=== PATIENT | female | born 1940 | race Caucasian/White ===

== ENCOUNTER → 2022-06-01 | Outpatient (CLI) | payer MEDICARE, SELFPAY ==
--- NOTE | 2022-06-01 13:31 | ECHOD_ITS ---
Reason For Study: AORTIC VALVE STENOSIS Procedure This was a 2D Doppler, Color Flow transthoracic echocardiogram. Exam performed in department. Left Ventricle Normal LV size. Left ventricular systolic function is normal. The estimated ejection fraction is 55 %. Stage 2 diastolic dysfunction. No regional wall motion abnormalities noted. Right Ventricle Normal RV size. Normal systolic function. Mitral Valve Normal mitral valve. Mild (1+) eccentric mitral valve insufficiency. Tricuspid Valve Normal tricuspid valve. Mild tricuspid valve insufficiency. Pulmonary artery systolic pressure is 32 mmHg. Aortic Valve Trisinus/trileaflet aortic valve. Moderate focal aortic valve calcification. Peak aortic valve gradient 38 mmHg. Mean aortic valve gradient 24 mmHg. Mild to moderate aortic stenosis. Calculated aortic valve area (continuity equation) is 0.9 cm2. Mild (1+) aortic valve insufficiency. Pulmonic Valve Normal pulmonic valve. Trivial pulmonic valve insufficiency. Great Vessels Normal aortic root. The pulmonary artery is normal size. Normal inferior vena cava. Pericardium/Pleural No pericardial effusion. MMode/2D Measurements & Calculations LVIDd: 4.7 cm IVSd: 0.98 cm LVOT diam: 2.0 cm LVIDs: 3.2 cm LVPWd: 0.97 cm LVOT area: 3.3 cm2 RVDd: 3.6 cm FS: 30.8 % Ao root diam: 3.1 cm LAV(MOD-bp): 66.1 ml LVAd ap4: 27.9 cm2 LAV(MOD-bp) Indexed: 39.0 ml/m2 LVLd ap4: 7.0 cm LAV(MOD-sp2): 65.8 ml EDV(MOD-sp4): 88.1 ml LAV(MOD-sp4): 60.2 ml EDV(sp4-el): 93.7 ml LVAs ap4: 15.3 cm2 LVLs ap4: 5.6 cm ESV(MOD-sp4): 36.1 ml ESV(sp4-el): 35.9 ml EF(MOD-sp4): 59.0 % EF(sp4-el): 61.7 % SV(MOD-sp4): 52.0 ml SV(sp4-el): 57.8 ml LA A4 area: 20.6 cm2 LA dimension(2D): 4.3 cm RA A4 area: 13.9 cm2 Time Measurements MV dec time: 0.24 sec Doppler Measurements & Calculations MV E max ever: 95.6 cm/sec Lat Peak E' Ever: 11.3 cm/sec Med Peak E' Ever: 7.1 cm/sec MV A max ever: 66.3 cm/sec E/E' lat: 8.5 E/E' med: 13.5 MV E/A: 1.4 Ao V2 max: 307.0 cm/sec LV V1 max: 87.1 cm/sec SV(LVOT): 67.2 ml Ao max P.8 mmHg LV V1 max P.0 mmHg Ao V2 mean: 232.7 cm/sec LV V1 mean P.5 mmHg Ao mean P.0 mmHg LV V1 mean: 57.0 cm/sec Ao V2 VTI: 71.7 cm LV V1 VTI: 20.6 cm SATISH(I,D): 0.94 cm2 SATISH(V,D): 0.93 cm2 PA V2 max: 82.3 cm/sec TR max ever: 266.7 cm/sec TR max P.8 mmHg ECHO/Echo Complete Interpretation Summary Normal LV size. Left ventricular systolic function is normal. The estimated ejection fraction is 55 %. Moderate focal aortic valve calcification. Stage 2 diastolic dysfunction. Mean aortic valve gradient 24 mmHg. Mild to moderate aortic stenosis. Calculated aortic valve area (continuity equation) is 0.9 cm2. Ordering Physician: MITRA MORENO Referring Physician: MEETA CARLIN Performed By: Miranda Gillespie RDCS
== END | disposition home or self-care (01) ==
LOC: CVS 13:28
PROVIDERS: PCP Internal Medicine
DX: I35.0 Nonrheumatic aortic (valve) stenosis (principal)
CPT/HCPCS: 93306

== ENCOUNTER 2022-07-25 12:52 | Emergency (ER) | payer MEDICARE, SELFPAY ==
[2022-07-25 12:54] VITALS: BP 139/76; PULSE 78; RESP 14; TEMP 37.3; O2SAT 95; BMI 28.4
[2022-07-25 14:34] VITALS: O2SAT 96
--- NOTE | 2022-07-25 14:43 | RAD_ITS ---
STUDY: X-RAY CHEST REASON FOR EXAM: Female, 82 years old. cough TECHNIQUE: Single AP portable view of the chest. COMPARISON: None. FINDINGS: There are interstitial fibrotic changes of the lungs. No superimposed alveolar opacity within the lungs to suggest pneumonia or atelectasis per There is no demonstrated pleural abnormality. Normal size heart. Normal mediastinum and herb. Normal visualized pulmonary arteries. Normal visualized aortic arch and descending thoracic aorta. Normal visualized thoracic spine. Normal visualized ribs, clavicles, and shoulders. There is no demonstrated abnormality of the visualized soft tissue structures of the upper abdomen. RAD/Chest 1 View (Portable) IMPRESSION: Scarring but no active disease. Electronically Signed: Gold De Los Santos MD at 16:02 EST ,
--- NOTE | 2022-07-25 14:43 | EX.ED.VIS.UR ---
HPI HPI - URI History of Present Illness Chief Complaint: Cough Detail of Chief Complaint: For weeks to months Informant: patient and spouse/S.O. Onset/Context/Timing Onset: Weeks and Month(s) Context: Gradual Onset Timing: Intermittent Current Severity: Mild Maximum Severity: Mild Associated Symptoms Associated Symptoms: Positive for Productive Cough and - (Yellowish and green sputum. No hemoptysis.); Negative for Shortness of Breath Narrative Narrative: 82-year-old female past medical history of reflux. Said since March she has had intermittent episodes of cough with yellowish to greenish sputum. Intermittent fevers which have resolved. We will do an urgent care 2 weeks ago. Was placed on expectorant. Not treated with any antibiotics. They did not do an x-ray. She is also been complaining chronic diarrhea. Denies any melena. Has an upcoming GI appointment. Smoked in the past but currently non-smoker. Prior similar symptoms: Yes Recent Illness/Hospitalization: No ROS ROS ED ROS Narrative Cough. Diarrhea. Review of Systems ROS Unobtainable: Denies due to encephalopathy Constitutional Constitutional ED: Reports fever(s); Denies chills Eyes Eyes: Denies blurry vision ENT ENT ED: Denies ear pain Cardiovascular Cardiovascular: Denies chest pain or palpitations Respiratory/Chest Respiratory/Chest: Reports cough; Denies dyspnea Gastrointestinal Gastrointestinal: Reports diarrhea; Denies abdominal pain, constipation, melena, nausea or vomiting Genitourinary Genitourinary ED: Denies dysuria or hematuria Musculoskeletal Musculoskeletal: Denies arthralgias Integumentary Denies abscess Neurologic Neurologic: Denies headache(s) Psychiatric Psychiatric: Denies anxiety Endocrine Endocrinology: Denies cold intolerance Hematologic/Lymphatic Hematologic/Lymphatic: Denies easy bleeding Allergic/Immunologic Allergic/Immunologic ED: Denies mouth swelling or tongue swelling [facility] Medical History Bronchitis FHx: cholecystectomy Home Medications levofloxacin 500 mg tablet 500 mg PO DAILY #7 tabs 07/25/22 [Rx Last Taken Unknown] prednisone 20 mg tablet 40 mg PO DAILY 5 days #10 tabs 07/25/22 [Rx Last Taken Unknown] Allergy/AdvReac Type Severity Reaction Status Date / Time azithromycin Allergy Hives Verified 07/25/22 12:54 codeine AdvReac Upset Verified 07/25/22 12:54 Stomach Social History Smoking Status: Never smoker EXAM Physical Exam Narrative Exam Narrative: 82-year-old female no acute distress. Vital signs stable afebrile. Pulse ox 95% on room air no signs hypoxia. H EENT exam unremarkable. Moist Riis members. Neck nontender no JVD. No lymphadenopathy. Lungs few scant expiratory wheezes. No rales or rhonchi. Equal symmetrical. Heart regular rhythm rate about 80 no murmur. Abdomen soft nontender. Moving all 4 extremities. Calves are nontender without edema or cords. Neurologic exam awake alert no focal motor deficits. Back nontender. Const Vital Signs: 07/25/22 12:54 07/25/22 14:34 07/25/22 14:54 Temperature 99.1 F Temperature Source Temporal Pulse Rate 78 72 Respiratory Rate 14 18 Respiratory Effort Normal Blood Pressure 139/76 H Blood Pressure Mean 97 Pulse Ox 95 Oxygen Delivery Method Room Air Room Air 07/25/22 14:54 Temperature Temperature Source Pulse Rate Respiratory Rate Respiratory Effort Blood Pressure Blood Pressure Mean Pulse Ox 97 Oxygen Delivery Method Room Air Positive well nourished and well developed; Negative for obese, cachectic or contractures General Appearance ED: well developed and NAD; Negative for cachectic, contractures, cyanotic, diaphoretic or pallor Nutritional Appearance: Negative for cachectic or obese HEENT Reports moist mucous membranes; Denies dry mucous membranes normocephalic and atraumatic; Negative for scalp tenderness Face and Sinus: Negative for sinus tenderness Mouth ED: No dry mucous membranes Mouth: No dry mucous membranes Teeth and Gingiva: Negative for caries Throat: posterior oropharynx normal Eyes PERRL and EOMs intact bilaterally General Eye ED: Negative for pale conjunctiva or scleral icterus Neck no lymphadenopathy, supple, no meningeal signs and no JVD General: Negative for anterior neck swelling or lymphadenopathy Resp normal respiratory effort and No clear to auscultation bilaterally Effort and Inspection: Negative for retractions or pain with movement Auscultation: wheezes; Negative for rales, rhonchi or diminished lung sounds Cardio S1 normal heart sound, S2 normal heart sound and no murmurs Rate: regular rate; Negative for bradycardia or tachycardic Rhythm: regular rhythm GI non-tender, non-distended and no masses Inspection: Negative for abdominal distention Auscultation: normoactive bowel sounds Palpation: soft; Negative for tender or guarding Back/Spine no CVA tenderness and normal ROM General Back: Negative for CVA tenderness Cervical Spine: Negative for cervical spine tenderness Thoracic Spine / Upper Back: Negative for thoracic spinal tenderness Lumbar Spine / Lower Back: Negative for lumbar spinal tenderness Sacrum: Negative for tenderness Extremity normal to inspection and full ROM General Extremety ED: Negative for cyanosis or tenderness General Extremity: Negative for cyanosis Neuro oriented x3 and CN's II-XII intact bilaterally Sensorium / Orientation: alert, oriented to person, oriented to place and oriented to time; Negative for orientation impaired, lethargic or stuporous Motor Exam: strength 5/5 throughout; Negative for general weakness or strength abnormal Psych mental status grossly normal Appearance: Negative for other Attitude: No agitated Mood & Affect: Negative for depressed or anxious Skin General Skin Exam: Negative for jaundice or pallor Lesions: no lesions Rashes: no rashes Trauma: Negative for abrasion or laceration MDM MDM MDM Narrative Medical decision making narrative: 82-year-old female with chronic cough for the last 3 to 4 months. Chest x-ray to be obtained. She is also wheezing I will give her DuoNeb aerosols., She has had diarrhea but clinically does not look dehydrated. Has been holding down p.o. fluids. Repeat exam unchanged.Started on Levaquin for URI and Prednisone for the wheezing. Radiography Diagnostic Testing: Both legs. Chest x-ray, portable, single view interpreted by myself shows no acute abnormality. Normal cardiac silhouette. No infiltrate. Discharge Plan Triage Chief Complaint: Cough ED Provider: Marcelino Santiago Dx/Rx/DC Orders Clinical Impression: Bronchitis, Diarrhea Prescriptions: New levofloxacin 500 mg tablet 500 mg PO DAILY Qty: 7 0RF prednisone 20 mg tablet 40 mg PO DAILY 5 Days Qty: 10 0RF Primary Care Provider: Dewayne Rios Referrals: Dewayne Rios MD [Primary Care Provider] - 1 Week if not improving Activity Restrictions/Additional Instructions: Plenty of fluids and rest. Imodium as needed for your diarrhea. Levaquin, antibiotic, for the cough. Prednisone for the wheezing. Follow up if not improving. Disposition Disposition: Home, Self Care
[2022-07-25] MEDS: Ipratropium/Albuterol Sulfate 3 ML AMPUL.NEB INHALATION (14:50)
[2022-07-25 14:54] VITALS: PULSE 72; RESP 18; O2SAT 97
== END 2022-07-25 15:50 | disposition home or self-care (01) ==
PROVIDERS: Emergency Provider Emergency Medicine; PCP Internal Medicine; Visit Provider Emergency Medicine
DX: K52.9 Noninfective gastroenteritis and colitis, unspecified (principal); J40 Bronchitis, not specified as acute or chronic; Z87.891 Personal history of nicotine dependence; R09.3 Abnormal sputum
CPT/HCPCS: 99281; 71045; 94640; 99282

== ENCOUNTER 2022-07-28 14:32 | Emergency (ER) | payer MEDICARE, SELFPAY ==
[2022-07-28 14:33] VITALS: BP 124/93; PULSE 65; RESP 17; TEMP 36.2; O2SAT 94; BMI 26.4
--- NOTE | 2022-07-28 15:04 | EKG12_ITS ---
Test Reason : n/v 2 days, weak Blood Pressure : / mmHG Vent. Rate : 062 BPM Atrial Rate : 062 BPM P-R Int : 156 ms QRS Dur : 076 ms QT Int : 482 ms P-R-T Axes : 104 003 -06 degrees QTc Int : 489 ms Normal sinus rhythm Nonspecific ST abnormality Abnormal ECG Confirmed by LOBITO AUGUSTE, ELKE ([id number]), assignment editor DEMETRIA GONZALEZ ([id number]) on 08/02/2022 12:34:50 PM Referred By: Rosaline Confirmed By:ELKE ROBIN MD
--- NOTE | 2022-07-28 15:16 | NURSING ---
NO OLD EKGS
[2022-07-28] MEDS: 0.9% Normal Saline 1,000 ML 500 ML IV (15:18)
[2022-07-28] MEDS: Ondansetron 4 MG/2 ML Vial IV (15:19)
[2022-07-28 15:35] LABS: Absolute Lymphocyte Count 1.79 X10^3/uL (0.83-4.51); Absolute Neutrophil Count 8.1 X10^3/uL (2.0-7.7); Basophil# 0.06 X10^3/uL; Basophil% 0.5 % (0-1); Eosinophil# 0.03 X10^3/uL; Eosinophils% 0.3 % (0-5); Hematocrit 29.4 % (37-47); Lymphocyte # 1.79 X10^3/ul (0.83-4.51); Lymphocyte % 16.3 % (19-41); Mean Corp Hgb Conc 30.6 g/dL (32-36); Mean Corpuscular Hgb 25.6 pg (27.0-32.0); Mean Corpuscular Volume 83.8 fL (81-99); Monocyte# 0.93 X10^3/uL; Monocyte% 8.5 % (0-10); NRBC Flagged by Analyzer 0 % (0-5); Neutrophil % 73.9 % (47-70); Platelet Count 586 K/mm3 (150-450); RBC Distribution Width CV 15.6 % (11.6-14.6); RBC Distribution Width SD 47.1 fl (35.1-43.9); Red Blood Count 3.51 M/mm3 (4.2-5.4)
[2022-07-28 15:50] LABS: ALB/GLOB Ratio 0.7 RATIO (0.9-2.4); AST(SGOT) 16 U/L (15-37); Alanine Aminotransfer ALT/SGPT 21 U/L (13-56); Alkaline Phosphatase 65 U/L (45-117); Anion Gap 5 (5-15); BUN 15 mg/dL (7-18); BUN/Creat Ratio 19.8 RATIO (10-20); Calcium,Total 9.2 mg/dL (8.5-10.1); Chloride 110 mmol/L (98-107); Creatinine, Serum 0.76 mg/dL (0.55-1.02); EST Glomerular Filtration Rate 78 mL/min (>60); Est Glom Filt Rate - Afr Amer 94 mL/min (>60); Estimated Creatinine Clearance 33.29 ml/min; Globulin 4.5 g/dL (2.2-4.2); Glucose 102 mg/dL (74-106); Lipase 59 U/L (73-393); Potassium 3.4 mmol/L (3.5-5.1); Protein, Total 7.5 g/dL (6.4-8.2); Sodium Level 144 mmol/L (136-145)
[2022-07-28 16:41] LABS: Red Blood Cells-Urine 0 SEEN /hpf (0-5)
--- NOTE | 2022-07-28 16:43 | EX.ED.DYSGE1 ---
HPI History of Present Illness Chief Complaint: Nausea/Vomiting Informant: patient Narrative Narrative: Patient is an 82 year old female with history of chronic diarrhea presenting with nausea and vomiting. Patient has had an ongoing cough and was prescribed Levaquin 3 days ago. Since starting this, she has had nausea and vomiting. She has now also had worsening of her chronic diarrhea. She denies any significant abdominal pain but notes her abdomen feels sore from the vomiting. She denies any black or blood in her stool. denies any fevers. No change in her cough. No other complaints at this time. [facility] Medical History Bronchitis FHx: cholecystectomy Home Medications levofloxacin 500 mg tablet 500 mg PO DAILY #7 tabs 07/25/22 [Rx Last Taken Unknown] levofloxacin 500 mg tablet 500 mg PO DAILY #7 tabs 07/25/22 [Rx Last Taken Unknown] prednisone 20 mg tablet 40 mg PO DAILY 5 days #10 tabs 07/25/22 [Rx Last Taken Unknown] prednisone 20 mg tablet 40 mg PO DAILY 5 days #10 tabs 07/25/22 [Rx Last Taken Unknown] cefdinir 300 mg capsule 300 mg PO BID #10 caps 07/28/22 [Rx Last Taken Unknown] ferrous gluconate 324 mg (38 mg iron) tablet 324 mg PO BID #60 tabs 07/28/22 [Rx Last Taken Unknown] ondansetron 4 mg disintegrating tablet 4 mg PO Q6H PRN nausea and vomiting #20 tabs 07/28/22 [Rx Last Taken Unknown] prednisone 20 mg tablet 40 mg PO DAILY #4 tabs 07/28/22 [Rx Last Taken Unknown] Allergy/AdvReac Type Severity Reaction Status Date / Time azithromycin Allergy Hives Verified 07/28/22 14:32 codeine AdvReac Upset Verified 07/28/22 14:32 Stomach Social History Smoking Status: Never smoker ROS ROS ED Constitutional Constitutional ED: Denies chills or fever(s) Eyes Eyes: Denies change in vision ENT ENT ED: Denies rhinorrhea or sore throat Cardiovascular Cardiovascular: Denies chest pain or racing heartbeat Respiratory/Chest Respiratory/Chest: Reports cough; Denies dyspnea Gastrointestinal Gastrointestinal: Reports abdominal pain, diarrhea, nausea and vomiting; Denies constipation or melena Genitourinary Genitourinary ED: Denies dysuria or hematuria Musculoskeletal Musculoskeletal: Denies arthralgias or myalgias Integumentary Denies rash Neurologic Neurologic: Denies headache(s) Psychiatric Psychiatric: Denies anxiety EXAM Physical Exam Const Vital Signs: 07/28/22 14:33 Temperature 97.1 F L Temperature Source Temporal Pulse Rate 65 Respiratory Rate 17 Blood Pressure 124/93 H Blood Pressure Mean 103 Pulse Ox 94 Oxygen Delivery Method Room Air Positive well nourished and well developed General Appearance ED: well developed and NAD HEENT Reports moist mucous membranes Negative for trauma Eyes PERRL and EOMs intact bilaterally Neck supple Chest Wall inspection of chest normal and palpation of chest normal Resp normal respiratory effort Auscultation: wheezes scattered wheezes Cardio regular rate, regular rhythm and no murmurs GI normal to inspection, nondistended, normoactive bowel sounds and non-tender Back/Spine no CVA tenderness Neuro oriented x3 Sensorium / Orientation: alert Psych mental status grossly normal Skin no rashes or lesions noted and no wounds MDM MDM MDM Narrative Medical decision making narrative: Evaluate for worsening nausea and vomiting after being started on Levaquin for bronchitis. Patient appears nontoxic and in no acute distress. Her vital signs are normal. I did check basic labs to rule out any significant dehydration, electrolyte derangement or leukocytosis/other signs of infection. Patient is found to be anemic with a hemoglobin of 9.0. This appears to be microcytic. Patient states she has a longstanding history of anemia and she was eating high iron foods which had seemed to help it. She does not know what her baseline is. She does not seem to be symptomatic from the anemia and patient be referred to hematology as she does not have an appointment to see her primary care doctor for another 2 months. Patient's CMP is largely unremarkable. Her potassium is mildly low at 3.4. Her urinalysis is consistent with UTI as she has 10-25 white blood cells and 1+ bacteria with 500 leukocyte esterase. Patient notes the last time she had a kidney infection her only symptom was nausea and vomiting. I will switch the patient from Levaquin to cefdinir as this should cover for bronchitis as well as UTI. Urine culture is sent. Patient is agreeable this plan of care. Patient also be discharged home with 2 more days of prednisone as well as Zofran. She will be given a prescription of iron but counseled the hold off starting that until her nausea and vomiting has resolved. In addition she is encouraged to use her inhaler she does have scattered wheeze on exam and I think she probably does have a component of chronic bronchitis/reactive airway. Patient is tolerating oral fluids in the ER. Counseled on return precautions. She continues to have a benign abdominal exam and I do not think imaging is indicated at this time. Discharged home in improved and stable condition. Lab Data Attestation: I reviewed the patient's lab results. Labs: Laboratory Results - last 24 hr 07/28/22 07/28/22 07/28/22 15:20 15:20 16:32 WBC 11.0 RBC 3.51 L Hgb 9.0 L Hct 29.4 L MCV 83.8 MCH 25.6 L MCHC 30.6 L RDW Std Deviation 47.1 H RDW Coeff of Juanito 15.6 H Plt Count 586 H MPV 10.0 Immature Gran % (Auto) 0.500 Neut % (Auto) 73.9 H Lymph % (Auto) 16.3 L Cotton % (Auto) 8.5 Eos % (Auto) 0.3 Baso % (Auto) 0.5 Absolute Neuts (auto) 8.1 H Absolute Lymphs (auto) 1.79 Nucleated RBC % 0 Sodium 144 Potassium 3.4 L Chloride 110 H Carbon Dioxide 29.0 Anion Gap 5 BUN 15 Creatinine 0.76 Estim Creat Clear Calc 33.29 Est GFR (MDRD) Af Amer 94 Est GFR (MDRD) Non-Af 78 BUN/Creatinine Ratio 19.8 Glucose 102 Calcium 9.2 Total Bilirubin 0.30 AST 16 ALT 21 Alkaline Phosphatase 65 Total Protein 7.5 Albumin 3.0 L Globulin 4.5 H Albumin/Globulin Ratio 0.7 L Lipase 59 L Urine Color Yellow Urine Clarity Sl. Cloudy Urine pH 6.0 Ur Specific [place] 1.020 Urine Protein 30 H Urine Glucose (UA) Normal Urine Ketones 5 H Urine Occult Blood Negative Urine Nitrite Negative Urine Bilirubin Negative Urine Urobilinogen Normal Ur Leukocyte Esterase 500 H Urine RBC 0 SEEN Urine WBC 10-25 SEEN Ur Squamous Epith Cells 0-5 SEEN Urine Bacteria 1+ Hyaline Casts 0-5 SEEN Urine Mucus 4+ Rhythm Strip Rhythm Strip: Sinus Rhythm Rate: 62 Ectopy: None EKG Initial EKG: Attestation: I personally reviewed and interpreted this EKG as follows: Interpretation: Sinus Rhythm Comments: Normal sinus rhythm and rate of 62 bpm Normal axis Normal intervals Normal ST segments No prior EKG available for comparison Discharge Plan Triage Chief Complaint: Nausea/Vomiting ED Provider: Kaur Waggoner Dx/Rx/DC Orders Clinical Impression: Nausea & vomiting, Antibiotic drug intolerance, Acute UTI, Anemia Instructions: ED Anemia, Type Not Specified (Adult), ED Cystitis Female Adult, ED Vomiting (Adult) Prescriptions: New cefdinir 300 mg capsule 300 mg PO BID Qty: 10 0RF ondansetron 4 mg tablet,disintegrating 4 mg PO Q6H PRN (Reason: nausea and vomiting) Qty: 20 0RF ferrous gluconate 324 mg (38 mg iron) tablet 324 mg PO BID Qty: 60 0RF prednisone 20 mg tablet 40 mg PO DAILY Qty: 4 0RF No Action levofloxacin 500 mg tablet 500 mg PO DAILY Qty: 7 0RF prednisone 20 mg tablet 40 mg PO DAILY 5 Days Qty: 10 0RF levofloxacin 500 mg tablet 500 mg PO DAILY Qty: 7 0RF prednisone 20 mg tablet 40 mg PO DAILY 5 Days Qty: 10 0RF Primary Care Provider: Dewayne Rios Referrals: Ricki Schmitt MD [Med Staff - Active Staff] - As Needed Dewayne Rios MD [Primary Care Provider] - Activity Restrictions/Additional Instructions: Stop taking the levofloxacin. Continue taking the prednisone as well as your albuterol inhaler. You been given a new antibiotic to take. In addition you have been prescribed nausea medicine and an iron supplement. 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 Counseled on a liquid diet and then advancing her diet as tolerated. Given return precautions. Disposition Disposition: Home, Self Care
[2022-07-28 16:47] LABS: Color, Urine Yellow (Yellow); Glucose, Dipstick Normal (Normal); Ketone-Dipstick 5 mg/dl (Negative); Leukocyte Esterase-Dipstick 500 /ul (Negative); Nitrite-Dipstick Negative (Negative); Occult Blood-Urine Negative /ul (Negative); Protein-Dipstick 30 mg/dl (Negative); Urine Bilirubin Dipstick Negative (Negative); Urine Clarity Sl. Cloudy (Clear); Urine Urobilinogen Normal (Normal)
[2022-07-28 16:55] LABS: Mucous, Urine 4+ /hpf (<or=2+)
[2022-07-28 16:56] LABS: Hyaline Cast 0-5 SEEN /lpf (0-5); White Blood Cells 10-25 SEEN /hpf (0-5)
[2022-07-28 16:57] LABS: Bacteria 1+ /hpf (None Seen); Squamous Epithelial Cells - UA 0-5 SEEN /hpf (5-10)
[2022-07-28 17:08] VITALS: PULSE 84; RESP 15; O2SAT 97
== END 2022-07-28 17:28 | disposition home or self-care (01) ==
PROVIDERS: Emergency Provider Emergency Medicine; PCP Internal Medicine; Visit Provider Emergency Medicine
DX: N39.0 Urinary tract infection, site not specified (principal); K52.9 Noninfective gastroenteritis and colitis, unspecified; J40 Bronchitis, not specified as acute or chronic; D64.9 Anemia, unspecified; R11.2 Nausea with vomiting, unspecified
CPT/HCPCS: 80053; 81001; 83690; 85025; 87086; 87088; 93005; 96361; 96374; 99283; J7030; A4216; J2405

== ENCOUNTER 2022-08-25 10:43 | Emergency (ER) | payer MEDICARE, SELFPAY ==
[2022-08-25 10:43] VITALS: BP 132/76; PULSE 77; RESP 16; TEMP 36.4; O2SAT 95; BMI 27.3
--- NOTE | 2022-08-25 11:39 | EDS_ITS ---
HPI HPI - Fall History of Present Illness Chief Complaint: Fall Detail of Chief Complaint: Right sided rib pain status post fall Informant: patient Occured/Mechanism Occurred: Days (Fall occurred 5 days ago) Mechanism/Context: Yes same level fall Narrative: Patient tripped and fell onto the edge of a coffee table. She states she did not break her fall because she was holding an at the time Fall from Height (ft): Same level Usually ambulates: Without assistance Pain/Injury Location: Right ribs Pain Location: chest Quality of Pain: Dull and Aching Current Severity: Mild Maximum Severity: Moderate Worsened by: Movement of right upper extremity and breathing Relieved by: Nothing Associated Symptoms Associated Symptoms: Negative for Parasthesias, Weakness, Loss of function, Inability to ambulate, Loss of consciousness or Amnesia Narrative Narrative: Patient is an 82-year-old woman with history of iron deficiency anemia who presents after mechanical fall. She was carrying her when she fell. She did not break her fall. She hit the edge of the coffee table. She complains of pain under her left breast. She states it is too painful to put her bra on. Movement of her right upper extremity causes her pain. Breathing causes her pain. She denies pain referred to her shoulder. She is not on an anticoagulant. She lists allergy to codeine, upset stomach. This is not an allergy. She denies blood in her urine. She denies bruising easily. She denies bleeding of her gums when she brushes her teeth. She denies shortness of breath. Tetanus Immunization: Unknown Prior similar symptoms: No Recent Illness/Hospitalization: No [facility] Medical History (Updated 08/25/22 @ 12:[address] Abel Antunez MD) Bronchitis FHx: cholecystectomy Right rib fracture Home Medications levofloxacin 500 mg tablet 500 mg PO DAILY #7 tabs 07/25/22 [Rx Last Taken Unknown] levofloxacin 500 mg tablet 500 mg PO DAILY #7 tabs 07/25/22 [Rx Last Taken Unknown] cefdinir 300 mg capsule 300 mg PO BID #10 caps 07/28/22 [Rx Last Taken Unknown] ferrous gluconate 324 mg (38 mg iron) tablet 324 mg PO BID #60 tabs 07/28/22 [Rx Last Taken Unknown] hydrocodone-acetaminophen 5-325mg 5mg-325mg 1 tab PO Q6H PRN PRN Pain 4 days #16 TABLETS 08/25/22 [Rx Last Taken Unknown] Allergy/AdvReac Type Severity Reaction Status Date / Time azithromycin Allergy Hives Verified 07/28/22 14:32 erythromycin base Allergy Hives Verified 08/25/22 10:47 codeine AdvReac Upset Verified 07/28/22 14:32 Stomach Social History (Updated 08/25/22 @ 11:[address] Abel Antunez MD) household members: spouse Smoking Status: Never smoker substance use type: does not use ROS ROS ED Constitutional Constitutional ED: Denies chills, fever(s), subjective, sweats or weight loss Eyes Eyes: Denies blurry vision, change in vision or diplopia ENT ENT ED: Reports other Details: She denies epistaxis. And further detail HPI narrative ; Denies ear pain, rhinorrhea or sore throat Cardiovascular Cardiovascular: Reports chest pain; Denies palpitations or racing heartbeat Respiratory/Chest Respiratory/Chest: Denies cough, dyspnea or dyspnea on exertion Gastrointestinal Gastrointestinal: Denies abdominal pain, nausea or vomiting Genitourinary Genitourinary ED: Denies dysuria, hematuria or urinary frequency Musculoskeletal Musculoskeletal: Denies arthralgias, back pain, myalgias or neck pain Integumentary Denies rash Neurologic Neurologic: Denies paresthesias or weakness Hematologic/Lymphatic Hematologic/Lymphatic: Denies easy bleeding or easy bruising EXAM Physical Exam Const Vital Signs: 08/25/22 10:43 08/25/22 11:46 Temperature 97.6 F L Temperature Source Temporal Pulse Rate 77 Respiratory Rate 16 Respiratory Effort Normal Non-Labored Respiratory Depth Normal Respiratory Pattern Normal Blood Pressure 132/76 H Blood Pressure Mean 94 Pulse Ox 95 97 Oxygen Delivery Method Room Air Room Air Positive well nourished and well developed Constitutional Narrative: Patient appears uncomfortable when she moves on the examination cot. General Appearance ED: well developed HEENT Reports normocephalic and TM's clear HEENT Narrative: Head is atraumatic. Ears normal. There is no septal deviation hematoma. There is no clinical finding of basilar skull fracture. Tympanic Membrane ED: Yes TM's clear Eyes PERRL and EOMs intact bilaterally Eyes Narrative: There is no subconjunctival hemorrhage noted General Eye ED: Negative for pale conjunctiva or scleral icterus Neck full ROM, no lymphadenopathy and supple Neck Narrative: There is no pain posteriorly midline. Chest Wall inspection of chest normal; Negative for palpation of chest normal Chest Narrative: There is a clicking sensation with pressure to the sternum. Patient splints when she is asked to take a deep breath. There is no bruising noted. Resp normal respiratory effort, no retractions and clear to auscultation bilaterally Resp Narrative: Clicking sensation heard over right eighth or ninth rib with auscultation. There is no crepitus or subcutaneous air appreciated. Cardio regular rate, regular rhythm, S1 normal heart sound, S2 normal heart sound and no murmurs GI non-tender, non-distended and no masses GI Narrative: Specifically there is no tenderness right upper quadrant or right costal margin. Negative clinical Ascencio sign. No enlargement of the liver to percussion. Palpation: soft; Negative for guarding or rebound tenderness present Back/Spine no CVA tenderness General Back: Negative for CVA tenderness Thoracic Spine / Upper Back: Negative for thoracic spinal tenderness Neuro oriented x3, CN's II-XII intact bilaterally and moves all extremities Psych mental status grossly normal and thought process normal Skin Skin Narrative: No lesions or bruising noted area MDM MDM MDM Narrative Medical decision making narrative: Patient was medicated with oral opiate analgesia. X-ray was obtained to evaluate for pneumothorax and hemothorax. Clinically she has a right rib fracture. Even if there is no evidence of fracture on x-ray will treat as fracture since sensitivity is only 40 to 60%. Since there is no pain in the right upper quadrant no referred pain to the right trapezius or shoulder area CT of the abdomen was not obtained. If there is a lower rib fracture i.e. 05/10/[address] because of 10 to 15% incidence of hepatic injury. Patient was informed of results. She was discharged with pain medicine and incentive spirometer. She was reassessed at 1220 Radiography Diagnostic Testing: Three-view chest x-ray was independently reviewed interpreted by me at 08/01/2004. There is no evidence of pneumothorax or hemothorax. The film is underpenetrated. There is no obvious rib fractures noted. Cardiac silhouette and size unremarkable. Perihilar region looks normal. There is no widening the mediastinum. Since there is no evidence of pneumothorax or hemothorax will treat for rib fracture. Discharge Plan Triage Chief Complaint: Fall ED Provider: Antunez,Abel Dx/Rx/DC Orders Clinical Impression: Right rib fracture, Injury due to fall Instructions: ED Rib Fracture Prescriptions: New hydrocodone-acetaminophen [hydrocodone-acetaminophen] 5-325 mg tablet 1 tab PO Q6H PRN PRN (Reason: Pain) 4 Days Qty: 16 0RF No Action levofloxacin 500 mg tablet 500 mg PO DAILY Qty: 7 0RF levofloxacin 500 mg tablet 500 mg PO DAILY Qty: 7 0RF cefdinir 300 mg capsule 300 mg PO BID Qty: 10 0RF ferrous gluconate 324 mg (38 mg iron) tablet 324 mg PO BID Qty: 60 0RF Primary Care Provider: Dewayne Rios Referrals: Dewayne Rios MD [Primary Care Provider] - 1 Week if not improving Activity Restrictions/Additional Instructions: Use incentive spirometer every hour while awake for the next 5 to 7 days. Disposition Disposition: Home, Self Care
[2022-08-25] MEDS: HYDROcodone Bitartrate/Apap 5/325 Tablet PO (11:43)
[2022-08-25 11:46] VITALS: O2SAT 97
--- NOTE | 2022-08-25 11:50 | RAD_ITS ---
STUDY: X-RAY - UNILATERAL RIBS ( RIGHT ) WITH CHEST REASON FOR EXAM: Female, 82 years old. Blunt trauma, clinically patient has 8th rib fx TECHNIQUE - RIBS: 2 view(s) of the ribs. TECHNIQUE - CHEST: Single PA view of the chest. COMPARISON: Comparison is made with prior chest radiograph dated 07/25/2022. FINDINGS - RIBS: Nondisplaced fracture of the anterior lateral aspect of the right sixth rib. FINDINGS - CHEST: Elevation of the right hemidiaphragm. Scattered bilateral calcified granulomas. Stable scarring in the lung apices. There is no demonstrated pleural abnormality. Normal size heart. Normal mediastinum and herb. Normal visualized pulmonary arteries. There is atherosclerotic calcification of the aortic arch with tortuosity. There are diffuse degenerative changes of the visualized thoracic spine. Normal visualized ribs, clavicles, and shoulders. There is no demonstrated abnormality of the visualized soft tissue structures of the upper abdomen. RAD/Ribs Uni Min 3V w/PA Chest IMPRESSION: RIBS: Nondisplaced fracture along the anterior lateral aspect of the right sixth rib. CHEST: Elevation of the right hemidiaphragm. The lungs are unchanged. Electronically Signed: Rocky Greer MD at 12:40 EST ,
[2022-08-25 12:32] VITALS: BP 139/75; PULSE 68; RESP 15; O2SAT 98
== END 2022-08-25 12:36 | disposition home or self-care (01) ==
PROVIDERS: Emergency Provider Emergency Medicine; PCP Internal Medicine; Visit Provider Emergency Medicine
DX: S22.31XA Fracture of one rib, right side, initial encounter for closed fracture (principal); W01.190A Fall on same level from slipping, tripping and stumbling with subsequent striking against furniture, initial encounter
CPT/HCPCS: 71101; 99283

== ENCOUNTER 2023-04-24 16:09 | Emergency (ER) | payer MEDICARE, SELFPAY ==
[2023-04-24 16:10] VITALS: BP 130/73; PULSE 50; RESP 16; TEMP 36.9; O2SAT 98; BMI 25.4
--- NOTE | 2023-04-24 17:47 | CT_ITS ---
STUDY: CT BRAIN WITHOUT CONTRAST REASON FOR EXAM: Female, 83 years old. fall, head injury RADIATION DOSAGE (If Supplied By Facility): CTDIvol = ( 47.06 ) mGy, DLP = ( 890.33 ) mGycm TECHNIQUE: Transaxial CT imaging of the brain was performed without administration of intravenous contrast material. Individualized dose optimization techniques were used for this CT. COMPARISON: No relevant priors. FINDINGS: Normal soft tissue structures. Normal calvarium. Normal size ventricles and extra-axial spaces for the patient''s age. Normal white matter tracts of the cerebral hemispheres. Normal basal ganglia and thalami. Normal brainstem. Normal cerebellum. There is no intracranial hemorrhage. There are no findings of an acute ischemic infarction. Normal visualized paranasal sinuses. CT/Brain/Head without Contrast IMPRESSION: Normal unenhanced CT scan of the brain. Electronically Signed: Nicola Becerra DO at 18:45 EDT ,
--- NOTE | 2023-04-24 17:47 | RAD_ITS ---
INDICATION: injury EXAMINATION/TECHNIQUE: X-RAY - LEFT XR Wrist 2 Views COMPARISON: FINDINGS: SOFT TISSUES: No soft tissue swelling or gas. No radiopaque foreign body. BONES/JOINTS: No acute fracture or subluxation.. Normal alignment. Preservation of the joint space.. No sclerotic or destructive changes observed. RAD/Wrist 2 Views IMPRESSION: Negative. Electronically Signed: Nicola Becerra DO at 18:55 EDT ,
--- NOTE | 2023-04-24 17:47 | CT_ITS ---
STUDY: CT CERVICAL SPINE WITHOUT CONTRAST REASON FOR EXAM: Female, 83 years old. neck pain, fall RADIATION DOSAGE (If Supplied By Facility): CTDIvol = ( 47.06 ) mGy, DLP = ( 890.33 ) mGycm TECHNIQUE: High resolution transaxial imaging was performed without contrast material. Sagittal and coronal images were reconstructed. Individualized dose optimization techniques were used for this CT. COMPARISON: None FINDINGS: Normal craniovertebral junction. Normal anterior atlantoaxial articulation. Normal odontoid process. Normal cervical lordosis. Normal vertebral bodies and posterior osseous elements. C2-3: Normal endplates. Normal disc height and morphology. Normal central canal and intervertebral neuroforamina. C3-4: Normal endplates. Normal disc height and morphology. Normal central canal. Uncovertebral spurring narrowing the right intervertebral neural foramen. C4-5: Normal endplates. Normal disc height and morphology. Normal central canal. Uncovertebral spurring slightly narrowing the intervertebral neuroforamina. C5-6: Normal endplates. Normal disc height and morphology. Normal central canal. Uncovertebral spurring slightly narrowing the intervertebral neuroforamina, right more than left. C6-7: Normal endplates. Normal disc height and morphology. Normal central canal and intervertebral neuroforamina. C7-T1: Normal endplates. Normal disc height and morphology. Normal central canal and intervertebral neuroforamina. Normal visualized soft tissue structures. Bilateral apical scarring. CT/Spine Cervical without Contras IMPRESSION: Mild degenerative changes of the cervical spine. Electronically Signed: Nicola Becerra DO at 18:54 EDT Reading Location ID and State: [facility] / [place] Tel [phone], Service support ,
--- NOTE | 2023-04-24 17:49 | EX.ED.DYSGE1 ---
HPI <BRETT Huynh - Last Filed: 04/24/23 20:11> History of Present Illness Chief Complaint: Fall Narrative Narrative: Patient presenting today for evaluation after mechanical fall that occurred this afternoon. She reports that she tripped over the dog steps that are next to her bed and landed on her left side hitting her head on the ground. She did not lose consciousness. She reports pain to her head, neck, left side of her face, left shoulder, and left wrist. She denies any other injury. She is able to ambulate. PFSH <BRETT Huynh - Last Filed: 04/24/23 20:11> PFSH Medical History Bronchitis FHx: cholecystectomy Right rib fracture Home Medications levofloxacin 500 mg tablet 500 mg PO DAILY #7 tabs 07/25/22 [Rx Last Taken Unknown] levofloxacin 500 mg tablet 500 mg PO DAILY #7 tabs 07/25/22 [Rx Last Taken Unknown] cefdinir 300 mg capsule 300 mg PO BID #10 caps 07/28/22 [Rx Last Taken Unknown] ferrous gluconate 324 mg (38 mg iron) tablet 324 mg PO BID #60 tabs 07/28/22 [Rx Last Taken Unknown] hydrocodone-acetaminophen 5-325mg 5mg-325mg 1 tab PO Q6H PRN PRN Pain 4 days #16 TABLETS 08/25/22 [Rx Last Taken Unknown] Allergy/AdvReac Type Severity Reaction Status Date / Time azithromycin Allergy Hives Verified 04/24/23 16:10 erythromycin base Allergy Hives Verified 04/24/23 16:10 codeine AdvReac Upset Verified 04/24/23 16:10 Stomach Social History household members: spouse Smoking Status: Never smoker substance use type: does not use ROS <BRETT Huynh - Last Filed: 04/24/23 20:11> ROS ED Constitutional Constitutional ED: Denies chills or fever(s) Eyes Eyes: Denies change in vision Cardiovascular Cardiovascular: Denies chest pain Respiratory/Chest Respiratory/Chest: Denies cough or dyspnea Gastrointestinal Gastrointestinal: Denies abdominal pain, nausea or vomiting Musculoskeletal Musculoskeletal: Reports arthralgias and neck pain; Denies back pain or myalgias Integumentary Denies Abrasions Neurologic Neurologic: Reports headache(s); Denies confusion, dizziness or weakness EXAM <BRETT Huynh - Last Filed: 04/24/23 20:11> Physical Exam Const Vital Signs: 04/24/23 16:10 04/24/23 17:34 Temperature 98.5 F Temperature Source Temporal Pulse Rate 50 L Respiratory Rate 16 Respiratory Effort Normal Blood Pressure 130/73 H Blood Pressure Mean 92 Pulse Ox 98 Oxygen Delivery Method Room Air Positive well nourished, well developed and no apparent distress General Appearance ED: well developed HEENT Reports normocephalic and head/scalp atraumatic Mouth ED: Yes moist mucous membranes normal Eyes PERRL and EOMs intact bilaterally Neck full ROM and supple Neck Narrative: No midline cervical tenderness Chest Wall inspection of chest normal Resp normal respiratory effort and clear to auscultation bilaterally Cardio regular rate and regular rhythm GI soft to palpation, non-tender, non-distended and no masses Back/Spine normal ROM and normal to inspection Extremity normal to inspection and full ROM Extremity Narrative: Patient palpation to the left wrist and left shoulder, full range of motion of left wrist and left shoulder. Radial pulse 2+ and equal bilaterally, good capillary refill, sensation intact. Neuro oriented x3, CN's II-XII intact bilaterally, moves all extremities, no focal motor deficits and no sensory deficits noted Sensorium / Orientation: awake and alert Psych mental status grossly normal and thought process normal Skin no rashes or lesions noted and no wounds <Dr. Ariel Melendez DO - Last Filed: 04/25/23 00:13> Physical Exam Const Vital Signs: 04/24/23 16:10 04/24/23 17:34 Temperature 98.5 F Temperature Source Temporal Pulse Rate 50 L Respiratory Rate 16 Respiratory Effort Normal Blood Pressure 130/73 H Blood Pressure Mean 92 Pulse Ox 98 Oxygen Delivery Method Room Air MDM <BRETT Huynh - Last Filed: 04/24/23 20:11> MDM MDM Narrative Medical decision making narrative: Patient presenting due to a mechanical fall that occurred this afternoon. She is well-appearing and in no acute distress, vitals unremarkable. She did hit her head and is reporting pain to her head and neck. She also reports pain to her left wrist and shoulder. Head and cervical spine CTs will be obtained to rule out intracranial bleed and cervical fracture. X-rays of the left wrist and shoulder will be obtained to rule out fracture/dislocation. X-rays are negative, CTs are negative for any acute findings. I will give her a wrist splint for comfort and she has been given RICE instructions. She is to follow-up with her PCP and will be discharged home in stable condition. She is comfortable with plan. She has been given head injury precautions. Radiography Diagnostic Testing: Clinical Impression(s) from Imaging Studies Brain CT 04/24/23 17:47 IMPRESSION: Normal unenhanced CT scan of the brain. Electronically Signed: Nicola Becerra DO at 18:45 EDT , Cervical Spine CT 04/24/23 17:47 IMPRESSION: Mild degenerative changes of the cervical spine. Electronically Signed: Nicola Becerra DO at 18:54 EDT , Wrist X-Ray 04/24/23 17:47 IMPRESSION: Negative. Electronically Signed: Nicola Becerra DO at 18:55 EDT , Shoulder X-Ray 04/24/23 18:11 IMPRESSION: No acute bony injury. Electronically Signed: Nicola Becerra DO at 19:07 EDT , <Dr. Ariel Melendez, DO - Last Filed: 04/25/23 00:13> MDM Radiography Diagnostic Testing: Clinical Impression(s) from Imaging Studies Brain CT 04/24/23 17:47 IMPRESSION: Normal unenhanced CT scan of the brain. Electronically Signed: Nicola Becerra DO at 18:45 EDT , Cervical Spine CT 04/24/23 17:47 IMPRESSION: Mild degenerative changes of the cervical spine. Electronically Signed: Nicola Becerra DO at 18:54 EDT , Wrist X-Ray 04/24/23 17:47 IMPRESSION: Negative. Electronically Signed: Nicola Becerra DO at 18:55 EDT , Shoulder X-Ray 04/24/23 18:11 IMPRESSION: No acute bony injury. Electronically Signed: Nicola Becerra DO at 19:07 EDT , Treatment and Re-Evaluation :: ED attending note: I evaluated the patient in conjunction with the [facility]. I agree with his/her statements and above findings. I have personally performed a face to face assessment of the patient and have reviewed the [facility] Note. I performed a substantive portion of the visit including all aspects of the following. I personally saw the patient performed chart review, physical exam, reviewed labs, imaging (if obtained), and formulated a treatment and management plan. Brief history: 83-year-old female here for mechanical fall. Notes head trauma is not on blood thinners. Notes left wrist pain Exam: Nursing triage notes reviewed, Vital signs reviewed Primary Survey Airway: Intact Breathing: Bilateral breath sounds Circulation: Palpable bilateral femorals, Palpable bilateral radial, Palpable bilateral DP and Palpable bilateral PT Disability / Spine precautions GCS Score: Eye Openin Verbal Response: 5 Motor Response: 6 Secondary Survey Constitutional: Please see MDM Head: bruising noted to left orbit Midface stable, NO jaw malocclusion, No Cephalohematoma, and No Lacerations noted Eye: no ocular involvement. Pupils equal round and reactive to light, Extraocular muscles intact and No periorbital ecchymosis or stepoff, no evidence of entrapment ENT: Oropharynx clear, no lacerations, no hemotympanum, no raccoon eyes or wood sign Cervical spine / Neck: No cervical spine bony tenderness, crepitance, or stepoff deformity Trachea midline Lungs: Clear to auscultation, No asymmetric rise and No crepitus, no flail chest Cardiac: Regular rate and rhythm and No murmurs Abdomen: Soft, Nontender and No rebound Pelvis: Pelvis stable to compression : No evidence of genital injury Back: No midline bony tenderness to thoracic/lumbar/sacral spines Neuro: At baseline, intact strength and sensation in bilateral upper and lower extremities. 2+ patellar reflexes bilaterally. Extremities: NO gross Deformities Psych: Normal affect Nursing triage notes reviewed, Vital signs reviewed MDM/plan: Chief Complaint: Fall, head trauma, left wrist pain External records reviewed: Imaging reviewed: Rib x-ray from July 2022 shows nondisplaced right sixth rib fracture Factors affecting care: Hypothyroidism Social determinants of health: Elderly History obtained from others: The patient's MDM narrative: Patient was hemodynamically stable, afebrile, nontoxic-appearing. Primary secondary trauma surveys concerning for intracranial, cervical spine, left shoulder left wrist traumatic injuries. I considered the following differential diagnosis: ICH, cervical spine fracture dislocation, wrist fracture dislocation, shoulder fracture dislocation We will obtain a broad imaging work-up to further elucidate the etiology of his complaints. We will dispo based on results of imaging studies, tertiary exam, shared decision-making and repeat vital sign assessment. Consults: None at this time potentially orthopedic surgery or trauma surgery if the patient has signs of severe life-threatening traumatic injury Shared decision making: I will have a discussion with the patient and or visitors regarding risk/benefits of further testing or admission. They will be made aware of of the risk/benefits inherent in this decision they will be given the opportunity to voice understanding. Discharge Plan Triage Chief Complaint: Fall ED Midlevel Provider: Valentine Blake ED Provider: Ariel Melendez Dx/Rx/DC Orders Clinical Impression: Facial contusion, Head injury, Fall, Contusion of left shoulder, Left wrist sprain Instructions: ED Facial Contusion, ED Head Injury (Adult), ED Wrist Sprain Prescriptions: No Action levofloxacin 500 mg tablet 500 mg PO DAILY Qty: 7 0RF levofloxacin 500 mg tablet 500 mg PO DAILY Qty: 7 0RF cefdinir 300 mg capsule 300 mg PO BID Qty: 10 0RF ferrous gluconate 324 mg (38 mg iron) tablet 324 mg PO BID Qty: 60 0RF hydrocodone-acetaminophen [hydrocodone-acetaminophen] 5-325 mg tablet 1 tab PO Q6H PRN PRN (Reason: Pain) 4 Days Qty: 16 0RF Primary Care Provider: Dewayne Rios Referrals: Dewayne Rios MD [Primary Care Provider] - 5-7 Days Activity Restrictions/Additional Instructions: Please follow-up with your PCP, you can wear the splint on your wrist for comfort. You may need repeat x-rays of your wrist if you continue to have pain. You can take Tylenol for your pain. Ice your wrist several times a day for the next few days. Disposition Disposition: Home, Self Care Discharge Date/Time: 04/24/23 19:32
--- NOTE | 2023-04-24 18:11 | RAD_ITS ---
INDICATION: pain EXAMINATION/TECHNIQUE: X-RAY - LEFT XR Shoulder 4 VIEWS COMPARISON: FINDINGS: SOFT TISSUES: No soft tissue swelling or gas. No radiopaque foreign body. BONES/JOINTS: No acute fracture or subluxation.. Degenerative hypertrophy at the acromioclavicular articulation. Preservation of the joint space.. No sclerotic or destructive changes observed. RAD/Shoulder min 2 Views IMPRESSION: No acute bony injury. Electronically Signed: Nicola Becerra DO at 19:07 EDT ,
== END 2023-04-24 19:32 | disposition home or self-care (01) ==
PROVIDERS: Emergency Provider Emergency Medicine; PCP Internal Medicine; Visit Provider Emergency Medicine
DX: S00.83XA Contusion of other part of head, initial encounter (principal); S40.012A Contusion of left shoulder, initial encounter; E03.9 Hypothyroidism, unspecified; S63.502A Unspecified sprain of left wrist, initial encounter; W01.0XXA Fall on same level from slipping, tripping and stumbling without subsequent striking against object, initial encounter
CPT/HCPCS: 29125; 70450; 72125; 73030; 73100; 99285

== ENCOUNTER 2023-06-20 17:45 | Inpatient (IN) | payer MEDICARE, SELFPAY ==
[2023-06-20] VITALS (10 sets, daily range): BP systolic 146–168; BP diastolic 58–139; PULSE 47–58; RESP 16–19; TEMP 36.6–36.8; O2SAT 90–97; BMI 27.1; BMI 26.4
[2023-06-20] MEDS: Aspirin 81 MG TAB.CHEW 324 MG PO (18:49)
--- NOTE | 2023-06-20 18:50 | RAD_ITS ---
INDICATION: chest pain EXAMINATION/TECHNIQUE: X-RAY - XR Chest 1 View COMPARISON: FINDINGS: LINES/DEVICES: None. LUNGS: Possible mild right upper lobe infiltrate/scarring. Slightly elevated right hemidiaphragm. No pneumothorax. MEDIASTINUM AND CARDIOVASCULAR STRUCTURES: Cardiac silhouette not enlarged. Central airways and mediastinal contour are unremarkable. BONES AND SOFT TISSUES: Degenerative vertebral changes. RAD/Chest 1 View (Portable) IMPRESSION: Possible mild right upper lobe infiltrate/scarring Electronically Signed: Nicola Becerra DO at 19:13 EST ,
[2023-06-20 19:03] LABS: Absolute Lymphocyte Count 3.88 X10^3/uL (0.83-4.51); Absolute Neutrophil Count 4.7 X10^3/uL (2.0-7.7); Basophil# 0.09 X10^3/uL; Basophil% 0.9 % (0-1); Eosinophil# 0.19 X10^3/uL; Eosinophils% 1.9 % (0-5); Hematocrit 39.1 % (37-47); Hemoglobin 12.4 g/dL (12.0-15.0); Lymphocyte # 3.88 X10^3/ul (0.83-4.51); Lymphocyte % 38.7 % (19-41); Mean Corp Hgb Conc 31.7 g/dL (32-36); Mean Corpuscular Hgb 30.2 pg (27.0-32.0); Mean Corpuscular Volume 95.1 fL (81-99); Mean Platelet Vol. 11.1 fl (6.2-12.0); NRBC Flagged by Analyzer 0 % (0-5); Neutrophil # 4.74 X10^3/uL (2.7-7.7); Neutrophil % 47.2 % (47-70); Platelet Count 394 K/mm3 (150-450); RBC Distribution Width CV 13.2 % (11.6-14.6); RBC Distribution Width SD 45.8 fl (35.1-43.9); Red Blood Count 4.11 M/mm3 (4.2-5.4)
[2023-06-20 19:13] LABS: Partial Thromboplast Time 23.7 Seconds (24.1-36.2)
[2023-06-20 19:20] LABS: Anion Gap 3 (5-15); BUN 10 mg/dL (7-18); Calcium,Total 9.5 mg/dL (8.5-10.1); Chloride 104 mmol/L (98-107); Creatinine, Serum 0.91 mg/dL (0.55-1.02); EST Glomerular Filtration Rate 63 mL/min (>60); Est Glom Filt Rate - Afr Amer 77 mL/min (>60); Estimated Creatinine Clearance 35.97 ml/min; Glucose 94 mg/dL (74-106); Potassium 3.7 mmol/L (3.5-5.1); Sodium Level 139 mmol/L (136-145); Troponin-I HS 106 pg/mL (3.0-54.0)
--- NOTE | 2023-06-20 19:26 | ED.VIS.CHEST ---
HPI History of Present Illness Chief Complaint: Chest Pain Onset/Context/Timing Onset: Days (6) Activity at onset: sudden Timing: Waxes and wanes Quality: Positive for Sharp Location: Left Chest and - (Left arm) Worsened By: Movement of Arm Relieved By: Antacids and - (Tylenol) Associated Symptoms: Positive for Cough; Negative for Nausea, Vomiting, Diaphoresis, Dyspnea, Fever, Lightheadedness, Acid Reflux or Palpitations Narrative Narrative: Patient presents with chest pain that began 6 days ago. Patient states it has been waxing and waning. Patient describes her pain as sharp. Patient states it is over the left chest and radiates into her left shoulder and left arm. Patient states it is worse with movement of her left arm. Patient states that it gets better with Tums and Tylenol. Patient admits to a cough. Patient states she is coughing up some yellow sputum. Patient denies any fevers or chills. Patient denies any shortness of breath. Patient denies any lightheadedness or dizziness. Patient denies any nausea or vomiting. CVD Risk Factors: Negative for Hypertension, Diabetes, Hypercholesterolemia, Family History 1' </=55 or Smoking PE Risk Factors: Negative for Recent Travel/Surgery, Recent Immobilization, Prior DVT or PE, Cancer or OCP + Smoking + >/=35 PFSH PFSH Medical History Bronchitis FHx: cholecystectomy Right rib fracture Home Medications levofloxacin 500 mg tablet 500 mg PO DAILY #7 tabs 07/25/22 [Rx Last Taken Unknown] levofloxacin 500 mg tablet 500 mg PO DAILY #7 tabs 07/25/22 [Rx Last Taken Unknown] cefdinir 300 mg capsule 300 mg PO BID #10 caps 07/28/22 [Rx Last Taken Unknown] ferrous gluconate 324 mg (38 mg iron) tablet 324 mg PO BID #60 tabs 07/28/22 [Rx Last Taken Unknown] hydrocodone-acetaminophen 5-325mg 5mg-325mg 1 tab PO Q6H PRN PRN Pain 4 days #16 TABLETS 08/25/22 [Rx Last Taken Unknown] Allergy/AdvReac Type Severity Reaction Status Date / Time azithromycin Allergy Hives Verified 06/20/23 17:46 erythromycin base Allergy Hives Verified 06/20/23 17:46 codeine AdvReac Upset Verified 06/20/23 17:46 Stomach Surgical History no surgical history no surgical history Social History household members: spouse Smoking Status: Never smoker substance use type: does not use ROS ROS ED Constitutional Constitutional ED: Denies chills or fever(s) Eyes Eyes: Denies blurry vision or change in vision ENT ENT ED: Reports sore throat; Denies rhinorrhea Cardiovascular Cardiovascular: Reports chest pain; Denies palpitations Respiratory/Chest Respiratory/Chest: Reports cough; Denies dyspnea Gastrointestinal Gastrointestinal: Denies nausea or vomiting Genitourinary Genitourinary ED: Denies dysuria or hematuria Musculoskeletal Musculoskeletal: Reports neck pain; Denies back pain Integumentary Denies abscess or rash Neurologic Neurologic: Denies headache(s) or weakness Allergic/Immunologic Allergic/Immunologic ED: Denies mouth swelling or urticaria EXAM Physical Exam Const Vital Signs: 06/20/23 17:46 06/20/23 17:56 06/20/23 17:59 Temperature 98 F Temperature Source Temporal Pulse Rate 47 L 52 L Respiratory Rate 18 16 Respiratory Effort Normal Blood Pressure 157/78 H Blood Pressure Mean 104 Pulse Ox 96 94 Oxygen Delivery Method Room Air Room Air 06/20/23 18:45 06/20/23 18:45 06/20/23 19:36 Temperature Temperature Source Pulse Rate 52 L 51 L Respiratory Rate 16 18 Respiratory Effort Blood Pressure 146/79 H 159/81 H Blood Pressure Mean 101 107 Pulse Ox 90 90 94 Oxygen Delivery Method Room Air Room Air Room Air Positive well nourished and well developed General Appearance ED: well developed and NAD HEENT Reports moist mucous membranes Neck supple and no JVD Resp normal respiratory effort and clear to auscultation bilaterally Cardio regular rhythm Rate: bradycardia GI soft to palpation, non-tender and non-distended Neuro oriented x3, CN's II-XII intact bilaterally and no sensory deficits noted Sensorium / Orientation: awake and alert Motor Exam: strength 5/5 throughout Psych mental status grossly normal Heart Score History: Slightly/Non-Suspicious ECG: Nonspecific Repolarization Age: >/= 65 years Risk Factors: No Risk Factors Troponin: >1 - <3 Normal Limit Score: 4 MDM MDM Lab Data Attestation: I reviewed the patient's lab results. Lab results narrative: CBC was reviewed and was within normal limits. PT with INR and PTT were reviewed and were within normal limits. Basic metabolic profile was reviewed and was within normal limits. High-sensitivity troponin was reviewed and was slightly elevated at 106. Labs: Laboratory Results - last 24 hr 06/20/23 17:59 WBC 10.0 RBC 4.11 L Hgb 12.4 Hct 39.1 MCV 95.1 MCH 30.2 MCHC 31.7 L RDW Std Deviation 45.8 H RDW Coeff of Juanito 13.2 Plt Count 394 MPV 11.1 Immature Gran % (Auto) 0.300 Neut % (Auto) 47.2 Lymph % (Auto) 38.7 [place] % (Auto) 11.0 H Eos % (Auto) 1.9 Baso % (Auto) 0.9 Absolute Neuts (auto) 4.7 Absolute Lymphs (auto) 3.88 Nucleated RBC % 0 PT 13.0 INR 1.0 APTT 23.7 L Sodium 139 Potassium 3.7 Chloride 104 Carbon Dioxide 32.0 Anion Gap 3 L BUN 10 Creatinine 0.91 Estim Creat Clear Calc 35.97 Est GFR (MDRD) Af Amer 77 Est GFR (MDRD) Non-Af 63 BUN/Creatinine Ratio 11.0 Glucose 94 Calcium 9.5 Troponin I High Sens 106 H Radiography Diagnostic Testing: Clinical Impression(s) from Imaging Studies Chest X-Ray 06/20/23 18:50 IMPRESSION: Possible mild right upper lobe infiltrate/scarring Electronically Signed: Nicola Becerra DO at 19:13 EST Reading Location ID and State: [address] [place] [address] Tel [phone], Service support , Portable chest x-ray was obtained. There is 1 view. On my independent interpretation, there is a questionable right upper lobe infiltrate or scarring. There is no acute process noted. The bony thorax is normal. There is no cardiomegaly noted. EKG Initial EKG: Attestation: I personally reviewed and interpreted this EKG as follows: Interpretation: Sinus Bradycardia (51) and Non-Specific ST Changes Comments: EKG was obtained. On my independent interpretation, it showed a sinus bradycardia with a rate of 51. MT interval, QRS interval, and QTc intervals were all normal. [place] was normal. There are no acute ST or T wave changes. Prior EKG tracings: available for review Prior: Unchanged (07/28/2022) Treatment and Re-Evaluation :: Patient was given aspirin here. Patient was advised of her findings. Patient has a HEART score of 4. Because of this and the elevated troponin, I recommended admission to the hospital. 2-hour repeat high-sensitivity troponin will be obtained. Case will be discussed with the hospitalist. Patient and spouse understand and are agreeable with the plan. All questions were answered. Discharge Plan Triage Chief Complaint: Chest Pain ED Provider: Milan Ortiz Dx/Rx/DC Orders Clinical Impression: Elevated troponin, Chest pain Prescriptions: No Action levofloxacin 500 mg tablet 500 mg PO DAILY Qty: 7 0RF levofloxacin 500 mg tablet 500 mg PO DAILY Qty: 7 0RF cefdinir 300 mg capsule 300 mg PO BID Qty: 10 0RF ferrous gluconate 324 mg (38 mg iron) tablet 324 mg PO BID Qty: 60 0RF hydrocodone-acetaminophen [hydrocodone-acetaminophen] 5-325 mg tablet 1 tab PO Q6H PRN PRN (Reason: Pain) 4 Days Qty: 16 0RF Primary Care Provider: Dewayne Rios Referrals: Dewayne Rios MD [Primary Care Provider] - Disposition Disposition: Acute Care Hospital [facility]
--- NOTE | 2023-06-20 20:25 | HP.PCM.HOS_ITS ---
HPI - General General Date of Admission: 06/20/23 Date of Service: 06/20/23 Chief Complaint: Chest Pain HPI Narrative JAIMIE TORRES, is a 83 F with a past medical history of bronchitis, history of polymyositis, cholecystectomy and remote history of Right rib fracture who presents to [facility] ER complaining of chest pain. Ms. Torres reports her symptoms began approximately six days prior to admission with chest pain that was intermittent, [id number], sharp, radiating over her Left chest up into her Left jaw and then down into her Left shoulder and arm with movement of her Left arm making the pain worse and she states the pain was slightly improved after Tums and Tylenol. She does admit to a cough productive of yellow sputum but she denies associated fever, chills, SOB, nausea, vomiting, dizziness, lightheadedness, recent travel, recent immobilization or history of VTE. She also denies cardiac risk factors with no personal of known family history of CAD. In the ER she was noted to have an elevated troponin of 106 ng/mL present on admission with a nonspecific EKG consistent with a suspected NSTEMI and she was then admitted to the PCU for ongoing care for a stay that is expected to be greater than 48 hours. [facility] Medical History Bronchitis FHx: cholecystectomy Right rib fracture Home Medications cefdinir 300 mg capsule 300 mg PO BID #10 caps 07/28/22 [Rx Last Taken Unknown] benzonatate 100 mg capsule 100 mg PO TID PRN cough 06/20/23 [History Last Taken Unknown] escitalopram oxalate 20 mg tablet 20 mg PO DAILY 06/20/23 [History Last Taken Unknown] omeprazole 40 mg capsule,delayed release 40 mg PO DAILY 06/20/23 [History Last Taken Unknown] prednisone 10 mg tablet 10 mg PO DAILY 06/20/23 [History Last Taken Unknown] Allergy/AdvReac Type Severity Reaction Status Date / Time azithromycin Allergy Hives Verified 06/20/23 17:46 erythromycin base Allergy Hives Verified 06/20/23 17:46 codeine AdvReac Upset Verified 06/20/23 17:46 Stomach Surgical History no surgical history Social History household members: spouse Smoking Status: Former smoker substance use type: does not use Vital Signs Vital Signs Vital Signs: 06/20/23 17:46 06/20/23 17:56 06/20/23 17:59 Temperature 98 F Temperature Source Temporal Pulse Rate 47 L 52 L Respiratory Rate 18 16 Respiratory Effort Normal Blood Pressure 157/78 H Blood Pressure Mean 104 Pulse Ox 96 94 Oxygen Delivery Method Room Air Room Air 06/20/23 18:45 06/20/23 18:45 06/20/23 19:36 Temperature Temperature Source Pulse Rate 52 L 51 L Respiratory Rate 16 18 Respiratory Effort Blood Pressure 146/79 H 159/81 H Blood Pressure Mean 101 107 Pulse Ox 90 90 94 Oxygen Delivery Method Room Air Room Air Room Air 06/20/23 20:00 Temperature Temperature Source Pulse Rate 55 L Respiratory Rate 16 Respiratory Effort Blood Pressure 163/139 H Blood Pressure Mean 147 Pulse Ox 97 Oxygen Delivery Method Room Air Weight Weight: 143 lb 6.4 oz Body Mass Index (BMI) 27.1 Physical Exam Const alert, oriented x3, no apparent distress, average body habitus, healthy appearing and well nourished General Appearance: cooperative HEENT normocephalic, head/scalp atraumatic, hearing grossly normal bilaterally, moist oral mucous membranes and oropharynx normal Eyes PERRL, EOMs intact bilaterally and conjunctivae normal Neck no lymphadenopathy, supple, no JVD and no carotid bruits Resp normal respiratory effort, no retractions, no use of accessory muscles and clear to auscultation bilaterally Cardio regular rate and regular rhythm GI normal to inspection, nondistended, normoactive bowel sounds, soft to palpation, non-tender and non-distended Extremity normal to inspection, full ROM and no clubbing, cyanosis or edema Skin Skin Narrative: Patient has no evidence of rash at this time. Neuro oriented x3, CN's II-XII intact bilaterally, moves all extremities and no focal motor deficits Sensorium / Orientation: awake, alert, oriented to person, oriented to place and oriented to time Speech: speech normal Motor Exam: strength 5/5 throughout Psych affect normal Results Medical Records Data Attestation: I reviewed the patient's medical records Lab / Micro Data Attestation: I reviewed the patient's lab results. 06/21/23 05:50 06/20/23 17:59 Labs: Laboratory Results - last 24 hr 06/20/23 17:59: WBC 10.0, RBC 4.11 L, Hgb 12.4, Hct 39.1, MCV 95.1, MCH 30.2, MCHC 31.7 L, RDW Std Deviation 45.8 H, RDW Coeff of Juanito 13.2, Plt Count 394, MPV 11.1, Immature Gran % (Auto) 0.300, Neut % (Auto) 47.2, Lymph % (Auto) 38.7, [place] % (Auto) 11.0 H, Eos % (Auto) 1.9, Baso % (Auto) 0.9, Absolute Neuts (auto) 4.7, Absolute Lymphs (auto) 3.88, Nucleated RBC % 0, PT 13.0, INR 1.0, APTT 23.7 L, Sodium 139, Potassium 3.7, Chloride 104, Carbon Dioxide 32.0, Anion Gap 3 L, BUN 10, Creatinine 0.91, Estim Creat Clear Calc 35.97, Est GFR (MDRD) Af Amer 77, Est GFR (MDRD) Non-Af 63, BUN/Creatinine Ratio 11.0, Glucose 94, Calcium 9.5, Troponin I High Sens 106 H [facility] Radiology Impression Chest X-Ray 06/20/23 18:50 IMPRESSION: Possible mild right upper lobe infiltrate/scarring Electronically Signed: Nicola Becerra DO at 19:13 EST Reading Location ID and State: [address] [place] [address] Tel [phone], Service support , Assessment & Plan Assessment/Plan (1) Elevated troponin: (2) Chest pain: QUALIFIERS: Chest pain type: chest pain due to myocardial ischemia Ischemic chest pain type: unstable angina pectoris Qualified Code(s): I20.0 - Unstable angina PLAN: Plan 1. Elevated troponin of 106 ng/mL present on admission suspicious for NSTEMI - Admit to PCU. Continue ECASA and start Plavix, statin, Lopressor and full-dose Lovenox. Serialize troponin. Check echocardiogram to evaluate LVEF. Finally, we will consult cardiology to see this patient on-rounds in the AM for further recommendations regarding LHC with help appreciated in advance. 2. Recently diagnosed Acute Bronchitis with cough productive of yellow sputum complicating #1 - Continue Cefdinir as previous plus prn Mucinex. 3. Polymyositis - Stable at this time. 4. DVT prophylaxis - Patient on full-dose Lovenox for #1. Total time: Approximately 40 minutes. Charges/Coding Visit Charges Inpatient E&M: 75471 Init Hosp L1
[2023-06-20 20:28] LABS: Troponin-I HS 94 pg/mL (3.0-54.0)
--- NOTE | 2023-06-20 22:13 | ECHOD_ITS ---
Reason For Study: NSTEMI Procedure This was a 2D Doppler, Color Flow transthoracic echocardiogram. Exam performed portable in patient room. Left Ventricle Normal LV size. Left ventricular systolic function is normal. The estimated ejection fraction is 60 %. Diastolic function is indeterminate. No regional wall motion abnormalities noted. Right Ventricle Normal RV size. Normal systolic function. Atria The left atrium is mildly enlarged. Normal right atrium. Mitral Valve The mitral valve is structurally normal. No prolapse or stenosis seen. Mild-Moderate (1-2+) mitral valve insufficiency. Tricuspid Valve Normal tricuspid valve. Mild (1+) tricuspid valve insufficiency. Right ventricular systolic pressure estimated to be 55 mmHg. Aortic Valve Trisinus/trileaflet aortic valve. Moderate focal aortic valve calcification. Mild to moderate aortic stenosis. Peak aortic valve gradient 42 mmHg. Mean aortic valve gradient 25 mmHg. Trivial aortic valve insufficiency. Pulmonic Valve Normal pulmonic valve. Trivial pulmonic valve insufficiency. Great Vessels Normal aortic root. Pericardium/Pleural No pericardial effusion. MMode/2D Measurements & Calculations LVIDd: 4.3 cm IVSd: 1.0 cm LVOT diam: 2.0 cm LVIDs: 3.3 cm LVPWd: 0.97 cm LVOT area: 3.2 cm2 RVDd: 3.5 cm FS: 23.1 % Ao root diam: 3.5 cm LAV(MOD-bp): 70.0 ml LVAd ap4: 21.1 cm2 LAV(MOD-bp) Indexed: 43.1 ml/m2 LVLd ap4: 7.1 cm LAV(MOD-sp2): 72.1 ml EDV(MOD-sp4): 51.2 ml LAV(MOD-sp4): 65.7 ml EDV(sp4-el): 53.4 ml LVAs ap4: 10.7 cm2 LVLs ap4: 6.0 cm ESV(MOD-sp4): 15.8 ml ESV(sp4-el): 16.3 ml EF(MOD-sp4): 69.1 % EF(sp4-el): 69.4 % LVAd ap2: 24.6 cm2 SV(MOD-sp4): 35.4 ml SV(MOD-sp2): 40.0 ml LVLd ap2: 7.4 cm EDV(MOD-sp2): 68.2 ml EDV(sp2-el): 69.5 ml LVAs ap2: 14.6 cm2 LVLs ap2: 6.5 cm ESV(MOD-sp2): 28.2 ml ESV(sp2-el): 27.6 ml EF(MOD-sp2): 58.6 % SV(sp4-el): 37.1 ml LA dimension(2D): 4.7 cm LA A4 area: 21.5 cm2 RA A4 area: 13.6 cm2 TAPSE: 1.9 cm Time Measurements MV dec time: 0.15 sec Doppler Measurements & Calculations MV E max ever: 99.3 cm/sec Lat Peak E' Ever: 10.0 cm/sec Med Peak E' Ever: 3.9 cm/sec MV A max ever: 81.8 cm/sec E/E' lat: 9.9 E/E' med: 25.8 MV E/A: 1.2 Ao V2 max: 322.1 cm/sec LV V1 max: 99.1 cm/sec MV dec slope: 662.4 cm/sec2 Ao max P.6 mmHg LV V1 max P.9 mmHg Ao V2 mean: 239.1 cm/sec LV V1 mean P.4 mmHg Ao mean P.2 mmHg LV V1 mean: 75.5 cm/sec Ao V2 VTI: 72.8 cm LV V1 VTI: 23.6 cm AV (velocity ratio): 0.32 SATISH(I,D): 1.0 cm2 SATISH(V,D): 0.99 cm2 SV(LVOT): 76.0 ml PA V2 max: 87.3 cm/sec TR max ever: 343.2 cm/sec PA max PG (full): 1.2 mmHg TR max P.1 mmHg ECHO/Echo Complete Interpretation Summary Diastolic function is indeterminate. The estimated ejection fraction is 60 %. The left atrium is mildly enlarged. Mild-Moderate (1-2+) mitral valve insufficiency. Right ventricular systolic pressure estimated to be 55 mmHg. Mild to moderate aortic stenosis. Mean aortic valve gradient 25 mmHg. Ordering Physician: Luis Velez Referring Physician: Dewayne Rios M.D. Performed By: Leonora Bowie RDCS
[2023-06-20] MEDS: Cefdinir 300 MG Capsule PO (22:46)
[2023-06-20] MEDS: Enoxaparin 100 MG/ML Syringe 70 MG SC (22:46)
[2023-06-20] MEDS: Metoprolol Tartrate 50 MG Tablet PO (22:46)
[2023-06-20] MEDS: Clopidogrel Bisulfate 75 MG Tablet PO (22:53)
[2023-06-20] MEDS: Nitroglycerin Oint 1 INCH PACKET TD (23:56)
[2023-06-21] VITALS (19 sets, daily range): BP systolic 79–156; BP diastolic 51–103; PULSE 43–72; RESP 14–19; TEMP 36.1–36.7; O2SAT 85–98
[2023-06-21 00:37] LABS: Troponin-I HS 102 pg/mL (3.0-54.0)
--- NOTE | 2023-06-21 05:01 | EKG12_ITS ---
Test Reason : Blood Pressure : / mmHG Vent. Rate : 050 BPM Atrial Rate : 050 BPM P-R Int : 174 ms QRS Dur : 070 ms QT Int : 536 ms P-R-T Axes : 036 008 -14 degrees QTc Int : [address] & T wave abnormality, consider inferior ischemia Prolonged QT Abnormal ECG When compared with ECG of 21-JUN-2023 04:37, MANUAL COMPARISON REQUIRED, DATA IS UNCONFIRMED Confirmed by LIVAN AUGUSTE, HATTIE ([id number]), fashion editor DEMETRIA GONZALEZ ([id number]) on 06/26/2023 12:20:02 PM Referred By: BARTLETT Confirmed By:HATTIE LICONA MD
[2023-06-21] MEDS: Morphine 2 MG/ML Syringe IV (05:25)
[2023-06-21] MEDS: 0.9% Saline Lock 10 ML Syringe IV ×2 (05:26→20:49)
--- NOTE | 2023-06-21 06:18 | NURSING ---
rapid response called room 127
[2023-06-21] MEDS: Ondansetron 4 MG/2 ML Vial IV (06:27)
[2023-06-21 06:29] LABS: Hematocrit 37.3 % (37-47); Hemoglobin 11.8 g/dL (12.0-15.0); Mean Corp Hgb Conc 31.6 g/dL (32-36); Mean Corpuscular Hgb 30.4 pg (27.0-32.0); Mean Corpuscular Volume 96.1 fL (81-99); Mean Platelet Vol. 10.9 fl (6.2-12.0); Platelet Count 354 K/mm3 (150-450); RBC Distribution Width CV 13.1 % (11.6-14.6); RBC Distribution Width SD 45.7 fl (35.1-43.9); Red Blood Count 3.88 M/mm3 (4.2-5.4); White Blood Count 10.6 K/mm3 (4.4-11.0)
[2023-06-21] MEDS: 0.9% Normal Saline (1000mL) 1,000 ML 999 ML IV (06:30)
--- NOTE | 2023-06-21 06:46 | NURSING ---
HISTORY TUTOR called for room 127, pt was given 2mg morphine 1 hour ago. Pt was resting in bed asleep when pt jolted up c/o of mid posterior back pain. diaphoretic, vomiting and pale. BP 79/51 and pt flaco 39-40. This RN made the decision to call a rapid response. ICU staff and physician in room. Zofran given, ekg obtained that showed inferior wall changes that was sent to cardiology. 1 liter saline bolus was given to pt. PT improved, less pain in back and color was back for pt. Rapid response completed. Will continue to monitor.
[2023-06-21 06:54] LABS: Bedside Glucose 106 mg/dL (74-106)
[2023-06-21] MEDS: Aspirin E.C. 81 MG Tablet PO (07:13)
[2023-06-21] MEDS: Clopidogrel Bisulfate 75 MG Tablet PO (07:13)
[2023-06-21 07:26] LABS: ALB/GLOB Ratio 0.9 RATIO (0.9-2.4); AST(SGOT) 328 U/L (15-37); Alanine Aminotransfer ALT/SGPT 175 U/L (13-56); Albumin, Serum 3.3 g/dL (3.2-5.0); Alkaline Phosphatase 90 U/L (45-117); Anion Gap 3 (5-15); BUN 11 mg/dL (7-18); BUN/Creat Ratio 13.3 RATIO (10-20); Calcium,Total 8.9 mg/dL (8.5-10.1); Chloride 106 mmol/L (98-107); Cholesterol 165 mg/dL (200); Creatinine, Serum 0.83 mg/dL (0.55-1.02); EST Glomerular Filtration Rate 70 mL/min (>60); Est Glom Filt Rate - Afr Amer 85 mL/min (>60); Estimated Creatinine Clearance 39.43 ml/min; Globulin 3.5 g/dL (2.2-4.2); Glucose 100 mg/dL (74-106); High Density Lipoprotein 91 mg/dL; Potassium 3.9 mmol/L (3.5-5.1); Protein, Total 6.8 g/dL (6.4-8.2); Sodium Level 139 mmol/L (136-145); Thyroid Stim Hormone (TSH) 3.48 uIU/mL (0.358-3.74); Triglycerides 96 mg/dL; Very Low Density Lipoprotein 19 mg/dL (5-40)
--- NOTE | 2023-06-21 08:44 | PCM.PN.HOSP ---
Reason for Visit Reason for Visit: Diagnoses Unstable angina (06/20/23) Chest pain, unspecified (06/20/23) Other specified abnormal findings of blood chemistry (06/20/23) Objective Data Objective Data Vital Signs: Vital Signs Temp Pulse Resp BP Pulse Ox O2 Del Method O2 Flow Rate 97.6 F L 72 16 117/97 H 97 Room Air 2 06/21/23 06:30 06/21/23 08:02 06/21/23 08:02 06/21/23 08:02 06/21/23 08:02 06/21/23 08:17 06/21/23 06:30 Oxygen Flow Rate (L/min) 2 Oxygen Delivery Method Room Air Weight: 140 lb 3.424 oz Body Mass Index (BMI) 26.4 Lab / Micro Data 06/21/23 05:50 06/21/23 05:50 Labs: Laboratory Results - last 24 hr 06/20/23 17:59: WBC 10.0, RBC 4.11 L, Hgb 12.4, Hct 39.1, MCV 95.1, MCH 30.2, MCHC 31.7 L, RDW Std Deviation 45.8 H, RDW Coeff of Juanito 13.2, Plt Count 394, MPV 11.1, Immature Gran % (Auto) 0.300, Neut % (Auto) 47.2, Lymph % (Auto) 38.7, Dundy % (Auto) 11.0 H, Eos % (Auto) 1.9, Baso % (Auto) 0.9, Absolute Neuts (auto) 4.7, Absolute Lymphs (auto) 3.88, Nucleated RBC % 0, PT 13.0, INR 1.0, APTT 23.7 L, Sodium 139, Potassium 3.7, Chloride 104, Carbon Dioxide 32.0, Anion Gap 3 L, BUN 10, Creatinine 0.91, Estim Creat Clear Calc 35.97, Est GFR (MDRD) Af Amer 77, Est GFR (MDRD) Non-Af 63, BUN/Creatinine Ratio 11.0, Glucose 94, Calcium 9.5, Troponin I High Sens 106 H 06/20/23 20:05: Troponin I High Sens 94 H 06/20/23 23:56: Troponin I High Sens 102 H 06/21/23 05:50: WBC 10.6, RBC 3.88 L, Hgb 11.8 L, Hct 37.3, MCV 96.1, MCH 30.4, MCHC 31.6 L, RDW Std Deviation 45.7 H, RDW Coeff of Juanito 13.1, Plt Count 354, MPV 10.9, Sodium 139, Potassium 3.9, Chloride 106, Carbon Dioxide 30.0, Anion Gap 3 L, BUN 11, Creatinine 0.83, Estim Creat Clear Calc 39.43, Est GFR (MDRD) Af Amer 85, Est GFR (MDRD) Non-Af 70, BUN/Creatinine Ratio 13.3, Glucose 100, Calcium 8.9, Total Bilirubin 0.70, AST 328 H, ALT 175 H, Alkaline Phosphatase 90, Total Protein 6.8, Albumin 3.3, Globulin 3.5, Albumin/Globulin Ratio 0.9, Triglycerides 96, Cholesterol 165, LDL Cholesterol 55, VLDL Cholesterol 19, HDL Cholesterol 91, TSH 3.48 06/21/23 06:21: POC Glucose 106 Radiography Diagnostic Testing: Radiology Impression Chest X-Ray 06/20/23 18:50 IMPRESSION: Possible mild right upper lobe infiltrate/scarring Electronically Signed: Nicola Becerra DO at 19:13 EST Reading Location ID and State: [facility] / [place] Tel [phone], Service support , Physical Exam Narrative Seen and examined. No chest pain or pressure now. Patient had rapid response in the morning due to nausea and vomiting and then hypotension bradycardia most likely vasovagal effect. Patient recovered well. Physical exam: General: Alert, Oriented x3, Cooperative HEENT: Atraumatic, PERRLA, EOMI, Normocephalic Oral: Oral mucosa moist. No Gingival or Mucosal Lesions/ Ulcerations Neck: Supple, No JVD, Negative Carotid Bruits Lungs: Air entry diminished in bilateral lung bases. No crepitation/rhonchi Cardiovascular: Regular rate, Regular Rhythm, Normal S1, Normal S2,Systolic murmur over right second ICS, LLSB, cardiac apex with radiation to left axilla, plus MR. Abdomen: Bowel Sounds Present, Soft, Non Tender, Non-Distended : Chronic urinary incontinence. No renal angle tenderness. No suprapubic tenderness. Extremities: No edema, Capillary Refill hypotension and bradycardia 3 Seconds Skin: No rashes, No breakdown Musculoskeletal: No Tenderness to Palpation of Joints or Extremities Neurological: Cranial nerves II-XII grossly intact, DTR 2+/4. No acute focal neurological deficit. Psych/Mental Status: Normal Affect, Appropriate. Assessment & Plan Assessment/Plan (1) Elevated troponin: (2) Chest pain: QUALIFIERS: Chest pain type: chest pain due to myocardial ischemia Ischemic chest pain type: unstable angina pectoris Qualified Code(s): I20.0 - Unstable angina PLAN: Plan 83-year-old female is being admitted for chest pain that is started 6 days ago, waxing and waning, sharp in quality over left chest with radiation to left arm and jaw with worsening from movement of left arm but improvement with Tylenol and Tums. Patient also has cough with yellow sputum. No fever or chills. No acute shortness of breath lightheadedness or dizziness. No nausea or vomiting.She states her primary pain 1 on the left upper extremity and then it moved to the chest. She, Usually also walks 5 miles without any chest discomfort or shortness of breath. 1. Elevated troponin of 106 ng/mL present on admission suspicious for NSTEMI -the patient was admitted to PCU on monitored bed and then start on baby aspirin, Plavix, statin, Lopressor and full-dose Lovenox. Glue Machine Operator was consulted. Her serial troponins 106, 94 and 102, plateau without significant delta change. Twelve-lead EKG individually reviewed and shows sinus bradycardia 50/min, QTc 488 ms, mildly prolonged. LVH. Old inferior infarct. No significant ST-T changes. Patient was evaluated by agricultural sciences professor initially thought to do stress test but stress test not possible due to long weekend therefore decided for cardiac cath. The patient had cardiac cath which showed calcified 20% proximal LAD, RCA proximal 40%, mid 50% otherwise normal left main and circumflex artery. Medical therapy recommended. 2D echo EF 60%, LA mildly enlarged mild to moderate MR, RVSP 55 mmHg, mild to moderate aortic stenosis with mean AV gradient 25 mmHg. 2. 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 Blood pressure dropped down to 79/51 but now recovered 170/97.She also has bradycardia heart rate in 50s and once dropped to 43. Patient is back to baseline. She has history of hiatus hernia and GERD and follows consumer relations specialist in [place]. She wants to change it to consumer relations specialist in [place], talked about Dr. Tubbs. 2. Recently diagnosed Acute Bronchitis with cough productive of yellow sputum complicating #1 - Continue Cefdinir as previous plus prn Mucinex. 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 Stone. 3. Polymyositis - Stable at this time. Elevated transaminases: AST 328, ALT 175. Alkaline phosphatase, total bilirubin and albumin in normal range. Patient's previous liver chemistry in June 2022 was in normal range except low albumin 3.0. 4. DVT prophylaxis - Patient on full-dose Lovenox for #1. Laboratory Results 06/20/23 17:59: WBC 10.0, RBC 4.11 L, Hgb 12.4, Hct 39.1, MCV 95.1, MCH 30.2, MCHC 31.7 L, RDW Std Deviation 45.8 H, RDW Coeff of Juanito 13.2, Plt Count 394, MPV 11.1, Immature Gran % (Auto) 0.300, Neut % (Auto) 47.2, Lymph % (Auto) 38.7, Dundy % (Auto) 11.0 H, Eos % (Auto) 1.9, Baso % (Auto) 0.9, Absolute Neuts (auto) 4.7, Absolute Lymphs (auto) 3.88, Nucleated RBC % 0, PT 13.0, INR 1.0, APTT 23.7 L, Sodium 139, Potassium 3.7, Chloride 104, Carbon Dioxide 32.0, Anion Gap 3 L, BUN 10, Creatinine 0.91, Estim Creat Clear Calc 35.97, Est GFR (MDRD) Af Amer 77, Est GFR (MDRD) Non-Af 63, BUN/Creatinine Ratio 11.0, Glucose 94, Calcium 9.5, Troponin I High Sens 106 H 06/20/23 20:05: Troponin I High Sens 94 H 06/20/23 23:56: Troponin I High Sens 102 H 06/21/23 05:50: WBC 10.6, RBC 3.88 L, Hgb 11.8 L, Hct 37.3, MCV 96.1, MCH 30.4, MCHC 31.6 L, RDW Std Deviation 45.7 H, RDW Coeff of Juanito 13.1, Plt Count 354, MPV 10.9, Sodium 139, Potassium 3.9, Chloride 106, Carbon Dioxide 30.0, Anion Gap 3 L, BUN 11, Creatinine 0.83, Estim Creat Clear Calc 39.43, Est GFR (MDRD) Af Amer 85, Est GFR (MDRD) Non-Af 70, BUN/Creatinine Ratio 13.3, Glucose 100, Calcium 8.9, Total Bilirubin 0.70, AST 328 H, ALT 175 H, Alkaline Phosphatase 90, Total Protein 6.8, Albumin 3.3, Globulin 3.5, Albumin/Globulin Ratio 0.9, Triglycerides 96, Cholesterol 165, LDL Cholesterol 55, VLDL Cholesterol 19, HDL Cholesterol 91, TSH 3.48 06/21/23 06:21: POC Glucose 106 Charges/Coding Visit Charges Inpatient E&M: 68206 Subs Hosp L2
[2023-06-21 09:33] LABS: CPK Total, Creatine Kinase 49 U/L (26-192)
--- NOTE | 2023-06-21 11:15 | CASEMGMT ---
RN CM Face to Face with patient for initial transition planning/care coordination assessment. RN CM introduced self and role at [facility]. Patient lying in bed, alert and oriented, at bedside. Patient willing to participate in assessment and is able to answer all questions appropriately. Care providers, pharmacy, and demographics verified. Patient wishes to discharge home, denies need for home health at this time. Patient states she has no further needs or concerns at this time. CM to follow for discharge planning needs that may arise. PCP: Gabriel Specialists: Efrain turf grower; TEX Brown Preferred Pharmacy: [facility] Insurance: [employer] [facility] Prescription Benefit: yes Living Will/HPOA: yes, Mode Britt LNOK: , granddaughter Living Arrangements: Patient lives with and granddaughter in a [place], 3 steps and railing to enter the home. Transportation: , granddaughter DME/HHC: Patient has cane, walker, and grab bars at home. No previous HHC or SNF. Disposition Plan: Jessie FLORES, RN, CM
--- NOTE | 2023-06-21 13:16 | US_ITS ---
STUDY: ABDOMINAL ULTRASOUND - RIGHT UPPER QUADRANT REASON FOR VISIT: Female, 83 years old elevated LFT TECHNIQUE: Ultrasound evaluation of the right upper quadrant was performed with real-time and static grubbs-scale imaging. TECHNICAL QUALITY: Adequate. COMPARISON: None. FINDINGS: Liver: The liver measures 16 cm. There is increased echogenicity of the liver. The bile ducts are within normal limits. There is hepatic color flow. The direction of portal flow is hepatopetal. There is no demonstrated mass lesion. Gallbladder: The patient is status post cholecystectomy. Common Bile Duct (C.B.D.): The common bile duct measures 9.5 mm. Pancreas: There is increased echogenicity of the pancreas. There is no demonstrated pancreatic mass or cyst. Right Kidney: Normal size of the right kidney. There is no demonstrated renal mass or cyst. There is no right hydronephrosis. US/Abdomen Limited IMPRESSION: 1. No intrahepatic bile duct dilation. 2. Dilated common duct likely related to prior cholecystectomy. Electronically Signed: Nolan Sarmiento MD (Brooks) at 18:04 EST Reading Location ID and State: [facility] / [place] , Service support ,
--- NOTE | 2023-06-21 13:21 | CON.PCM.CA_ITS ---
Assessment & Plan Assessment/Plan (1) Unstable angina: PLAN: Patient has been having intermittent chest discomfort radiating to the left arm and jaw. She also has nonspecific ST changes. Suspect unstable angina pectoris. Recommend cardiac catheterization with coronary angiography and possible revascularization. Risks benefits and alternatives explained. She understand these and wishes to proceed. Further recommendations to follow results of coronary angiography. (2) Elevated troponin: PLAN: No significant upward or downward trend. Likely unrelated to her angina pectoris. (3) Polymyositis: PLAN: As per internal medicine/rheumatology. (4) Elevated liver enzymes: PLAN: Follow as per internal medicine. HPI Consult Data Date of Consult: 06/21/23 HPI Narrative Reason for Consultation: Unstable angina HPI Narrative: This patient has past medical history significant for polymyositis. She presented to the hospital with complaints of intermittent left-sided chest discomfort. According to her, this radiates into the left shoulder and arm and to the left side of her jaw. Per her, the discomfort lasts anywhere from 20 to 40 minutes. Relieved on its own. She is not aware of any precipitating or relieving factors. Exertion does not exacerbate the discomfort. Per her, she feels slightly short of breath with it. No past medical history for coronary artery disease. Denies orthopnea or PND. [facility] Medical History Bronchitis FHx: cholecystectomy Right rib fracture Home Medications cefdinir 300 mg capsule 300 mg PO BID #10 caps 07/28/22 [Rx Last Taken Unknown] benzonatate 100 mg capsule 100 mg PO TID PRN cough 06/20/23 [History Last Taken Unknown] escitalopram oxalate 20 mg tablet 20 mg PO DAILY 06/20/23 [History Last Taken Unknown] omeprazole 40 mg capsule,delayed release 40 mg PO DAILY 06/20/23 [History Last Taken Unknown] prednisone 10 mg tablet 10 mg PO DAILY 06/20/23 [History Last Taken Unknown] Allergy/AdvReac Type Severity Reaction Status Date / Time azithromycin Allergy Hives Verified 06/20/23 17:46 erythromycin base Allergy Hives Verified 06/20/23 17:46 codeine AdvReac Upset Verified 06/20/23 17:46 Stomach Surgical History no surgical history Social History household members: spouse Smoking Status: Former smoker substance use type: does not use Physical Exam Narrative Comfortable. No apparent distress. Heart sounds 1 and 2 are noted. 3/6 systolic murmur at apex and base. Chest examination shows decreased breath sounds on the right side. No crepitations or rhonchi. Alert oriented x 3. Moving all 4 extremities. No ankle edema noted. Risk Stratification Risk Stratification Applicable: No Objective Data Vital Signs: Vital Signs Temp Pulse Resp BP Pulse Ox O2 Del Method O2 Flow Rate 97 F L 58 L 16 142/77 H 94 Room Air 2 06/21/23 10:30 06/21/23 10:30 06/21/23 10:30 06/21/23 10:30 06/21/23 10:30 06/21/23 10:30 06/21/23 07:34 Oxygen Flow Rate (L/min) 2 Oxygen Delivery Method Room Air Weight: 140 lb 3.424 oz Body Mass Index (BMI) 26.4 Intake & Output: Intake and Output for Last 24 Hours 06/19/23 06/20/23 06/21/23 23:59 23:59 23:59 Intake Total 1000 / 1000 Balance 1000 / 1000 Lab / Micro Data Attestation: I reviewed the patient's lab results. 06/21/23 05:50 06/21/23 05:50 Labs: Laboratory Results - last 24 hr 06/20/23 17:59: WBC 10.0, RBC 4.11 L, Hgb 12.4, Hct 39.1, MCV 95.1, MCH 30.2, MCHC 31.7 L, RDW Std Deviation 45.8 H, RDW Coeff of Juanito 13.2, Plt Count 394, MPV 11.1, Immature Gran % (Auto) 0.300, Neut % (Auto) 47.2, Lymph % (Auto) 38.7, Dougherty % (Auto) 11.0 H, Eos % (Auto) 1.9, Baso % (Auto) 0.9, Absolute Neuts (auto) 4.7, Absolute Lymphs (auto) 3.88, Nucleated RBC % 0, PT 13.0, INR 1.0, APTT 23.7 L, Sodium 139, Potassium 3.7, Chloride 104, Carbon Dioxide 32.0, Anion Gap 3 L, BUN 10, Creatinine 0.91, Estim Creat Clear Calc 35.97, Est GFR (MDRD) Af Amer 77, Est GFR (MDRD) Non-Af 63, BUN/Creatinine Ratio 11.0, Glucose 94, Calcium 9.5, Troponin I High Sens 106 H 06/20/23 20:05: Troponin I High Sens 94 H 06/20/23 23:56: Troponin I High Sens 102 H 06/21/23 05:50: WBC 10.6, RBC 3.88 L, Hgb 11.8 L, Hct 37.3, MCV 96.1, MCH 30.4, MCHC 31.6 L, RDW Std Deviation 45.7 H, RDW Coeff of Juanito 13.1, Plt Count 354, MPV 10.9, Sodium 139, Potassium 3.9, Chloride 106, Carbon Dioxide 30.0, Anion Gap 3 L, BUN 11, Creatinine 0.83, Estim Creat Clear Calc 39.43, Est GFR (MDRD) Af Amer 85, Est GFR (MDRD) Non-Af 70, BUN/Creatinine Ratio 13.3, Glucose 100, Calcium 8.9, Total Bilirubin 0.70, AST 328 H, ALT 175 H, Alkaline Phosphatase 90, Total Creatine Kinase 49, Total Protein 6.8, Albumin 3.3, Globulin 3.5, Albumin/Globulin Ratio 0.9, Triglycerides 96, Cholesterol 165, LDL Cholesterol 55, VLDL Cholesterol 19, HDL Cholesterol 91, TSH 3.48 06/21/23 06:21: POC Glucose 106 Rhythm Strip Rhythm Strip: Sinus Rhythm Cardiology Labs/Tests 06/20/23 17:59: WBC 10.0, RBC 4.11 L, Hgb 12.4, Hct 39.1, MCV 95.1, MCH 30.2, MCHC 31.7 L, Plt Count 394, MPV 11.1, Immature Gran % (Auto) 0.300, Neut % (Auto) 47.2, Lymph % (Auto) 38.7, Dougherty % (Auto) 11.0 H, Eos % (Auto) 1.9, Baso % (Auto) 0.9, Absolute Neuts (auto) 4.7, Nucleated RBC % 0, PT 13.0, INR 1.0, APTT 23.7 L, Sodium 139, Potassium 3.7, Chloride 104, Carbon Dioxide 32.0, Anion Gap 3 L, BUN 10, Creatinine 0.91, Est GFR (MDRD) Af Amer 77, Est GFR (MDRD) Non-Af 63, BUN/Creatinine Ratio 11.0, Glucose 94, Calcium 9.5 06/21/23 05:50: WBC 10.6, RBC 3.88 L, Hgb 11.8 L, Hct 37.3, MCV 96.1, MCH 30.4, MCHC 31.6 L, Plt Count 354, MPV 10.9, Sodium 139, Potassium 3.9, Chloride 106, Carbon Dioxide 30.0, Anion Gap 3 L, BUN 11, Creatinine 0.83, Est GFR (MDRD) Af Amer 85, Est GFR (MDRD) Non-Af 70, BUN/Creatinine Ratio 13.3, Glucose 100, Calcium 8.9, Total Bilirubin 0.70, Triglycerides 96, Cholesterol 165, LDL Cholesterol 55, VLDL Cholesterol 19, HDL Cholesterol 91 Rhythm: EKG: ECG shows sinus rhythm with nonspecific ST changes. ECHO: Stress Test: Cardiac Cath: PCI: CT Surgery: Holter monitor: EPS: PPM: CXR: Chest CT Scan: Radiography Diagnostic Testing: Radiology Impression Chest X-Ray 06/20/23 18:50 IMPRESSION: Possible mild right upper lobe infiltrate/scarring Electronically Signed: Nicola Becerra DO at 19:13 EST Reading Location ID and State: [facility] / [place] Tel [phone], Service support ,
--- NOTE | 2023-06-21 13:55 | NURSING ---
1009-Report called to Rodney in [employer]. Pt needs to speak with robotics testing technician, consent not signed.
--- NOTE | 2023-06-21 14:55 | CL.D_ITS ---
Patient Name: JAIMIE TORRES Study Date: 06/21/2023 Performing: Marce Mitchell MD Ht: 61 inches 154.94 cm : 1940 Wt: 140.21 lbs 63.6 kg Age: 83 Gender: female BSA: 1.62 PROCEDURE(S) PERFORMED DC02-(31421)LHC/COR IC10-(93032)FFR, CORONARY OR GRAFT, INITIAL VESSEL CLINICAL PROFILE AND INDICATIONS Indications: Suspected CAD Heart Failure: None Angina Classification Anginal Classification w/in 2 Weeks: CCS IV CAD Presentations: Unstable angina. CONCLUSIONS 40% prox, 50-60% Mid RCA (iFR 0.94, FFR 0.87) 20% calcified Prox LAD RECOMMENDATIONS Medical therapy DESCRIPTION OF PROCEDURE The patient arrived to the procedure lab. The risks and benefits of the procedure as well as a full description of our services here and current unavailability of surgical backup were fully explained to the patient and/or their significant other prior to the catheterization. The Timeout was completed, verifying the correct patient and procedure. The patient's procedural site was prepped and draped in the usual fashion. Local anesthetic was given subcutaneously to right radial region with Lidocaine 2%. Using a modified Seldinger technique, arterial access was obtained via the right radial artery, a 6Fr sheath was inserted. Left Coronary Artery selective angiography was performed in multiple views using a 5 Fr. 4.0 [place] catheter. Right Coronary Artery selective angiography was then performed in multiple views using a 5 Fr. 4.0 [place] catheter.The arterial sheath was pulled and a TR Band was applied for hemostasis. 10cc of air CORONARY ANGIOGRAPHY DOMINANCE: Right Dominant LEFT MAIN: Angiographically normal LEFT ANTERIOR DESCENDING ARTERY: LAD: Calcified 20% Proximal lesion in LAD CIRCUMFLEX ARTERY: Angiographically normal RIGHT CORONARY ARTERY: RCA: Tubular 40% Proximal lesion in RCA Tubular 50% Mid lesion in RCA COMPLICATIONS No Complications PROCEDURE MEDICATIONS Fentanyl 25 mcg IV Versed 1 mg IV Oxygen: 4 L/min via nasal cannula Adenosine drip for FFR 22.9 ml IV @ 06/21/2023 14:41:41 Heparin given IA 06/21/2023 14:02:49 Heparin 4000 unit(s) IV 06/21/2023 14:15:40 Verapamil 2.5mg, Ntg 200mcgs, 2000 units of Heparin given IA 06/21/2023 14:02:49 SUMMARY OF HEMODYNAMIC DATA Time AIR REST ECG 13:45:47 AO 146/80 (105) SA 14:06:45 AO 168/91 (121) 14:43:38 Signed By Marce Mitchell MD On 06/21/2023 14:55:25 Marce Mitchell MD
--- NOTE | 2023-06-21 15:07 | CHAPLAIN ---
Type of Pastoral Visit ___ Initial Visit ___ Follow-up Visit ___ On-call Visit ___ General Patient Visit ___ Spiritual Assessment ___ Family Conference ___ Bereavement ___ Rapid Response ___ Code Blue ___ Other (describe below) Pastoral Care Referral From ___ Patient ___ Family ___ Nurse ___ Physician ___ Brief Writer ___ Shoe Planner ___ Other (describe below) Sacrament/Intervention ___ Active listening ___ Anointing ___ Pentecostalism ___ Bereavement ___ Communion ___ Isamar exploration ___ ___ Life review ___ Prayer ___ Reconciliation ___ Sacrament of Sick ___ Supportive presence ___ Wedding ___ Other (describe below) Pastoral Comments patient and bed are out of the room; a calling card is left with message of support
[2023-06-21] MEDS: 0.9% Normal Saline (1000mL) 1,000 ML 150 ML IV (16:17)
--- NOTE | 2023-06-21 16:28 | PN.HOSP_ITS ---
Reason for Visit Reason for Visit: Diagnoses Unstable angina (06/20/23) Polymyositis, organ involvement unspecified (06/20/23) Chest pain, unspecified (06/20/23) Abnormal levels of other serum enzymes (06/20/23) Other specified abnormal findings of blood chemistry (06/20/23) Objective Data Objective Data Vital Signs: Vital Signs Temp Pulse Resp BP Pulse Ox O2 Del Method O2 Flow Rate 97.2 F L 61 16 144/76 H 95 Nasal Cannula 2 06/21/23 15:00 06/21/23 16:00 06/21/23 16:00 06/21/23 16:00 06/21/23 16:00 06/21/23 16:00 06/21/23 16:00 Oxygen Flow Rate (L/min) 2 Oxygen Delivery Method Nasal Cannula Weight: 140 lb 3.424 oz Body Mass Index (BMI) 26.4 Intake & Output: Intake and Output for Last 24 Hours 06/19/23 06/20/23 06/21/23 23:59 23:59 23:59 Intake Total 1000 / 1000 Balance 1000 / 1000 Lab / Micro Data 06/21/23 05:50 06/21/23 05:50 Labs: Laboratory Results - last 24 hr 06/20/23 17:59: WBC 10.0, RBC 4.11 L, Hgb 12.4, Hct 39.1, MCV 95.1, MCH 30.2, MCHC 31.7 L, RDW Std Deviation 45.8 H, RDW Coeff of Juanito 13.2, Plt Count 394, MPV 11.1, Immature Gran % (Auto) 0.300, Neut % (Auto) 47.2, Lymph % (Auto) 38.7, Pecos % (Auto) 11.0 H, Eos % (Auto) 1.9, Baso % (Auto) 0.9, Absolute Neuts (auto) 4.7, Absolute Lymphs (auto) 3.88, Nucleated RBC % 0, PT 13.0, INR 1.0, APTT 23.7 L, Sodium 139, Potassium 3.7, Chloride 104, Carbon Dioxide 32.0, Anion Gap 3 L, BUN 10, Creatinine 0.91, Estim Creat Clear Calc 35.97, Est GFR (MDRD) Af Amer 77, Est GFR (MDRD) Non-Af 63, BUN/Creatinine Ratio 11.0, Glucose 94, Calcium 9.5, Troponin I High Sens 106 H 06/20/23 20:05: Troponin I High Sens 94 H 06/20/23 23:56: Troponin I High Sens 102 H 06/21/23 05:50: WBC 10.6, RBC 3.88 L, Hgb 11.8 L, Hct 37.3, MCV 96.1, MCH 30.4, MCHC 31.6 L, RDW Std Deviation 45.7 H, RDW Coeff of Juanito 13.1, Plt Count 354, MPV 10.9, Sodium 139, Potassium 3.9, Chloride 106, Carbon Dioxide 30.0, Anion Gap 3 L, BUN 11, Creatinine 0.83, Estim Creat Clear Calc 39.43, Est GFR (MDRD) Af Amer 85, Est GFR (MDRD) Non-Af 70, BUN/Creatinine Ratio 13.3, Glucose 100, Calcium 8. 9, Total Bilirubin 0.70, AST 328 H, ALT 175 H, Alkaline Phosphatase 90, Total Creatine Kinase 49, Total Protein 6.8, Albumin 3.3, Globulin 3.5, Albumin/Gl obulin Ratio 0.9, Triglycerides 96, Cholesterol 165, LDL Cholesterol 55, VLDL Cholesterol 19, HDL Cholesterol 91, TSH 3.48 06/21/23 06:21: POC Glucose 106 Radiography Diagnostic Testing: Radiology Impression Chest X-Ray 06/20/23 18:50 IMPRESSION: Possible mild right upper lobe infiltrate/scarring Electronically Signed: Nicola Becerra DO at 19:13 EST Reading Location ID and State: [address] [place] [address] Tel [phone], Service support , Echocardiogram 06/20/23 22:13 Interpretation Summary Diastolic function is indeterminate. The estimated ejection fraction is 60 %. The left atrium is mildly enlarged. Mild-Moderate (1-2+) mitral valve insufficiency. Right ventricular systolic pressure estimated to be 55 mmHg. Mild to moderate aortic stenosis. Mean aortic valve gradient 25 mmHg. Ordering Physician: Luis Velez Referring Physician: Dewayne Rios M.D. Performed By: Leonora Bowie RDCS Rhythm Strip Rhythm Strip: Sinus Rhythm Physical Exam Narrative Seen and examined. No chest pain or pressure now. General: Alert, Oriented x3, Cooperative HEENT: Atraumatic, PERRLA, EOMI, Normocephalic Oral: Oral mucosa moist. No Gingival or Mucosal Lesions/ Ulcerations Neck: Supple, No JVD, Negative Carotid Bruits Lungs: Air entry diminished in bilateral lung bases. No crepitation/rhonchi Cardiovascular: Regular rate, Regular Rhythm, Normal S1, Normal S2,Systolic murmur over LLSB, cardiac apex with radiation to left axilla, MR. Abdomen: Bowel Sounds Present, Soft, Non Tender, Non-Distended : Chronic urinary incontinence. No renal angle tenderness. No suprapubic tenderness. Extremities: No edema, Capillary Refill Less than 3 Seconds Skin: No rashes, No breakdown Musculoskeletal: No Tenderness to Palpation of Joints or Extremities Neurological: Cranial nerves II-XII grossly intact, DTR 2+/4. No acute focal neurological deficit. Psych/Mental Status: Normal Affect, Appropriate. Assessment & Plan Assessment/Plan (1) Elevated troponin: (2) Chest pain: QUALIFIERS: Chest pain type: chest pain due to myocardial ischemia Ischemic chest pain type: unstable angina pectoris Qualified Code(s): I20.0 - Unstable angina PLAN: Plan 83-year-old female is being admitted for chest pain that is started 6 days ago, waxing and waning, sharp in quality over left chest with radiation to left arm and jaw with worsening from movement of left arm but improvement with Tylenol and Tums. Patient also has cough with yellow sputum. No fever or chills. No acute shortness of breath lightheadedness or dizziness. No nausea or vomiting.She states her primary pain 1 on the left upper extremity and then it moved to the chest. She, Usually also walks 5 miles without any chest discomfort or shortness of breath. 1. Elevated troponin of 106 ng/mL present on admission suspicious for NSTEMI - Admit to PCU. Continue ECASA and start Plavix, statin, Lopressor and full-dose Lovenox. Serialize troponin. Check echocardiogram to evaluate LVEF. Finally, we will consult cardiology to see this patient on-rounds in the AM for further recommendations regarding LHC with help appreciated in advance. Her serial troponins 106, 94 and 102, plateau without significant delta change. In boarder steam today patient had rapid response with dizziness, nausea and vomiting with low blood pressure. Blood pressure dropped down to 79/51 but now recovered 170/97.She also has bradycardia heart rate in 50s and once dropped to 43. Patient is back to baseline. Sheet Metal Worker Maintenance is consulted and plan for cardiac cath. She has history of hiatus hernia and GERD and follows playground official in [place]. She wants to change it to playground official in [place], talked about Dr. Tubbs. 2. Recently diagnosed Acute Bronchitis with cough productive of yellow sputum complicating #1 - Continue Cefdinir as previous plus prn Mucinex. She follows [facility] administrative assistant coordinator Dr. Stone. 3. Polymyositis - Stable at this time. Elevated transaminases: AST 328, ALT 175. Alkaline phosphatase, total bilirubin and albumin in normal range. Patient's previous liver chemistry in June 2022 was in normal range except low albumin 3.0. 4. DVT prophylaxis - Patient on full-dose Lovenox for #1. Laboratory Results 06/20/23 17:59: WBC 10.0, RBC 4.11 L, Hgb 12.4, Hct 39.1, MCV 95.1, MCH 30.2, MCHC 31.7 L, RDW Std Deviation 45.8 H, RDW Coeff of Juanito 13.2, Plt Count 394, MPV 11.1, Immature Gran % (Auto) 0.300, Neut % (Auto) 47.2, Lymph % (Auto) 38.7, Pecos % (Auto) 11.0 H, Eos % (Auto) 1.9, Baso % (Auto) 0.9, Absolute Neuts (auto) 4.7, Absolute Lymphs (auto) 3.88, Nucleated RBC % 0, PT 13.0, INR 1.0, APTT 23.7 L, Sodium 139, Potassium 3.7, Chloride 104, Carbon Dioxide 32.0, Anion Gap 3 L, BUN 10, Creatinine 0.91, Estim Creat Clear Calc 35.97, Est GFR (MDRD) Af Amer 77, Est GFR (MDRD) Non-Af 63, BUN/Creatinine Ratio 11.0, Glucose 94, Calcium 9.5, Troponin I High Sens 106 H 06/20/23 20:05: Troponin I High Sens 94 H 06/20/23 23:56: Troponin I High Sens 102 H 06/21/23 05:50: WBC 10.6, RBC 3.88 L, Hgb 11.8 L, Hct 37.3, MCV 96.1, MCH 30.4, MCHC 31.6 L, RDW Std Deviation 45.7 H, RDW Coeff of Juanito 13.1, Plt Count 354, MPV 10.9, Sodium 139, Potassium 3.9, Chloride 106, Carbon Dioxide 30.0, Anion Gap 3 L, BUN 11, Creatinine 0.83, Estim Creat Clear Calc 39.43, Est GFR (MDRD) Af Amer 85, Est GFR (MDRD) Non-Af 70, BUN/Creatinine Ratio 13.3, Glucose 100, Calcium 8.9, Total Bilirubin 0.70, AST 328 H, ALT 175 H, Alkaline Phosphatase 90, Total Protein 6.8, Albumin 3.3, Globulin 3.5, Albumin/Globulin Ratio 0.9, Triglycerides 96, Cholesterol 165, LDL Cholesterol 55, VLDL Cholesterol 19, HDL Cholesterol 91, TSH 3.48 06/21/23 06:21: POC Glucose 106
[2023-06-21] MEDS: amLODIPine 5 MG Tablet PO (17:39)
[2023-06-21] MEDS: Cefdinir 300 MG Capsule PO (20:48)
[2023-06-21] MEDS: Ferrous Gluconate 324 MG Tablet PO (20:49)
[2023-06-21] MEDS: Atorvastatin Calcium 40 MG Tablet PO (20:49)
[2023-06-22 02:11] VITALS: PULSE 73; O2SAT 92
[2023-06-22 02:50] VITALS: BP 101/67; PULSE 59; RESP 16; TEMP 36.6; O2SAT 95
[2023-06-22 07:36] VITALS: O2SAT 97
[2023-06-22 08:20] LABS: ALB/GLOB Ratio 0.9 RATIO (0.9-2.4); AST(SGOT) 357 U/L (15-37); Alanine Aminotransfer ALT/SGPT 468 U/L (13-56); Albumin, Serum 2.9 g/dL (3.2-5.0); Alkaline Phosphatase 111 U/L (45-117); Anion Gap 1 (5-15); BUN 9 mg/dL (7-18); BUN/Creat Ratio 13.4 RATIO (10-20); Bilirubin, Direct 0.15 mg/dL (0.00-0.30); Calcium,Total 8.4 mg/dL (8.5-10.1); Chloride 110 mmol/L (98-107); Creatinine, Serum 0.67 mg/dL (0.55-1.02); EST Glomerular Filtration Rate 89 mL/min (>60); Est Glom Filt Rate - Afr Amer 108 mL/min (>60); Estimated Creatinine Clearance 32.73 ml/min; Globulin 3.1 g/dL (2.2-4.2); Glucose 102 mg/dL (74-106); Potassium 4.1 mmol/L (3.5-5.1); Sodium Level 141 mmol/L (136-145); Troponin-I HS 488 pg/mL (3.0-54.0)
[2023-06-22 08:22] VITALS: BP 139/69; PULSE 58; RESP 14; TEMP 36.7; O2SAT 93
[2023-06-22] MEDS: Aspirin E.C. 81 MG Tablet PO (08:24)
[2023-06-22] MEDS: Cefdinir 300 MG Capsule PO ×2 (08:25→20:39)
[2023-06-22] MEDS: amLODIPine 5 MG Tablet PO (08:25)
[2023-06-22] MEDS: Ferrous Gluconate 324 MG Tablet PO ×2 (08:25→20:39)
--- NOTE | 2023-06-22 10:15 | PCM.PN.HOSP ---
Reason for Visit Reason for Visit: Diagnoses Unstable angina (06/20/23) Polymyositis, organ involvement unspecified (06/20/23) Chest pain, unspecified (06/20/23) Abnormal levels of other serum enzymes (06/20/23) Other specified abnormal findings of blood chemistry (06/20/23) Objective Data Objective Data Vital Signs: Vital Signs Temp Pulse Resp BP Pulse Ox O2 Del Method O2 Flow Rate 98.0 F 58 L 14 139/69 H 93 Room Air 2 06/22/23 08:22 06/22/23 08:22 06/22/23 08:22 06/22/23 08:22 06/22/23 08:22 06/22/23 08:22 06/22/23 07:36 Oxygen Flow Rate (L/min) 2 Oxygen Delivery Method Room Air Weight: 140 lb 3.424 oz Body Mass Index (BMI) 26.4 Intake & Output: Intake and Output for Last 24 Hours 06/20/23 06/21/23 06/22/23 23:59 23:59 23:59 Intake Total 2360 / 2360 Balance 2360 / 2360 Lab / Micro Data 06/21/23 05:50 06/22/23 06:45 Labs: Laboratory Results - last 24 hr 06/22/23 06:45: Sodium 141, Potassium 4.1, Chloride 110 H, Carbon Dioxide 30.0, Anion Gap 1 L, BUN 9, Creatinine 0.67, Estim Creat Clear Calc 32.73, Est GFR (MDRD) Af Amer 108, Est GFR (MDRD) Non-Af 89, BUN/Creatinine Ratio 13.4, Glucose 102, Calcium 8.4 L, Total Bilirubin 0.40, Direct Bilirubin 0.15, AST 357 H, ALT 468 H, Alkaline Phosphatase 111, Troponin I High Sens 488 H*, Total Protein 6.0 L, Albumin 2.9 L, Globulin 3.1, Albumin/Globulin Ratio 0.9 Radiography Diagnostic Testing: Radiology Impression Echocardiogram 06/20/23 22:13 Interpretation Summary Diastolic function is indeterminate. The estimated ejection fraction is 60 %. The left atrium is mildly enlarged. Mild-Moderate (1-2+) mitral valve insufficiency. Right ventricular systolic pressure estimated to be 55 mmHg. Mild to moderate aortic stenosis. Mean aortic valve gradient 25 mmHg. Ordering Physician: Luis Velez Referring Physician: Dewayne Rios M.D. Performed By: Leonora Bowie RDCS Abdomen Ultrasound 06/21/23 13:16 IMPRESSION: 1. No intrahepatic bile duct dilation. 2. Dilated common duct likely related to prior cholecystectomy. Electronically Signed: Nolan Sarmiento MD ([place]) at 18:04 EST , Rhythm Strip Rhythm Strip: Sinus Rhythm Physical Exam Narrative The patient has a history of polymyositis. She she had left upper extremity pain including the scapular region and shoulder region. Her pain is much better. Denies any chest pain or tightness. Seen and examined. Physical exam: General: Alert, Oriented x3, Cooperative HEENT: Atraumatic, PERRLA, EOMI, Normocephalic Oral: Oral mucosa moist. No Gingival or Mucosal Lesions/ Ulcerations Neck: Supple, No JVD, Negative Carotid Bruits Lungs: Air entry diminished in bilateral lung bases. No crepitation/rhonchi Cardiovascular: Regular rate, Regular Rhythm, Normal S1, Normal S2,Systolic murmur over right second ICS, LLSB, cardiac apex with radiation to left axilla, plus MR. Abdomen: Bowel Sounds Present, Soft, Non Tender, Non-Distended : Chronic urinary incontinence. No renal angle tenderness. No suprapubic tenderness. Extremities: No edema, Capillary Refill hypotension and bradycardia 3 Seconds Skin: No rashes, No breakdown Musculoskeletal: No Tenderness to Palpation of Joints or Extremities Neurological: Cranial nerves II-XII grossly intact, DTR 2+/4. No acute focal neurological deficit. Psych/Mental Status: Normal Affect, Appropriate Assessment & Plan Assessment/Plan (1) Elevated troponin: (2) Chest pain: QUALIFIERS: Chest pain type: chest pain due to myocardial ischemia Ischemic chest pain type: unstable angina pectoris Qualified Code(s): I20.0 - Unstable angina PLAN: Plan 83-year-old female is being admitted for chest pain that is started 6 days ago, waxing and waning, sharp in quality over left chest with radiation to left arm and jaw with worsening from movement of left arm but improvement with Tylenol and Tums. Patient also has cough with yellow sputum. No fever or chills. No acute shortness of breath lightheadedness or dizziness. No nausea or vomiting.She states her primary pain 1 on the left upper extremity and then it moved to the chest. She, Usually also walks 5 miles without any chest discomfort or shortness of breath. 1. Elevated troponin of 106 ng/mL present on admission suspicious for NSTEMI -the patient was admitted to PCU on monitored bed and then start on baby aspirin, Plavix, statin, Lopressor and full-dose Lovenox. Inventory Control Associate was consulted. Her serial troponins 106, 94 and 102, plateau without significant delta change. Twelve-lead EKG individually reviewed and shows sinus bradycardia 50/min, QTc 488 ms, mildly prolonged. LVH. Old inferior infarct. No significant ST-T changes. Patient was evaluated by adviser sales initially thought to do stress test but stress test not possible due to long weekend therefore decided for cardiac cath. The patient had cardiac cath which showed calcified 20% proximal LAD, RCA proximal 40%, mid 50% otherwise normal left main and circumflex artery. Medical therapy recommended. 2D echo EF 60%, LA mildly enlarged mild to moderate MR, RVSP 55 mmHg, mild to moderate aortic stenosis with mean AV gradient 25 mmHg. 06/22: Non-STEMI/Unstable angina: It seems patient has elevated troponin from polymyositis. Patient is not candidate for statin due to history of Polymycin elevated transaminases. 2. In chemical laboratory assistant today patient had rapid response with dizziness, nausea and vomiting with low blood pressure. Blood pressure dropped down to 79/51 but now recovered 170/97.She also has bradycardia heart rate in 50s and once dropped to 43. Patient is back to baseline. She has history of hiatus hernia and GERD and follows certified professional ergonomist in [place]. She wants to change it to certified professional ergonomist in [place], talked about Dr. Tubbs. 2. Recently diagnosed Acute Bronchitis with cough productive of yellow sputum complicating #1 - Continue Cefdinir as previous plus prn Mucinex. She follows [facility] archaeology professor Dr. Stone. 3. Polymyositis patient had left upper extremity shoulder and scapular region pain as mentioned above Elevated transaminases: AST 328, ALT 175. Alkaline phosphatase, total bilirubin and albumin in normal range. Patient's previous liver chemistry in June 2022 was in normal range except low albumin 3.0. 06/22: Troponin slightly went up 488. ALT and AST went up. Patient had 1 dose of atorvastatin probably due to that. Atorvastatin discontinued. Repeat CK normal. Monitor liver chemistry and troponin tomorrow AM. Follow-up with general practitioner in outpatient. 4. DVT prophylaxis - Patient on full-dose Lovenox for #1. Laboratory Results 06/22/23 06:45: Sodium 141, Potassium 4.1, Chloride 110 H, Carbon Dioxide 30.0, Anion Gap 1 L, BUN 9, Creatinine 0.67, Estim Creat Clear Calc 32.73, Est GFR (MDRD) Af Amer 108, Est GFR (MDRD) Non-Af 89, BUN/Creatinine Ratio 13.4, Glucose 102, Calcium 8.4 L, Total Bilirubin 0.40, Direct Bilirubin 0.15, AST 357 H, ALT 468 H, Alkaline Phosphatase 111, Total Creatine Kinase 56, Troponin I High Sens 488 H*, Total Protein 6.0 L, Albumin 2.9 L, Globulin 3.1, Albumin/Globulin Ratio 0.9 Charges/Coding Visit Charges Inpatient E&M: 35701 Subs Hosp L2
[2023-06-22 10:53] LABS: CPK Total, Creatine Kinase 56 U/L (26-192)
[2023-06-22 14:20] VITALS: BP 101/54; PULSE 75; RESP 16; TEMP 36.4; O2SAT 97
[2023-06-22 20:37] VITALS: BP 130/69; PULSE 73; RESP 20; TEMP 36.4; O2SAT 93
[2023-06-22] MEDS: Calcium Carbonate 500 MG Tablet PO (23:07)
[2023-06-23 02:55] VITALS: BP 150/71; PULSE 62; RESP 18; TEMP 36; O2SAT 93
[2023-06-23 05:01] LABS: Absolute Lymphocyte Count 2.22 X10^3/uL (0.83-4.51); Absolute Neutrophil Count 5.3 X10^3/uL (2.0-7.7); Basophil# 0.06 X10^3/uL; Basophil% 0.7 % (0-1); Eosinophil# 0.41 X10^3/uL; Eosinophils% 4.5 % (0-5); Hematocrit 35.1 % (37-47); Lymphocyte # 2.22 X10^3/ul (0.83-4.51); Lymphocyte % 24.6 % (19-41); Mean Corp Hgb Conc 31.3 g/dL (32-36); Mean Corpuscular Hgb 30.6 pg (27.0-32.0); Mean Corpuscular Volume 97.8 fL (81-99); Mean Platelet Vol. 10.8 fl (6.2-12.0); Monocyte# 1.02 X10^3/uL; Monocyte% 11.3 % (0-10); NRBC Flagged by Analyzer 0 % (0-5); Neutrophil # 5.26 X10^3/uL (2.7-7.7); Neutrophil % 58.3 % (47-70); Platelet Count 295 K/mm3 (150-450); RBC Distribution Width CV 13.2 % (11.6-14.6); RBC Distribution Width SD 47.1 fl (35.1-43.9); Red Blood Count 3.59 M/mm3 (4.2-5.4)
[2023-06-23 05:31] LABS: AST(SGOT) 108 U/L (15-37); Alanine Aminotransfer ALT/SGPT 280 U/L (13-56); Albumin, Serum 2.9 g/dL (3.2-5.0); Alkaline Phosphatase 99 U/L (45-117); Anion Gap 5 (5-15); BUN 13 mg/dL (7-18); BUN/Creat Ratio 19.5 RATIO (10-20); Bilirubin, Direct 0.09 mg/dL (0.00-0.30); Calcium,Total 8.7 mg/dL (8.5-10.1); Chloride 108 mmol/L (98-107); Creatinine, Serum 0.66 mg/dL (0.55-1.02); EST Glomerular Filtration Rate 90 mL/min (>60); Est Glom Filt Rate - Afr Amer 109 mL/min (>60); Estimated Creatinine Clearance 32.73 ml/min; Globulin 3.3 g/dL (2.2-4.2); Glucose 141 mg/dL (74-106); Protein, Total 6.2 g/dL (6.4-8.2); Sodium Level 142 mmol/L (136-145)
--- NOTE | 2023-06-23 07:06 | PCM.DC ---
Discharge Instructions Diet Discharge Diet: No restrictions Activity Discharge Activity: Return to Normal Activity Weight Bearing Status: Weight bearing as tolerated Additional Activity Instructions:: No heavy lifting pushing pulling or high exertional because she has history of polymyositisincreased CPK Dressing / Incision Call your doctor if you observe: Fever of 101 or Higher, Coldness, Increased Pain, Numbness or Tingling, Change in Color, Inability to urinate, Inability to have a bowel movement, Using more than 1 pad per hour, Shortness of breath, Dizziness, Fainting spells, Swelling in the ankles, Chest pain, Prolonged hiccupping, Increased palpitations (irregular heartbeat) and Calf discomfort Follow Up Care When: IN 2 WEEKS Test Results: Test results from this visit will be discussed in further detail at your follow-up appointment, if applicable. Discharge Plan Admission Admit Date/Time: 06/20/23 20:37 Primary Reason for Your Visit: Near syncope Attending Provider: Mitch Jameson Primary Care Provider: Dewayne Rios Consulting Providers: Marce Mitchell; Luis Velez Instructions Additional Instructions / Restrictions: Advised follow-up with the setter molding and coremaking machines Dr. Miller in about 1 month. Patient like to follow-up with her own whittling room operator in [place] where her also follows If her blood pressure still remains high, systolic more than 150 mmHg, consider starting low-dose HCTZ by PCP. Patient follows Dr. Mckenna Stone [facility] wellness specialist. Recently was put on cefdinir 300 mg twice daily for bronchitis and she will complete it. Discharge Orders/Prescriptions Prescriptions: New aspirin 81 mg Tablet,Delayed Release (Dr/Ec) 81 mg PO BREAKFAST 30 Days Qty: 30 2RF ferrous gluconate 324 mg (37.5 mg iron) Tablet 324 mg PO QODAY 30 Days Qty: 30 0RF amlodipine 10 mg tablet 10 mg PO DAILY Qty: 30 2RF Rx Instructions: Hold for SBP less than 120 mmHg Continued escitalopram oxalate 20 mg tablet 20 mg PO DAILY omeprazole 40 mg capsule,delayed release(DR/EC) 40 mg PO DAILY prednisone 10 mg tablet 10 mg PO DAILY benzonatate 100 mg capsule 100 mg PO TID PRN (Reason: cough) cefdinir 300 mg capsule 300 mg PO BID Qty: 10 0RF Rx Instructions: advised to complete it Referrals / Follow Up: Friend,Maico, DO [Med Staff - Active Staff] - Within 1 Month (History of hiatus hernia and GERD.) Dewayne Rios MD [Primary Care Provider] - Disposition Disposition (needs filled in before D/C Order can be placed): Home, Self Care
[2023-06-23] MEDS: Aspirin E.C. 81 MG Tablet PO (08:15)
[2023-06-23] MEDS: amLODIPine 5 MG Tablet PO (08:15)
[2023-06-23] MEDS: Ferrous Gluconate 324 MG Tablet PO (08:15)
[2023-06-23] MEDS: Cefdinir 300 MG Capsule PO (08:15)
[2023-06-23 08:16] VITALS: BP 146/109; PULSE 57; RESP 14; TEMP 36.6; O2SAT 93
--- NOTE | 2023-06-23 09:34 | CASEMGMT ---
Social Work Pt had stated to admitting RN that she does have POA, it is her , unable to bring in the documents. STACIE Maravilla
[2023-06-23 09:55] VITALS: O2SAT 93
--- NOTE | 2023-06-23 10:58 | DS.PCM_ITS ---
Providers Date of Admission: 06/20/23 Date of Discharge: 06/23/23 Primary Care Physician: Dr. Dewayne Rios MD Consultations 06/20/23 22:13 Consult: Cardiology Routine Consulting Provider: Marce Mitchell Reason for Consult: Chest Pain EMERGENT Consult: No MD Notified: Yes Date Notified: 06/21/23 Time Notified: 06:40 Method of Notification: Text Method of Consult:: In-Person Comments:: NSTEMI. Reason For Visit: NSTEMI Diagnosis Discharge Diagnosis (1) Elevated troponin: Status: Acute Code(s): R79.89 - Other specified abnormal findings of blood chemistry (2) Chest pain: Status: Acute Code(s): R07.9 - Chest pain, unspecified Qualifiers: Chest pain type: chest pain due to myocardial ischemia Ischemic chest pain type: unstable angina pectoris Qualified Code(s): I20.0 - Unstable angina Plan 83-year-old female is being admitted for chest pain that is started 6 days ago, waxing and waning, sharp in quality over left chest with radiation to left arm and jaw with worsening from movement of left arm but improvement with Tylenol and Tums. Patient also has cough with yellow sputum. No fever or chills. No acute shortness of breath lightheadedness or dizziness. No nausea or vomiting.She states her primary pain 1 on the left upper extremity and then it moved to the chest. She, Usually also walks 5 miles without any chest discomfort or shortness of breath. 1. Elevated troponin of 106 ng/mL present on admission suspicious for NSTEMI - the patient was admitted to PCU on monitored bed and then start on baby aspirin, Plavix, statin, Lopressor and full-dose Lovenox. Concrete Conveyor Operator was consulted. Her serial troponins 106, 94 and 102, plateau without significant delta change. Twelve-lead EKG individually reviewed and shows sinus bradycardia 50/min, QTc 488 ms, mildly prolonged. LVH. Old inferior infarct. No significant ST-T changes. Patient was evaluated by user support analyst supervisor initially thought to do stress test but stress test not possible due to long weekend therefore decided for cardiac cath. The patient had cardiac cath which showed calcified 20% proximal LAD, RCA proximal 40%, mid 50% otherwise normal left main and circumflex artery. Medical therapy recommended. 2D echo EF 60%, LA mildly enlarged mild to moderate MR, RVSP 55 mmHg, mild to moderate aortic stenosis with mean AV gradient 25 mmHg. 06/22: Non-STEMI/Unstable angina: It seems patient has elevated troponin from polymyositis. Patient is not candidate for statin due to history of Polymycin elevated transaminases. 06/22: Patient given prescription for baby aspirin. Rest as mentioned above. Patient blood pressure when she came was low, dropped in low 80s but now recovered. Currently her blood pressure ranges from 101/54-1 46/109. Amlodipine dose increased to 10 mg daily. As an outpatient if her blood pressure remains elevated more than 150, consider low-dose HCTZ but patient is at risk for dehydration, hypotension and fall. 2. Vasovagal attack with bradycardia, hypotension, rapid response with dizziness, nausea and vomiting with low blood pressure on 06/21/2023. Blood pressure dropped down to 79/51 but now recovered 170/97.She also has bradycardia heart rate in 50s and once dropped to 43. Patient is back to baseline. 06/22: Slow titration of antihypertensive medications. Resolved now. She has history of hiatus hernia and GERD and follows manager staffing in [place]. She wants to change it to manager staffing in [place], talked about Dr. Tubbs. Follow-up with Dr. Tubsb in 1 month in GI clinic. 2. Recently diagnosed Acute Bronchitis with cough productive of yellow sputum complicating #1 - Continue Cefdinir as previous plus prn Mucinex. She follows [facility] research lab assistant Dr. Mckenna stone. 3. Polymyositis patient had left upper extremity shoulder and scapular region pain as mentioned above Elevated transaminases: AST 328, ALT 175. Alkaline phosphatase, total bilirubin and albumin in normal range. Patient's previous liver chemistry in June 2022 was in normal range except low albumin 3.0. 06/22: Troponin slightly went up 488. ALT and AST went up. Patient had 1 dose of atorvastatin probably due to that. Atorvastatin discontinued. Repeat CK normal. Monitor liver chemistry and troponin tomorrow AM. Follow-up with j2ee application developer in outpatient. 06/23: ALT and AST as much improved. CPK normal. Patient had j2ee application developer,Dr. Gibbons in [facility] who retired want to follow rheumatology therefore advised to follow with Dr. Miller within 1 month. 4. DVT prophylaxis - Patient on full-dose Lovenox for #1. Discharge medication reconciliation done. Discharge follow-up instructions completed. Discharge process discussed with the patient and all questions were answered to patient's satisfaction. Follow with PCP in 1 to 2 weeks Total time spent, exact 35 minutes on discharge meds reconciliation, examination, coordination of care with nurses and ancillary staff, review of imaging and blood test and discussion with the patient on follow-up in structions. Medications at Discharge Home Medications benzonatate 100 mg capsule 100 mg PO TID PRN cough 06/20/23 escitalopram oxalate 20 mg tablet 20 mg PO DAILY 06/20/23 omeprazole 40 mg capsule,delayed release 40 mg PO DAILY 06/20/23 prednisone 10 mg tablet 10 mg PO DAILY 06/20/23 amlodipine 10 mg tablet 10 mg PO DAILY #30 tabs 06/23/23 aspirin 81 mg tablet,delayed release 81 mg PO BREAKFAST 30 days #30 tabs 06/23/23 cefdinir 300 mg capsule 300 mg PO BID #10 caps 06/23/23 ferrous gluconate 324 mg (37.5 mg iron) tablet 324 mg PO QODAY 30 days #30 tabs 06/23/23 Physical Exam Narrative The patient has a history of polymyositis. She she had left upper extremity pain including the scapular region and shoulder region which is much improved. Her pain is much better. Denies any chest pain or tightness.. Advised against lifting heavy object, exertional activity, pushing pulling sudden change in posture. Seen and examined. Physical exam: General: Alert, Oriented x3, Cooperative HEENT: Atraumatic, PERRLA, EOMI, Normocephalic Oral: Oral mucosa moist. No Gingival or Mucosal Lesions/ Ulcerations Neck: Supple, No JVD, Negative Carotid Bruits Lungs: Air entry diminished in bilateral lung bases. No crepitation/rhonchi Cardiovascular: Regular rate, Regular Rhythm, Normal S1, Normal S2,Systolic murmur over right second ICS, LLSB, cardiac apex with radiation to left axilla, plus MR. Abdomen: Bowel Sounds Present, Soft, Non Tender, Non-Distended : Chronic urinary incontinence. No renal angle tenderness. No suprapubic tenderness. Extremities: No edema, Capillary Refill hypotension and bradycardia 3 Seconds Skin: No rashes, No breakdown Musculoskeletal: No Tenderness to Palpation of Joints or Extremities. Mild tenderness of muscles of shoulder joint. Neurological: Cranial nerves II-XII grossly intact, DTR 2+/4. No acute focal neurological deficit. Psych/Mental Status: Normal Affect, Appropriate Weight / BMI Weight Weight: 140 lb 3.424 oz Body Mass Index (BMI) 26.4 ABG / Lab / Microbiology Data 06/23/23 04:30 06/23/23 04:30 Laboratory: Laboratory Results - last 24 hr 06/23/23 04:30: WBC 9.0, RBC 3.59 L, Hgb 11.0 L, Hct 35.1 L, MCV 97.8, MCH 30.6, MCHC 31.3 L, RDW Std Deviation 47.1 H, RDW Coeff of Juanito 13.2, Plt Count 295, MPV 10.8, Immature Gran % (Auto) 0.600, Neut % (Auto) 58.3, Lymph % (Auto) 24.6, [place] % (Auto) 11.3 H, Eos % (Auto) 4.5, Baso % (Auto) 0.7, Absolute Neuts (auto) 5.3, Absolute Lymphs (auto) 2.22, Nucleated RBC % 0, Sodium 142, Potassium 4.0, Chloride 108 H, Carbon Dioxide 29.0, Anion Gap 5, BUN 13, Creatinine 0.66, Estim Creat Clear Calc 32.73, Est GFR (MDRD) Af Amer 109, Est GFR (MDRD) Non-Af 90, BUN/Creatinine Ratio 19.5, Glucose 141 H, Calcium 8.7, Total Bilirubin 0.20, Direct Bilirubin 0.09, AST 108 H, ALT 280 H, Alkaline Phosphatase 99, Total Protein 6.2 L, Albumin 2.9 L, Globulin 3.3 D/C Instructions Discharge Diet: No restrictions Weight Bearing Status: Weight bearing as tolerated Additional Activity Instructions: No heavy lifting pushing pulling or high exertional because she has history of polymyositisincreased CPK Call your doctor if you observe: Fever of 101 or Higher, Coldness, Increased Pain, Numbness or Tingling, Change in Color, Inability to urinate, Inability to have a bowel movement, Using more than 1 pad per hour, Shortness of breath, Dizziness, Fainting spells, Swelling in the ankles, Chest pain, Prolonged hiccupping, Increased palpitations (irregular heartbeat) and Calf discomfort When: IN 2 WEEKS Meaningful Use Info Meaningful Use Diagnoses (Choose all that apply): None applicable Discharge Plan Admission Admit Date/Time: 06/20/23 20:37 Primary Reason for Your Visit: Near syncope Attending Provider: Mitch Jameson Primary Care Provider: Dewayne Rios Consulting Providers: Marce Mitchell; Luis Velez Instructions Additional Instructions / Restrictions: Advised follow-up with the j2ee application developer Dr. Miller in about 1 month. Patient like to follow-up with her own user support analyst supervisor in [place] where her also follows If her blood pressure still remains high, systolic more than 150 mmHg, consider starting low-dose HCTZ by PCP. Patient follows Dr. Mckenna Stone [facility] research lab assistant. Recently was put on cefdinir 300 mg twice daily for bronchitis and she will complete it. Discharge Orders/Prescriptions Prescriptions: New aspirin 81 mg Tablet,Delayed Release (Dr/Ec) 81 mg PO BREAKFAST 30 Days Qty: 30 2RF ferrous gluconate 324 mg (37.5 mg iron) Tablet 324 mg PO QODAY 30 Days Qty: 30 0RF amlodipine 10 mg tablet 10 mg PO DAILY Qty: 30 2RF Rx Instructions: Hold for SBP less than 120 mmHg Continued escitalopram oxalate 20 mg tablet 20 mg PO DAILY omeprazole 40 mg capsule,delayed release(DR/EC) 40 mg PO DAILY prednisone 10 mg tablet 10 mg PO DAILY benzonatate 100 mg capsule 100 mg PO TID PRN (Reason: cough) cefdinir 300 mg capsule 300 mg PO BID Qty: 10 0RF Rx Instructions: advised to complete it Referrals / Follow Up: Maico Tubbs DO [Med Staff - Active Staff] - Within 1 Month (History of hiatus hernia and GERD.) Dewayne Rios MD [Primary Care Provider] - Disposition Disposition (needs filled in before D/C Order can be placed): Home, Self Care Charges/Coding Visit Charges Inpatient E&M: 96247 Disch Hosp >30min
--- NOTE | 2023-06-23 11:19 | CASEMGMT ---
RN CN NOTE: Pt being discharged. RN CM to room. Pt resting in bed. @ bedside. Pt and deny having any discharge planning needs or concerns. BSN REA CM
[2023-06-23 11:25] VITALS: BP 129/68; PULSE 64; RESP 16; TEMP 36.4; O2SAT 95
--- NOTE | 2023-06-26 12:39 | CASEMGMT ---
REA JETT: Call received from pt stating she contacted Dr. Miller's office and they are requesting a referral and a copy of her insurance cards prior to scheduling an appointment. This REA JETT contacted Dr. Miller's office and confirmed this with Ruthie. A copy of pt's DC summary and pt's insurance card was faxed per their request. Tera Pulido RN CM
== END 2023-06-23 12:03 | disposition home or self-care (01) | DRG 546 ==
LOC: ED 20:24 → PCU 21:37
PROVIDERS: Admitting Provider Internal Medicine; Emergency Provider Emergency Medicine; PCP Internal Medicine; Visit Provider Internal Medicine
DX: M33.20 Polymyositis, organ involvement unspecified (principal); I5A Non-ischemic myocardial injury (non-traumatic); I35.0 Nonrheumatic aortic (valve) stenosis; I25.10 Atherosclerotic heart disease of native coronary artery without angina pectoris; I25.2 Old myocardial infarction; J20.9 Acute bronchitis, unspecified; K21.9 Gastro-esophageal reflux disease without esophagitis; R11.2 Nausea with vomiting, unspecified; R55 Syncope and collapse; Z87.891 Personal history of nicotine dependence
CPT/HCPCS: 36415; 71045; 76705; 80048; 80053; 80061; 80076; 82550; 82962; 84443; 84484; 85025; 85027; 85610; 85730; 93005; 93306; 93454; 93571; 99152; 99153; 99285; J0153; J7030; Q9967; A4216; C1769; C1887; C1894; J2405

== ENCOUNTER → 2023-08-16 | Outpatient (CLI) | payer MEDICARE, SELFPAY ==
--- NOTE | 2023-08-16 14:38 | RAD_ITS ---
EXAM: XR PELVIS, 1 OR 2 VIEWS CLINICAL INDICATION: Other psoriatic arthropathy -- ATTN HIPS TECHNIQUE: Frontal view of the pelvis. COMPARISON: No relevant prior studies available. FINDINGS: BONES/JOINTS: There are degenerative changes with narrowing of the joint spaces. No displaced fracture. No destructive or sclerotic lesions. Note that overlapping bowel shadows may however obscure fine detail. Sacroiliac joints are unremarkable. No widening of the pubic symphysis. SOFT TISSUES: Unremarkable. No soft tissue swelling or gas. RAD/Pelvis 1 or 2 Views IMPRESSION: Mild degenerative changes with narrowing of the hip joints. There are no acute osseous abnormalities. Electronically Signed: Aleksander Bowden MD at 0:00 EST ,
[2023-08-16 17:39] LABS: Absolute Lymphocyte Count 2.81 X10^3/uL (0.83-4.51); Absolute Neutrophil Count 4.9 X10^3/uL (2.0-7.7); Basophil# 0.07 X10^3/uL; Basophil% 0.8 % (0-1); Eosinophil# 0.23 X10^3/uL; Eosinophils% 2.6 % (0-5); Hematocrit 37.4 % (37-47); Hemoglobin 11.5 g/dL (12.0-15.0); Lymphocyte # 2.81 X10^3/ul (0.83-4.51); Lymphocyte % 31.5 % (19-41); Mean Corp Hgb Conc 30.7 g/dL (32-36); Mean Corpuscular Hgb 29.7 pg (27.0-32.0); Mean Corpuscular Volume 96.6 fL (81-99); Mean Platelet Vol. 11.3 fl (6.2-12.0); Monocyte# 0.88 X10^3/uL; Monocyte% 9.9 % (0-10); NRBC Flagged by Analyzer 0 % (0-5); Neutrophil % 54.9 % (47-70); Platelet Count 396 K/mm3 (150-450); Red Blood Count 3.87 M/mm3 (4.2-5.4); White Blood Count 8.9 K/mm3 (4.4-11.0)
[2023-08-16 18:04] LABS: Erythrocyte Sedimentation Rate 17 mm/hr (0-30)
[2023-08-16 18:15] LABS: ALB/GLOB Ratio 0.9 RATIO (0.9-2.4); AST(SGOT) 22 U/L (15-37); Alanine Aminotransfer ALT/SGPT 19 U/L (13-56); Albumin, Serum 3.6 g/dL (3.2-5.0); Alkaline Phosphatase 74 U/L (45-117); Anion Gap 4 (5-15); BUN 9 mg/dL (7-18); BUN/Creat Ratio 12.2 RATIO (10-20); CPK Total, Creatine Kinase 75 U/L (26-192); Calcium,Total 9.7 mg/dL (8.5-10.1); Chloride 107 mmol/L (98-107); Creatinine, Serum 0.74 mg/dL (0.55-1.02); EST Glomerular Filtration Rate 80 mL/min (>60); Est Glom Filt Rate - Afr Amer 97 mL/min (>60); Globulin 4.2 g/dL (2.2-4.2); Glucose 93 mg/dL (74-106); Potassium 4.1 mmol/L (3.5-5.1); Protein, Total 7.8 g/dL (6.4-8.2); Rheumatoid Factor < 10.0 IU/mL (<15); Sodium Level 139 mmol/L (136-145)
[2023-08-16 18:56] LABS: Hepatitis B Surface Antigen Non-Reactive (Nonreactive); Hepatitis C Antibody Non-Reactive (Nonreactive)
[2023-08-17 15:14] LABS: Hepatitis B Surface Antibody Non-Reactive
[2023-08-18 11:08] LABS: ANTINUCLEAR ANTIBODIES DIRECT Negative (Negative)
[2023-08-18 14:09] LABS: Aldolase 3.5 U/L (3.3-10.3); CCP IgG Antibodies 5 units (0-19); Hepatitis B Core Ab Total Negative (Negative)
== END | disposition home or self-care (01) ==
PROVIDERS: PCP Internal Medicine; Referring Provider Internal Medicine Rheumatology; Visit Provider Internal Medicine Rheumatology
DX: L40.59 Other psoriatic arthropathy (principal); M33.20 Polymyositis, organ involvement unspecified; L40.8 Other psoriasis; M47.897 Other spondylosis, lumbosacral region
CPT/HCPCS: 36415; 72170; 80053; 82085; 82550; 85025; 85652; 86038; 86140; 86200; 86431; 86704; 86706; 86803; 87340

== ENCOUNTER 2023-10-23 17:47 | Observation (INO) | payer MEDICARE, SELFPAY ==
[2023-10-23] VITALS (13 sets, daily range): BP systolic 91–124; BP diastolic 62–101; PULSE 70–88; RESP 15–20; TEMP 36.5–37.1; O2SAT 88–94; BMI 27.6
[2023-10-23] MEDS: Meclizine HCl 25 MG Tablet PO (18:27)
--- NOTE | 2023-10-23 18:40 | RAD_ITS ---
INDICATION: productive cough EXAMINATION/TECHNIQUE: X-RAY - XR Chest 2 Views COMPARISON: No previous relevant examinations available for comparison.. FINDINGS: LIFE-SUPPORT AND LINES: 1. None HEART AND VESSELS: The cardiac silhouette, pulmonary vasculature have normal appearance. No evidence of congestive failure. LUNGS AND PLEURAL SPACES: Elevation RIGHT hemidiaphragm RIGHT basilar atelectasis, coarse interstitial markings at both lung bases without consolidation or effusion. No pulmonary mass is noted. MEDIASTINUM AND HILAR REGIONS: No masses adenopathy noted. No areas of calcification. Visualized upper airway is normal in position. BONY ELEMENTS: No acute bony changes noted. RAD/Chest PA and Lateral IMPRESSION: 1. Chronic interstitial changes at the lung bases, elevation of the RIGHT hemidiaphragm. 2. No evidence of congestive failure, consolidation or effusion. Electronically Signed: Gold Watts MD at 19:24 EDT ,
--- NOTE | 2023-10-23 19:01 | EDS_ITS ---
HPI History of Present Illness Chief Complaint: Cough Informant: patient and family Narrative Narrative: 83-year-old who states for over 2 weeks she has had a productive cough and some congestion, may be some subjective fevers but productive cough and some congest ion, may be some subjective fevers but unsure if she actually has had 1, and she does not feel like it is getting any better. She is coughing up green sputum. No hemoptysis. No dyspnea, no chest discomfort. No earache but she has had disequilibrium throughout this illness, it is intermittent and goes away, lasting only short period of time, feeling like she is dizzy/vertiginous. She states mostly it occurs when she gets up out of bed in the mornings. It is caused her to have multiple minor falls, she states she has fallen on her stomach but denies any major injuries or pains from the falls. [facility] Medical History Atherosclerotic heart disease of [place] coronary artery without angina pectoris (06/21/23) Bronchitis Elevated liver enzymes FHx: cholecystectomy NSTEMI (non-ST elevated myocardial infarction) (06/21/23) Polymyositis Right rib fracture Home Medications benzonatate 100 mg capsule 100 mg PO TID PRN cough 06/20/23 [History Last Taken Unknown] escitalopram oxalate 20 mg tablet 20 mg PO DAILY 06/20/23 [History Last Taken Unknown] omeprazole 40 mg capsule,delayed release 40 mg PO DAILY 06/20/23 [History Last Taken Unknown] prednisone 10 mg tablet 10 mg PO DAILY 06/20/23 [History Last Taken Unknown] ferrous gluconate 324 mg (37.5 mg iron) tablet 324 mg PO QODAY 30 days #30 tabs 06/23/23 [Rx Last Taken Unknown] amlodipine 10 mg tablet 2.5 mg PO DAILY 10/23/23 [History Last Taken Unknown] methotrexate sodium 2.5 mg tablet 2.5 mg PO DAILY 10/23/23 [History Last Taken Unknown] Allergy/AdvReac Type Severity Reaction Status Date / Time azithromycin Allergy Hives Verified 10/23/23 17:48 erythromycin base Allergy Hives Verified 10/23/23 17:48 codeine AdvReac Upset Verified 10/23/23 17:48 Stomach Social History household members: spouse Smoking Status: Former smoker substance use type: does not use ROS ROS ED Constitutional Constitutional ED: Denies chills or fever(s) ENT ENT ED: Reports nasal congestion and vertigo; Denies ear pain, headache(s), hearing loss, otalgia, rhinorrhea, sore throat or tinnitus Cardiovascular Cardiovascular: Denies chest pain or palpitations Respiratory/Chest Respiratory/Chest: Reports cough and sputum; Denies dyspnea Gastrointestinal Gastrointestinal: Denies abdominal pain, diarrhea, nausea or vomiting Genitourinary Genitourinary ED: Denies dysuria or hematuria Musculoskeletal Musculoskeletal: Denies myalgias or neck pain Integumentary Denies abscess or rash Neurologic Neurologic: Reports disequilibrium; Denies headache(s), paresthesias or weakness Psychiatric Psychiatric: Denies depression or suicidal thoughts Endocrine Endocrinology: Denies polydipsia or polyuria EXAM Physical Exam Const Vital Signs: 10/23/23 17:48 10/23/23 17:49 10/23/23 18:30 Temperature 97.7 F L 97.7 F L Temperature Source Temporal Temporal Pulse Rate 88 88 Respiratory Rate 18 18 Respiratory Effort Normal Non-Labored Respiratory Depth Normal Respiratory Pattern Normal Blood Pressure 91/76 91/76 Blood Pressure Mean 81 81 Pulse Ox 93 93 Oxygen Delivery Method Room Air Room Air Room Air Oxygen Flow Rate (L/min) 10/23/23 18:49 10/23/23 19:56 10/23/23 19:58 Temperature 98.8 F 97.8 F Temperature Source Temporal Temporal Pulse Rate 70 74 Respiratory Rate 18 19 H Respiratory Effort Respiratory Depth Respiratory Pattern Blood Pressure 104/62 115/72 Blood Pressure Mean 76 86 Pulse Ox 88 94 93 Oxygen Delivery Method Room Air Nasal Cannula Nasal Cannula Oxygen Flow Rate (L/min) 2 2 10/23/23 19:58 10/23/23 20:58 10/23/23 21:00 Temperature 97.9 F 98.2 F Temperature Source Temporal Oral Pulse Rate 74 78 77 Respiratory Rate 19 H 19 H Respiratory Effort Respiratory Depth Respiratory Pattern Blood Pressure 110/101 H 103/92 H Blood Pressure Mean 104 95 Pulse Ox 94 92 Oxygen Delivery Method Nasal Cannula Nasal Cannula Oxygen Flow Rate (L/min) 2 2 10/23/23 22:12 10/23/23 22:00 10/23/23 23:00 Temperature 97.9 F 97.9 F 98.2 F Temperature Source Temporal Temporal Pulse Rate 79 76 74 Respiratory Rate 20 H 19 H 19 H Respiratory Effort Respiratory Depth Respiratory Pattern Blood Pressure 122/70 H 122/78 H 124/93 H Blood Pressure Mean 87 92 103 Pulse Ox 93 93 92 Oxygen Delivery Method Nasal Cannula Nasal Cannula Oxygen Flow Rate (L/min) 2 2 Positive well nourished and well developed General Appearance ED: well developed and NAD HEENT Reports moist mucous membranes HEENT Narrative: Left TM and EAC normal. Right TM occluded by cerumen, EAC otherwise normal. No periauricular lymphadenopathy. normocephalic and atraumatic Throat: Negative for posterior oropharynx abnormal Eyes PERRL and EOMs intact bilaterally Neck no lymphadenopathy, supple and no meningeal signs Resp normal respiratory effort and clear to auscultation bilaterally Cardio no murmurs Rate: regular rate Rhythm: regular rhythm Neuro oriented x3, CN's II-XII intact bilaterally and no sensory deficits noted Neuro Narrative: Normal [id number] and [id number]. Normal Romberg. Sensorium / Orientation: alert Motor Exam: strength 5/5 throughout Psych mental status grossly normal Skin Lesions: no lesions Rashes: no rashes MDM MDM MDM Narrative Medical decision making narrative: 2 view chest x-ray obtained, which is negative for pneumonia on my interpretation, and COVID/influenza/RSV swab was obtained which is positive for influenza A. I suspect her vertigo is peripheral, it is completely consistent with that. In this context it is likely caused by virus. While we were waiting for these test results to return, the patient became hypoxic just resting here, 87% on room air requiring 2 L of oxygen to keep her in the 90s. She was not dyspneic. We ambulated her, on room air she was still hypoxic. Given this, along with normal x-ray and clear lungs clinically, I obtained some labs, and sent her for CT angiography of the chest in order to evaluate for occult pneumonia and pulmonary embolus. I reviewed the images and the report which I agree with, basically showing patchy bilateral lower lobe infiltrates and no PE. In discussing more with the patient and the family, the family member was diagnosed with influenza 2 or 3 days ago, but this patient has been symptomatic with this illness for 2-3 weeks. I suspicion is that she just recently got influenza on top of the illness that she already had, therefore not able to rule out the possibility of this being bacterial in etiology, and I am not able to rule out the possibility that she has had influenza for only 48 hours or less. For these reasons I am giving her Levaquin and Tamiflu and admitting her to the hospital given her oxygen requirement. Lab Data Attestation: I reviewed the patient's lab results. Labs: Laboratory Results - last 24 hr 10/23/23 19:52 WBC 9.4 RBC 3.98 L Hgb 12.1 Hct 36.8 L MCV 92.5 MCH 30.4 MCHC 32.9 RDW Std Deviation 48.0 H RDW Coeff of Juanito 14.3 Plt Count 220 MPV 10.5 Immature Gran % (Auto) 0.300 Neut % (Auto) 81.0 H Lymph % (Auto) 10.1 L [place] % (Auto) 8.4 Eos % (Auto) 0.1 Baso % (Auto) 0.1 Absolute Neuts (auto) 7.6 Absolute Lymphs (auto) 0.95 Nucleated RBC % 0 Sodium 135 L Potassium 3.4 L Chloride 100 Carbon Dioxide 27.0 Anion Gap 8 BUN 12 Creatinine 0.78 Estim Creat Clear Calc 47.21 Est GFR (MDRD) Af Amer 91 Est GFR (MDRD) Non-Af 76 BUN/Creatinine Ratio 15.5 Glucose 102 Calcium 8.7 Total Creatine Kinase 365 H Radiography Diagnostic Testing: Clinical Impression(s) from Imaging Studies Chest X-Ray 10/23/23 18:40 IMPRESSION: 1. Chronic interstitial changes at the lung bases, elevation of the RIGHT hemidiaphragm. 2. No evidence of congestive failure, consolidation or effusion. Electronically Signed: Gold Watts MD at 19:24 EDT , Chest CTA 10/23/23 19:53 IMPRESSION: undefined Brain CT 10/23/23 19:55 IMPRESSION: 1. Stable exam. 2. Diffuse involutional change and chronic microvascular deep white matter disease. 3. No intracranial mass, hemorrhage or acute territorial infarct. 4. No radiographically significant sinus disease.. Electronically Signed: Gold Watts MD at 21:17 EDT , Rhythm Strip Rhythm Strip: Sinus Rhythm Rate: 76 Ectopy: None EKG Initial EKG: Attestation: I personally reviewed and interpreted this EKG as follows: Interpretation: Sinus Rhythm, No Acute Injury Pattern and Non-Specific ST Changes (Septal lateral scooping more prominent than prior 06/21/2023) Management Discussion w/another healthcare provider: Hospitalist Discharge Plan Triage Chief Complaint: Cough ED Provider: Gulshan Robertson Dx/Rx/DC Orders Clinical Impression: Influenza A, Hypoxemia, Pneumonia of both lower lobes Primary Care Provider: Dewayne Rios
--- NOTE | 2023-10-23 19:53 | EKG12_ITS ---
Test Reason : DYSRHYTHMIA Blood Pressure : / mmHG Vent. Rate : 076 BPM Atrial Rate : 076 BPM P-R Int : 178 ms QRS Dur : 082 ms QT Int : 426 ms P-R-T Axes : 090 -01 117 degrees QTc Int : 479 ms Normal sinus rhythm Septal infarct , age undetermined Nonspecific ST changes Abnormal ECG Confirmed by Van Huffman ([id number]), social media editor DEMETRIA GONZALEZ ([id number]) on 10/24/2023 1:45:15 PM Referred By: Luis Velez Confirmed By:Van Huffman
--- NOTE | 2023-10-23 19:53 | CT_ITS ---
STUDY: CTA CHEST REASON FOR EXAM: Female, 83 years old. cough, hypoxemia, nml CXR -- OK to scan before labs (recent cr good) RADIATION DOSAGE (If Supplied By Facility): CTDIvol = ( 10.22 ) mGy, DLP = ( 1067.86 ) mGycm TECHNIQUE: The examination was performed with the intravenous administration of IV 100mL Isovue-370. Post-processing of the angiographic images was performed, with multiplanar reformation and 3D reconstruction. Individualized dose optimization techniques were used for this CT. COMPARISON: None. FINDINGS: Tubes and lines: 1. No life-support noted. CTA: PULMONARY ARTERIES: There is normal configuration and contrast opacification of pulmonary outflow tract, main pulmonary arteries, segmental and intersegmental pulmonary arteries bilaterally without evidence of intraluminal filling defects. AORTIC ARCH: The aortic arch and descending aorta have normal configuration. No evidence of dissection or aneurysmal dilatation. HEART: Cardiac contour is normal, coronary vascular calcifications are present. No pericardial effusion. CT CHEST: LUNGS: [Extensive diffuse interstitial prominence at the lung bases. Patchy areas of groundglass infiltrate in the superior segment of the RIGHT lower lobe. No consolidation of. No effusion. There is an area of linear soft tissue thickening along. There is a 6 mm noncalcified pulmonary nodule in the LEFT upper lobe (series 5: Image 166. PLEURAL SPACES: Unremarkable, no effusion or pneumothorax.. MEDIASTINUM AND LYMPH NODES: Unremarkable. No significant adenopathy. BONES: Unremarkable ABDOMEN: There is a prominent hiatal hernia. Postop changes of prior cholecystectomy. Other: None IMPRESSIONS: 1. No CTA evidence of pulmonary embolism. 2. No CTA evidence of aortic aneurysm or dissection 3. Normal CT appearance of the heart and pericardium. Coronary vascular calcifications are present. 4. Patchy areas of interstitial prominence at the lung bases, and a superimposed areas of patchy infiltrates. No lobar consolidation. 5. Noncalcified pulmonary nodule in the LEFT upper lobe measuring 6 mm, follow-up recommended per the included recommendations. Reference recommendations for pulmonary nodule follow-up: Fleischner Report Guidelines 2017 MacMahon et al, Radiology 2017: https://pubs.rsna.org/doi/pdf/10.1148/radiol.5780808273 Nodule size: <6 mm SOLITARY low-risk: no follow-up needed high-risk: optional CT at 12 months MULTIPLE low-risk: no follow-up needed high-risk: optional CT at 12 months Nodule size: 6-8 mm SOLITARY low-risk: follow-up at 6-12 months, then consider further follow-up at 18-24 months high-risk: initial follow-up CT at 6-12 months and then at 18-24 months if no change MULTIPLE low-risk: follow-up CT at 3-6 months, then consider further follow-up at 18-24 months high-risk: initial follow-up CT at 3-6 months and then at 18-24 months Nodule size: >8 mm SOLITARY either low or high-risk patients consider follow-up CT at 3 months, and/or CT-PET, and/or biopsy MULTIPLE low-risk: follow-up CT at 3-6 months, then consider further follow-up at 18-24 months high-risk: initial follow-up CT at 3-6 months and then at 18-24 months Electronically Signed: Gold Watts MD at 21:44 EDT , CT/CTA Chest W/WO Contrast IMPRESSION: undefined
--- NOTE | 2023-10-23 19:55 | CT_ITS ---
INDICATION: vertigo EXAMINATION: CT BRAIN - CT Head or Brain W/O Contrast Injection TECHNIQUE: Multiple axial images were obtained of the head without intravenous contrast. A radiation dose optimization technique was used for this scan. IV Contrast dosage and agent: None. RADIATION DOSAGE (If Supplied By Facility): CTDIvol = ( 44.99 ) mGy, DLP = ( 745.49 ) mGycm COMPARISON: 04/24/2023 FINDINGS: HEMISPHERES: 1. The cerebral parenchyma, ventricular system, subarachnoid spaces have normal configuration and density. There is a normal gyral pattern. There is normal grubbs/white differentiation. No midline shift.. 2. Diffuse involutional change and chronic microvascular deep white matter disease. 3. No intraparenchymal mass, hemorrhage, or acute territorial infarct. CEREBELLUM - BRAINSTEM: The cerebellum, brainstem, basilar and suprasellar cisterns have normal appearance. No Chiari malformation. PITUITARY: Infundibulum and pituitary have normal configuration. Midline structures appear normal. CSF SPACES: Appropriate for age. No hydrocephalus. Basal cisterns are patent. VESSELS: 1. Extensive vascular calcifications in the cavernous carotid vessels. 2. No hyperdense vascular signs noted.. ORBITS AND PARANASAL SINUSES: 1. Normal appearance of the bony orbits. Normal appearance of the globes and retrobulbar soft tissues.. 2. Paranasal sinuses are clear. BONY ELEMENTS: Bony elements of the cranial vault, facial skeleton and skull base have normal appearance. SCALP AND SOFT TISSUES: Normal appearance of the soft tissues of the scalp and the visualized face OTHER: None ASPECTS Score for Acute Strokes: 10 CT/Brain/Head without Contrast IMPRESSION: 1. Stable exam. 2. Diffuse involutional change and chronic microvascular deep white matter disease. 3. No intracranial mass, hemorrhage or acute territorial infarct. 4. No radiographically significant sinus disease.. Electronically Signed: Gold Watts MD at 21:17 EDT ,
[2023-10-23 20:11] LABS: Absolute Lymphocyte Count 0.95 X10^3/uL (0.83-4.51); Absolute Neutrophil Count 7.6 X10^3/uL (2.0-7.7); Basophil# 0.01 X10^3/uL; Basophil% 0.1 % (0-1); Eosinophil# 0.01 X10^3/uL; Eosinophils% 0.1 % (0-5); Hematocrit 36.8 % (37-47); Hemoglobin 12.1 g/dL (12.0-15.0); Lymphocyte # 0.95 X10^3/ul (0.83-4.51); Lymphocyte % 10.1 % (19-41); Mean Corp Hgb Conc 32.9 g/dL (32-36); Mean Corpuscular Hgb 30.4 pg (27.0-32.0); Mean Corpuscular Volume 92.5 fL (81-99); Mean Platelet Vol. 10.5 fl (6.2-12.0); Monocyte# 0.79 X10^3/uL; Monocyte% 8.4 % (0-10); NRBC Flagged by Analyzer 0 % (0-5); Neutrophil # 7.62 X10^3/uL (2.7-7.7); Platelet Count 220 K/mm3 (150-450); RBC Distribution Width CV 14.3 % (11.6-14.6); Red Blood Count 3.98 M/mm3 (4.2-5.4); White Blood Count 9.4 K/mm3 (4.4-11.0)
[2023-10-23 20:25] LABS: Anion Gap 8 (5-15); BUN 12 mg/dL (7-18); BUN/Creat Ratio 15.5 RATIO (10-20); Calcium,Total 8.7 mg/dL (8.5-10.1); Chloride 100 mmol/L (98-107); Creatinine, Serum 0.78 mg/dL (0.55-1.02); EST Glomerular Filtration Rate 76 mL/min (>60); Est Glom Filt Rate - Afr Amer 91 mL/min (>60); Estimated Creatinine Clearance 47.21 ml/min; Glucose 102 mg/dL (74-106); Potassium 3.4 mmol/L (3.5-5.1); Sodium Level 135 mmol/L (136-145)
[2023-10-23] MEDS: Oseltamivir Phosphate 75 MG Capsule PO (22:16)
[2023-10-23] MEDS: levoFLOXacin IV 750 MG/150 ML BAG 100 MG IV (22:16)
--- NOTE | 2023-10-23 22:48 | HP.PCM.HOS_ITS ---
[facility] - General General Date of Admission: 10/23/23 Date of Service: 10/23/23 Chief Complaint: Cough with Green Sputum and Intermittent Vertigo x ~2 weeks. [facility] Narrative JAIMIE TORRES, is a 83 F with a past medical history of essential hyper tension, CAD; s/p NSTEMI (2022), history of pneumonia, history of polymyositis, KAY, depression, GERD and OA who presents to [facility] ER complaining of cough with green sputum and intermittent vertigo. Ms. Torres reports her symptoms began approximately two weeks prior to admission with the gradual onset of progressively worsening chest congestion with cough productive of green sputum. She also admits to associated vertigo that is worse in the mornings when she first wakes up and tends to improve throughout the day but her cough seems to make her disequilibrium worse and she does admit to multiple minor falls recently -but she denies significant injury associated with her falls. She states subjective fever but she denies associated dyspnea, chest pain, hemoptysis, earache, paresthesias or other focal neurologic deficits. In the ER her CTA of the chest was positive for patchy bilateral lower lobe infiltrates consistent with suspected bacterial pneumonia superinfection with viral assay positive for influenza A complicated by clinical evidence of acute hypoxic respiratory insufficiency with patient saturating 87% on room air compounded by BPPV with increasing falls due to disequilibrium and ambulatory dysfunction with Hypokalemia of 3.4 mmol/L present on admission and she was then admitted to the general medical floor under contact and droplet precautions for ongoing care for stay that is expected to be greater than 48 hours. [facility] Medical History (Updated 10/24/23 @ 02:[address] Luis Velez, ) Atherosclerotic heart disease of [place] coronary artery without angina pectoris (06/21/23) Bronchitis Elevated liver enzymes FHx: cholecystectomy Hypertension NSTEMI (non-ST elevated myocardial infarction) (06/21/23) Polymyositis Right rib fracture Home Medications benzonatate 100 mg capsule 100 mg PO TID PRN cough 06/20/23 [History Last Taken Unknown] escitalopram oxalate 20 mg tablet 20 mg PO DAILY 06/20/23 [History Last Taken Unknown] omeprazole 40 mg capsule,delayed release 40 mg PO DAILY 06/20/23 [History Last Taken Unknown] prednisone 10 mg tablet 10 mg PO DAILY 06/20/23 [History Last Taken Unknown] ferrous gluconate 324 mg (37.5 mg iron) tablet 324 mg PO QODAY 30 days #30 tabs 06/23/23 [Rx Last Taken Unknown] amlodipine 10 mg tablet 2.5 mg PO DAILY 10/23/23 [History Last Taken Unknown] methotrexate sodium 2.5 mg tablet 2.5 mg PO DAILY 10/23/23 [History Last Taken Unknown] Allergy/AdvReac Type Severity Reaction Status Date / Time azithromycin Allergy Hives Verified 10/23/23 17:48 erythromycin base Allergy Hives Verified 10/23/23 17:48 codeine AdvReac Upset Verified 10/23/23 17:48 Stomach Social History household members: spouse Smoking Status: Former smoker substance use type: does not use ROS ROS Narrative Review of systems: General: Patient denies fevers or chills. HENT: Patient reports nasal congestion and vertigo but denies headache, ear pain or tinnitus. EYES: Denies changes in vision or discharge from eyes. Resp: Patient admits to increasingly frequent cough productive of green sputum as per HPI. Cardiac: Denies chest pain or palpitations. GI: Denies abdominal pain, denies changes in bowel, denies vomiting or nausea : Denies changes in urination Extremity: Denies swelling Musculoskeletal: Feels somewhat generally weak and unwell Neuro: Denies headache, paresthesias or focal neurologic deficits but does admit to intermittent dizziness most pronounced in the morning and made worse with movement as per HPI. Heme: Denies any bleeding or bruising Skin: Denies rashes Psychiatric: No complaints voiced related to uncontrolled depression or anxiety. Endocrine: No polyuria, polydipsia or polyphagia. The rest of the 14 point ROS was negative except for positives in HPI. Vital Signs Vital Signs Vital Signs: 10/23/23 17:48 10/23/23 17:49 10/23/23 18:30 Temperature 97.7 F L 97.7 F L Temperature Source Temporal Temporal Pulse Rate 88 88 Respiratory Rate 18 18 Respiratory Effort Normal Non-Labored Respiratory Depth Normal Respiratory Pattern Normal Blood Pressure 91/76 91/76 Blood Pressure Mean 81 81 Pulse Ox 93 93 Oxygen Delivery Method Room Air Room Air Room Air Oxygen Flow Rate (L/min) 10/23/23 18:49 10/23/23 19:56 10/23/23 19:58 Temperature 98.8 F 97.8 F Temperature Source Temporal Temporal Pulse Rate 70 74 Respiratory Rate 18 19 H Respiratory Effort Respiratory Depth Respiratory Pattern Blood Pressure 104/62 115/72 Blood Pressure Mean 76 86 Pulse Ox 88 94 93 Oxygen Delivery Method Room Air Nasal Cannula Nasal Cannula Oxygen Flow Rate (L/min) 2 2 10/23/23 19:58 10/23/23 20:58 10/23/23 21:00 Temperature 97.9 F 98.2 F Temperature Source Temporal Oral Pulse Rate 74 78 77 Respiratory Rate 19 H 19 H Respiratory Effort Respiratory Depth Respiratory Pattern Blood Pressure 110/101 H 103/92 H Blood Pressure Mean 104 95 Pulse Ox 94 92 Oxygen Delivery Method Nasal Cannula Nasal Cannula Oxygen Flow Rate (L/min) 2 2 10/23/23 22:12 10/23/23 22:00 Temperature 97.9 F 97.9 F Temperature Source Temporal Pulse Rate 79 76 Respiratory Rate 20 H 19 H Respiratory Effort Respiratory Depth Respiratory Pattern Blood Pressure 122/70 H 122/78 H Blood Pressure Mean 87 92 Pulse Ox 93 93 Oxygen Delivery Method Nasal Cannula Oxygen Flow Rate (L/min) 2 Weight Weight: 145 lb 15.136 oz Body Mass Index (BMI) 27.6 Physical Exam Const alert, oriented x3, no apparent distress and average body habitus General Appearance: cooperative HEENT normocephalic, head/scalp atraumatic, hearing grossly normal bilaterally and moist oral mucous membranes Eyes PERRL and EOMs intact bilaterally Neck no lymphadenopathy and supple Resp Resp Narrative: Diminished breath sounds throughout with scattered coarse rhonchi. Cardio regular rate and regular rhythm GI normal to inspection, nondistended, normoactive bowel sounds, soft to palpation, non-tender and non-distended Extremity normal to inspection and full ROM Skin Skin Narrative: Patient has no evidence of rash or abscess. Neuro oriented x3, CN's II-XII intact bilaterally, moves all extremities and no focal motor deficits Sensorium / Orientation: awake, alert, oriented to person, oriented to place and oriented to time Speech: speech normal Psych affect normal Results Medical Records Data Attestation: I reviewed the patient's medical records Lab / Micro Data Attestation: I reviewed the patient's lab results. 10/23/23 19:52 10/23/23 19:52 Labs: Laboratory Results - last 24 hr 10/23/23 19:52: WBC 9.4, RBC 3.98 L, Hgb 12.1, Hct 36.8 L, MCV 92.5, MCH 30.4, MCHC 32.9, RDW Std Deviation 48.0 H, RDW Coeff of Juanito 14.3, Plt Count 220, MPV 10.5, Immature Gran % (Auto) 0.300, Neut % (Auto) 81.0 H, Lymph % (Auto) 10.1 L, [place] % (Auto) 8.4, Eos % (Auto) 0.1, Baso % (Auto) 0.1, Absolute Neuts (auto) 7.6, Absolute Lymphs (auto) 0.95, Nucleated RBC % 0, Sodium 135 L, Potassium 3.4 L, Chloride 100, Carbon Dioxide 27.0, Anion Gap 8, BUN 12, Creatinine 0.78, Estim Creat Clear Calc 47.21, Est GFR (MDRD) Af Amer 91, Est GFR (MDRD) Non-Af 76, BUN/Creatinine Ratio 15.5, Glucose 102, Calcium 8.7 Micro: Microbiology 10/23/23 18:30 Mucosa - Nose SARS-CoV-2, Influenza & RSV (PCR) - Final Influenzae A Rhythm Strip Rhythm Strip: Sinus Rhythm Rate: 76 Ectopy: None Imaging Radiology Impression Chest X-Ray 10/23/23 18:40 IMPRESSION: 1. Chronic interstitial changes at the lung bases, elevation of the RIGHT hemidiaphragm. 2. No evidence of congestive failure, consolidation or effusion. Electronically Signed: Gold Watts MD at 19:24 EDT , Chest CTA 10/23/23 19:53 IMPRESSION: undefined Brain CT 10/23/23 19:55 IMPRESSION: 1. Stable exam. 2. Diffuse involutional change and chronic microvascular deep white matter disease. 3. No intracranial mass, hemorrhage or acute territorial infarct. 4. No radiographically significant sinus disease.. Electronically Signed: Gold Watts MD at 21:17 EDT , Assessment & Plan Assessment/Plan (1) Influenza A: (2) Pneumonia of both lower lobes: QUALIFIERS: Pneumonia type: due to unspecified organism Qualified Code(s): J18.9 - Pneumonia, unspecified organism (3) Respiratory insufficiency: (4) Vertigo: (5) Ambulatory dysfunction: (6) Hypokalemia: PLAN: Plan 1. Acute influenza A - Admit to general medical floor under contact and droplet precautions. Continue Tamiflu 75 mg p.o. twice daily began in the ER to complete a 5-day course. Give Tylenol as needed pain or fever. 2. Bibasilar bacterial pneumonia superinfection suspected on CT with green sputum production x 2 weeks complicating #1 - Resume antibiotic treatment with IV doxycycline and IV Rocephin with allergy to Azithromycin. IV Levaquin will be stopped due to increased risk of quinolone tendinopathy with combination of steroids and Levaquin in elderly patients. 3. Acute hypoxic respiratory insufficiency arising from #1 & #2 - Wean supplemental oxygen as tolerated. 4. BPPV; with increasing falls due to disequilibrium and ambulatory dysfunction attributable to #1 - #3 - Give Antivert as needed. PT/OT and case management consult and treat for further recommendations without appreciated in advance. 5. Hypokalemia of 3.4 mmol/L present on admission - Give supplemental potassium chloride and then recheck level in the a.m. to ensure improvement. 6. Essential hypertension - Continue home medications plus give as needed IV hydralazine for systolic blood pressure greater than 160 mmHg. 7. CAD; s/p NSTEMI (2022) - Stable. 8. History of pneumonia - Noted. 9. History of polymyositis; on Prednisone and MTX - Stable. Continue home regimen to prevent flare. 10. KAY - Continue current iron supplementation regimen. 11. Depression - Resume home medications as previous. 12. GERD - Continue PPI. 13. OA - Stable. Give Tylenol as needed. 14. DVT prophylaxis - Lovenox 40 mg sq daily. Total time: Approximately 55 minutes. Charges/Coding Visit Charges Inpatient E&M: 35381 Init Hosp L2
[2023-10-23 23:29] LABS: CPK Total, Creatine Kinase 365 U/L (26-192)
[2023-10-24] VITALS (9 sets, daily range): BP systolic 93–112; BP diastolic 56–76; PULSE 65–84; RESP 15–20; TEMP 36.3–36.9; O2SAT 94–97; BMI 26.9
[2023-10-24] MEDS: Doxycycline 100 MG in Dextrose 5%-Water (250mL Bag) 250 ML 250 MG IV ×3 (00:49→22:23)
[2023-10-24 07:16] LABS: Absolute Lymphocyte Count 1.15 X10^3/uL (0.83-4.51); Absolute Neutrophil Count 6.5 X10^3/uL (2.0-7.7); Basophil# 0.02 X10^3/uL; Basophil% 0.2 % (0-1); Hematocrit 33.6 % (37-47); Hemoglobin 10.9 g/dL (12.0-15.0); Lymphocyte # 1.15 X10^3/ul (0.83-4.51); Lymphocyte % 13.5 % (19-41); Mean Corp Hgb Conc 32.4 g/dL (32-36); Mean Corpuscular Hgb 29.7 pg (27.0-32.0); Mean Corpuscular Volume 91.6 fL (81-99); Mean Platelet Vol. 10.8 fl (6.2-12.0); Monocyte# 0.79 X10^3/uL; Monocyte% 9.2 % (0-10); NRBC Flagged by Analyzer 0 % (0-5); Neutrophil # 6.52 X10^3/uL (2.7-7.7); Neutrophil % 76.3 % (47-70); Platelet Count 205 K/mm3 (150-450); RBC Distribution Width CV 14.1 % (11.6-14.6); RBC Distribution Width SD 47.2 fl (35.1-43.9); Red Blood Count 3.67 M/mm3 (4.2-5.4); White Blood Count 8.6 K/mm3 (4.4-11.0)
[2023-10-24 08:09] LABS: AST(SGOT) 34 U/L (15-37); Alanine Aminotransfer ALT/SGPT 20 U/L (13-56); Albumin, Serum 3.2 g/dL (3.2-5.0); Alkaline Phosphatase 42 U/L (45-117); Anion Gap 10 (5-15); BUN 11 mg/dL (7-18); BUN/Creat Ratio 18.6 RATIO (10-20); Calcium,Total 8.5 mg/dL (8.5-10.1); Chloride 101 mmol/L (98-107); Creatinine, Serum 0.59 mg/dL (0.55-1.02); EST Glomerular Filtration Rate 103 mL/min (>60); Est Glom Filt Rate - Afr Amer 125 mL/min (>60); Estimated Creatinine Clearance 46.73 ml/min; Globulin 3.3 g/dL (2.2-4.2); Glucose 87 mg/dL (74-106); Potassium 3.1 mmol/L (3.5-5.1); Protein, Total 6.5 g/dL (6.4-8.2); Sodium Level 135 mmol/L (136-145)
[2023-10-24] MEDS: predniSONE 10 MG Tablet PO (08:28)
--- NOTE | 2023-10-24 08:54 | RAD_ITS ---
STUDY: X-RAY CHEST REASON FOR EXAM: Female, 83 years old. Pneumonia-486 TECHNIQUE: PA and lateral views of the chest. COMPARISON: Comparison is made with prior study October 23, 2023. FINDINGS: Stable elevation of the right hemidiaphragm. Stable increased markings in the right upper lobe as well as in the left lower lobe and left upper lobe in keeping with scarring. There has been essentially no change. There is no demonstrated pleural abnormality. Normal size heart. Normal mediastinum and herb. Normal visualized pulmonary arteries. There is atherosclerotic calcification of the aortic arch with tortuosity. There are diffuse degenerative changes of the visualized thoracic spine. Increased kyphosis. Normal visualized ribs, clavicles, and shoulders. There is no demonstrated abnormality of the visualized soft tissue structures of the upper abdomen. RAD/Chest PA and Lateral IMPRESSION: Stable examination. Electronically Signed: Rocky Greer MD at 12:41 EDT ,
--- NOTE | 2023-10-24 09:18 | PCM.PN.HOSP ---
Subjective Subjective Doing well, no issues overnight. Says that she is breathing a little bit better Objective Data Objective Data Vital Signs: Vital Signs Temp Pulse Resp BP Pulse Ox O2 Del Method O2 Flow Rate 98.4 F 74 20 H 103/56 L 96 Nasal Cannula 2 10/24/23 08:25 10/24/23 08:25 10/24/23 08:25 10/24/23 08:25 10/24/23 08:25 10/24/23 08:30 10/24/23 08:30 Oxygen Flow Rate (L/min) 2 Oxygen Delivery Method Nasal Cannula Weight: 142 lb 13.753 oz Body Mass Index (BMI) 26.9 Intake & Output: Intake and Output for Last 24 Hours 10/23/23 10/24/23 10/25/23 03:59 03:59 03:59 Intake Total 150 / 150 Balance 150 / 150 Lab / Micro Data 10/24/23 06:17 10/24/23 06:17 Labs: Laboratory Results - last 24 hr 10/23/23 19:52: WBC 9.4, RBC 3.98 L, Hgb 12.1, Hct 36.8 L, MCV 92.5, MCH 30.4, MCHC 32.9, RDW Std Deviation 48.0 H, RDW Coeff of Juanito 14.3, Plt Count 220, MPV 10.5, Immature Gran % (Auto) 0.300, Neut % (Auto) 81.0 H, Lymph % (Auto) 10.1 L, [place] % (Auto) 8.4, Eos % (Auto) 0.1, Baso % (Auto) 0.1, Absolute Neuts (auto) 7.6, Absolute Lymphs (auto) 0.95, Nucleated RBC % 0, Sodium 135 L, Potassium 3.4 L, Chloride 100, Carbon Dioxide 27.0, Anion Gap 8, BUN 12, Creatinine 0.78, Estim Creat Clear Calc 47.21, Est GFR (MDRD) Af Amer 91, Est GFR (MDRD) Non-Af 76, BUN/Creatinine Ratio 15.5, Glucose 102, Calcium 8.7, Total Creatine Kinase 365 H 10/24/23 06:17: WBC 8.6, RBC 3.67 L, Hgb 10.9 L, Hct 33.6 L, MCV 91.6, MCH 29.7, MCHC 32.4, RDW Std Deviation 47.2 H, RDW Coeff of Juanito 14.1, Plt Count 205, MPV 10.8, Immature Gran % (Auto) 0.800, Neut % (Auto) 76.3 H, Lymph % (Auto) 13.5 L, [place] % (Auto) 9.2, Eos % (Auto) 0.0, Baso % (Auto) 0.2, Absolute Neuts (auto) 6.5, Absolute Lymphs (auto) 1.15, Nucleated RBC % 0, Sodium 135 L, Potassium 3.1 L, Chloride 101, Carbon Dioxide 24.0, Anion Gap 10, BUN 11, Creatinine 0.59, Estim Creat Clear Calc 46.73, Est GFR (MDRD) Af Amer 125, Est GFR (MDRD) Non-Af 103, BUN/Creatinine Ratio 18.6, Glucose 87, Calcium 8.5, Total Bilirubin 0.40, AST 34, ALT 20, Alkaline Phosphatase 42 L, Total Protein 6.5, Albumin 3.2, Globulin 3.3, Albumin/Globulin Ratio 1.0 Micro: Microbiology 10/23/23 18:30 Mucosa - Nose SARS-CoV-2, Influenza & RSV (PCR) - Final Influenzae A 10/24/23 03:25 Urine, Clean Catch Legionella Antigen - Final 10/24/23 03:25 Urine, Clean Catch Streptococcus pneumoniae Antigen (M - Final Radiography Diagnostic Testing: Radiology Impression Chest X-Ray 10/23/23 18:40 IMPRESSION: 1. Chronic interstitial changes at the lung bases, elevation of the RIGHT hemidiaphragm. 2. No evidence of congestive failure, consolidation or effusion. Electronically Signed: Gold Watts MD at 19:24 EDT , Chest CTA 10/23/23 19:53 IMPRESSION: undefined Brain CT 10/23/23 19:55 IMPRESSION: 1. Stable exam. 2. Diffuse involutional change and chronic microvascular deep white matter disease. 3. No intracranial mass, hemorrhage or acute territorial infarct. 4. No radiographically significant sinus disease.. Electronically Signed: Gold Watts MD at 21:17 EDT , Rhythm Strip Rhythm Strip: Sinus Rhythm Rate: 76 Ectopy: None Physical Exam Narrative General: Alert, Oriented x3, Cooperative, No apparent distress HEENT: Atraumatic, PERRLA, EOMI, Normocephalic Oral: Moist Mucosa Neck: Supple, No JVD Lungs: Diminished, Normal air movement, No rhonchi, No wheeze, No rales Cardiovascular: Regular rate, Regular Rhythm, Normal S1, Normal S2, No murmurs Abdomen: Soft, Non Tender, Non-Distended, No Hepato-splenomegaly Extremities: No edema, Capillary Refill Less than 3 Seconds Skin: No rashes, No breakdown Musculoskeletal: No Tenderness to Palpation of Joints or Extremities Neurological: No focal neurological deficits, Motor Exam 5/5 strength throughout, Sensory exam intact to light touch and pain Psych/Mental Status: Normal Affect, Appropriate Assessment & Plan Assessment/Plan (1) Influenza A: (2) Pneumonia of both lower lobes: QUALIFIERS: Pneumonia type: due to unspecified organism Qualified Code(s): J18.9 - Pneumonia, unspecified organism (3) Respiratory insufficiency: (4) Vertigo: (5) Ambulatory dysfunction: (6) Hypokalemia: PLAN: Plan 1. Hypoxia secondary to bacterial pneumonia after influenza A ? Symptoms started 2 weeks ago so we will discontinue Tamiflu ? Continue with antibiotics ? Sputum culture is pending 2. Essential HTN/CAD ? Blood pressure stable ? Continue with her home medications ? Monitor make adjustments as necessary 3. Polymyositis ? Continue on methotrexate and prednisone ? Will monitor ? Disease progression does appear to be stable at this time 4. Iron deficiency anemia ? Stable ? Continue with supplement 5. GERD ? Stable ? Continue with PPI 6. Anxiety/depression ? Stable ? Continue with escitalopram DVT: Lovenox Charges/Coding Visit Charges Inpatient E&M: 37421 Subs Hosp L2
[2023-10-24] MEDS: 0.9% Saline Lock 10 ML Syringe IV ×2 (10:37→13:14)
[2023-10-24] MEDS: Escitalopram Oxalate 20 MG Tablet PO (10:41)
[2023-10-24] MEDS: guaiFENesin 1,200 MG Tablet 1200 MG PO ×2 (10:41→22:20)
[2023-10-24] MEDS: Pantoprazole Sodium 40 MG Tablet PO (10:41)
[2023-10-24] MEDS: Ceftriaxone 1 GM/50 ML BAG IV (10:42)
--- NOTE | 2023-10-24 11:10 | CASEMGMT ---
REA JETT Assessment Face to Face with patient for initial transition planning/care coordination assessment. REA JETT introduced self and role at [facility], pt voices understanding. Pt is A&Ox4 and is resting comfortably in bed and is calm. Care providers, pharmacy, and demographics verified. Admitting dx: Acute Influenza A with Bacterial Pneumonia PCP: Gabriel Specialists: Talita (Cardio), Kevin (GI) Preferred Pharmacy: [facility] Insurance: [employer] [facility] Prescription Benefit: Yes LNOK: Coello Lorenza (H), Jovani Hidalgo (friend) Living Arrangements: Pt lives with her and 27 y/o GD in a ranch home with a BM with HR and 3 steps to enter with a HR ADLs/IADLs: Ind Transportation: , GD DME: Cane and walker at home but does not use. Shower GB. BP Cuff. Pt is on 2L O2 now. Pt denies home O2 use. A verbal list of local in-network DME companies provided to the pt at this time. Pt chose [employer] for potential home going oxygen needs. CM to follow. HHC/SNF: Denies history or needs. Pt?s goal: Home no needs. Plan: Pt denies the need for OP therapy or HHC. Pt states that she wants to go home at time of DC and feels safe doing so. CM to follow for potential oxygen needs. Sobia Gordillo RN, CM
[2023-10-24] MEDS: Benzonatate 100 MG Capsule PO (16:32)
[2023-10-24] MEDS: Acetaminophen 500 MG Tablet 1000 MG PO (22:21)
[2023-10-25 03:30] VITALS: BP 122/64; PULSE 55; RESP 15; TEMP 36.5; O2SAT 95
[2023-10-25 07:40] LABS: Absolute Lymphocyte Count 1.65 X10^3/uL (0.83-4.51); Basophil# 0.02 X10^3/uL; Basophil% 0.4 % (0-1); Eosinophil# 0.01 X10^3/uL; Eosinophils% 0.2 % (0-5); Hematocrit 36.5 % (37-47); Hemoglobin 11.8 g/dL (12.0-15.0); Lymphocyte # 1.65 X10^3/ul (0.83-4.51); Lymphocyte % 30.8 % (19-41); Mean Corp Hgb Conc 32.3 g/dL (32-36); Mean Corpuscular Hgb 30.1 pg (27.0-32.0); Mean Corpuscular Volume 93.1 fL (81-99); Mean Platelet Vol. 10.5 fl (6.2-12.0); Monocyte# 0.62 X10^3/uL; Monocyte% 11.6 % (0-10); NRBC Flagged by Analyzer 0 % (0-5); Neutrophil # 3.01 X10^3/uL (2.7-7.7); Neutrophil % 56.3 % (47-70); Platelet Count 194 K/mm3 (150-450); RBC Distribution Width SD 47.5 fl (35.1-43.9); Red Blood Count 3.92 M/mm3 (4.2-5.4); White Blood Count 5.4 K/mm3 (4.4-11.0)
[2023-10-25 07:56] VITALS: O2SAT 95
[2023-10-25 08:01] LABS: Anion Gap 5 (5-15); BUN 14 mg/dL (7-18); BUN/Creat Ratio 19.3 RATIO (10-20); Calcium,Total 9.1 mg/dL (8.5-10.1); Chloride 103 mmol/L (98-107); Creatinine, Serum 0.73 mg/dL (0.55-1.02); EST Glomerular Filtration Rate 81 mL/min (>60); Est Glom Filt Rate - Afr Amer 99 mL/min (>60); Estimated Creatinine Clearance 46.73 ml/min; Glucose 100 mg/dL (74-106); Sodium Level 136 mmol/L (136-145)
[2023-10-25] MEDS: Ferrous Gluconate 324 MG Tablet PO (08:04)
[2023-10-25] MEDS: predniSONE 10 MG Tablet PO (08:04)
--- NOTE | 2023-10-25 09:15 | PCM.PN.HOSP ---
Subjective Subjective Doing well, feels much better today. Objective Data Objective Data Vital Signs: Vital Signs Temp Pulse Resp BP Pulse Ox O2 Del Method O2 Flow Rate 97.7 F L 55 L 15 122/64 H 95 Nasal Cannula 1.5 10/25/23 03:30 10/25/23 03:30 10/25/23 03:30 10/25/23 03:30 10/25/23 07:56 10/25/23 08:06 10/25/23 08:06 Oxygen Flow Rate (L/min) 1.5 Oxygen Delivery Method Nasal Cannula Weight: 142 lb 13.753 oz Body Mass Index (BMI) 26.9 Intake & Output: Intake and Output for Last 24 Hours 10/24/23 10/25/23 10/26/23 03:59 03:59 03:59 Intake Total 410 / 410 1470 / 1470 Output Total 450 / 450 Balance 410 / 410 1020 / 1020 Lab / Micro Data 10/25/23 07:11 10/25/23 07:11 Labs: Laboratory Results - last 24 hr 10/25/23 07:11: WBC 5.4, RBC 3.92 L, Hgb 11.8 L, Hct 36.5 L, MCV 93.1, MCH 30.1, MCHC 32.3, RDW Std Deviation 47.5 H, RDW Coeff of Juanito 14.0, Plt Count 194, MPV 10.5, Immature Gran % (Auto) 0.700, Neut % (Auto) 56.3, Lymph % (Auto) 30.8, [place] % (Auto) 11.6 H, Eos % (Auto) 0.2, Baso % (Auto) 0.4, Absolute Neuts (auto) 3.0, Absolute Lymphs (auto) 1.65, Nucleated RBC % 0, Sodium 136, Potassium 3.0 L, Chloride 103, Carbon Dioxide 28.0, Anion Gap 5, BUN 14, Creatinine 0.73, Estim Creat Clear Calc 46.73, Est GFR (MDRD) Af Amer 99, Est GFR (MDRD) Non-Af 81, BUN/Creatinine Ratio 19.3, Glucose 100, Calcium 9.1 Micro: Microbiology 10/23/23 18:30 Mucosa - Nose SARS-CoV-2, Influenza & RSV (PCR) - Final Influenzae A 10/24/23 03:25 Urine, Clean Catch Legionella Antigen - Final 10/24/23 03:25 Urine, Clean Catch Streptococcus pneumoniae Antigen (M - Final Radiography Diagnostic Testing: Radiology Impression Chest X-Ray 10/24/23 08:54 IMPRESSION: Stable examination. Electronically Signed: Rocky Greer MD at 12:41 EDT , Rhythm Strip Rhythm Strip: Sinus Rhythm Rate: 76 Ectopy: None Physical Exam Narrative General: Alert, Oriented x3, Cooperative, No apparent distress HEENT: Atraumatic, PERRLA, EOMI, Normocephalic Oral: Moist Mucosa Neck: Supple, No JVD Lungs: Diminished, Normal air movement, No rhonchi, No wheeze, No rales Cardiovascular: Regular rate, Regular Rhythm, Normal S1, Normal S2, No murmurs Abdomen: Soft, Non Tender, Non-Distended, No Hepato-splenomegaly Extremities: No edema, Capillary Refill Less than 3 Seconds Skin: No rashes, No breakdown Musculoskeletal: No Tenderness to Palpation of Joints or Extremities Neurological: No focal neurological deficits, Motor Exam 5/5 strength throughout, Sensory exam intact to light touch and pain Psych/Mental Status: Normal Affect, Appropriate Assessment & Plan Assessment/Plan (1) Influenza A: (2) Pneumonia of both lower lobes: QUALIFIERS: Pneumonia type: due to unspecified organism Qualified Code(s): J18.9 - Pneumonia, unspecified organism (3) Respiratory insufficiency: (4) Vertigo: (5) Ambulatory dysfunction: (6) Hypokalemia: PLAN: Plan 1. Hypoxia secondary to bacterial pneumonia after influenza A ? Symptoms started 2 weeks ago so we will discontinue Tamiflu ? Continue with antibiotics ? Sputum culture is pending ? Will obtain an ambulatory pulse ox today 2. Essential HTN/CAD ? Blood pressure stable ? Continue with her home medications ? Monitor make adjustments as necessary 3. Polymyositis ? Continue on methotrexate and prednisone ? Will monitor ? Disease progression does appear to be stable at this time 4. Iron deficiency anemia ? Stable ? Continue with supplement 5. GERD ? Stable ? Continue with PPI 6. Anxiety/depression ? Stable ? Continue with escitalopram DVT: Lovenox Charges/Coding Visit Charges Inpatient E&M: 26044 Subs Hosp L2
[2023-10-25] MEDS: 0.9% Saline Lock 10 ML Syringe IV ×2 (09:34→14:18)
[2023-10-25] MEDS: amLODIPine 2.5 MG Tablet PO (09:34)
[2023-10-25] MEDS: guaiFENesin 1,200 MG Tablet 1200 MG PO (09:34)
[2023-10-25] MEDS: Escitalopram Oxalate 20 MG Tablet PO (09:34)
[2023-10-25] MEDS: Pantoprazole Sodium 40 MG Tablet PO (09:34)
[2023-10-25] MEDS: Ceftriaxone 1 GM/50 ML BAG IV (09:35)
[2023-10-25] MEDS: Doxycycline 100 MG in Dextrose 5%-Water (250mL Bag) 250 ML 250 MG IV (10:31)
[2023-10-25 10:36] VITALS: O2SAT 95
--- NOTE | 2023-10-25 11:20 | CASEMGMT ---
Pt does not qualify for home oxygen.
--- NOTE | 2023-10-25 12:10 | CASEMGMT ---
Social Work SW met with pt to discuss advance directives.? Pt confirms she has completed a living will and health care POA naming her Mode Britt.? Pt notified that documents are not on file at [facility] and SW requested they be brought in for scanning into the EMR.? CINDA Rucker
--- NOTE | 2023-10-25 12:58 | DCINST_ITS ---
Discharge Instructions Diet Discharge Diet: Low fat / Low cholesterol Activity Discharge Activity: Return to Normal Activity Dressing / Incision Call your doctor if you observe: Fever of 101 or Higher, Shortness of breath, Dizziness, Fainting spells, Swelling in the ankles, Chest pain and Increased palpitations (irregular heartbeat) Follow Up Care Test Results: Test results from this visit will be discussed in further detail at your follow- up appointment, if applicable. Discharge Plan Admission Admit Date/Time: 10/23/23 23:02 Attending Provider: Sebastien Pichardo Primary Care Provider: Dewayne Rios Consulting Providers: Luis Velez Discharge Orders/Prescriptions Prescriptions: New cefdinir 300 mg capsule 300 mg PO BID 5 Days Qty: 10 0RF doxycycline monohydrate 100 mg capsule 100 mg PO BID 5 Days Qty: 10 0RF Continued escitalopram oxalate 20 mg tablet 20 mg PO DAILY omeprazole 40 mg capsule,delayed release(DR/EC) 40 mg PO DAILY prednisone 10 mg tablet 10 mg PO DAILY benzonatate 100 mg capsule 100 mg PO TID PRN (Reason: cough) ferrous gluconate 324 mg (37.5 mg iron) Tablet 324 mg PO QODAY 30 Days Qty: 30 0RF methotrexate sodium 2.5 mg tablet 2.5 mg PO DAILY amlodipine 10 mg tablet 2.5 mg PO DAILY Rx Instructions: Hold for SBP less than 120 mmHg Referrals / Follow Up: Dewayne Rios MD [Primary Care Provider] - Within 1 Week Disposition Disposition (needs filled in before D/C Order can be placed): Home, Self Care
--- NOTE | 2023-10-25 13:55 | DS.PCM_ITS ---
Providers Date of Admission: 10/23/23 Primary Care Physician: Dr. Dewayne Rios MD Reason For Visit: ACUTE INFLUENZA A WITH BACTERIAL PNEUMONIA Diagnosis Discharge Diagnosis (1) Influenza A: Status: Acute Code(s): J10.1 - Influenza due to other identified influenza virus with other respiratory manifestations (2) Pneumonia of both lower lobes: Status: Acute Code(s): J18.9 - Pneumonia, unspecified organism Qualifiers: Pneumonia type: due to unspecified organism Qualified Code(s): J18.9 - Pneumonia, unspecified organism (3) Respiratory insufficiency: Status: Acute Code(s): R06.89 - Other abnormalities of breathing (4) Vertigo: Status: Acute Code(s): R42 - Dizziness and giddiness (5) Ambulatory dysfunction: Status: Acute Code(s): R26.2 - Difficulty in walking, not elsewhere classified (6) Hypokalemia: Status: Acute Code(s): E87.6 - Hypokalemia Medications at Discharge Home Medications benzonatate 100 mg capsule 100 mg PO TID PRN cough 06/20/23 escitalopram oxalate 20 mg tablet 20 mg PO DAILY 06/20/23 omeprazole 40 mg capsule,delayed release 40 mg PO DAILY 06/20/23 prednisone 10 mg tablet 10 mg PO DAILY 06/20/23 ferrous gluconate 324 mg (37.5 mg iron) tablet 324 mg PO QODAY 30 days #30 tabs 06/23/23 amlodipine 10 mg tablet 2.5 mg PO DAILY 10/23/23 methotrexate sodium 2.5 mg tablet 2.5 mg PO DAILY 10/23/23 cefdinir 300 mg capsule 300 mg PO BID 5 days #10 caps 10/25/23 doxycycline monohydrate 100 mg capsule 100 mg PO BID 5 days #10 caps 10/25/23 Hospital Course Operations None Procedures None Summary of Care Provided Minutes Spent on Discharge: 33 Hospital Course: Per HPI: JAIMIE BRITT, is a 83 F with a past medical history of essential hypertension, CAD; s/p NSTEMI (2022), history of pneumonia, history of polymyositis, KAY, depression, GERD and OA who presents to [facility] ER complaining of cough with green sputum and intermittent vertigo. Ms. Britt reports her symptoms began approximately two weeks prior to admission with the gradual onset of progressively worsening chest congestion with cough productive of green sputum. She also admits to associated vertigo that is worse in the mornings when she first wakes up and tends to improve throughout the day but her cough seems to make her disequilibrium worse and she does admit to multiple minor falls recently -but she denies significant injury associated with her falls. She states subjective fever but she denies associated dyspnea, chest pain, hemoptysis, earache, paresthesias or other focal neurologic deficits. In the ER her CTA of the chest was positive for patchy bilateral lower lobe infiltrates consistent with suspected bacterial pneumonia superinfection with viral assay positive for influenza A complicated by clinical evidence of acute hypoxic respiratory insufficiency with patient saturating 87% on room air compounded by BPPV with increasing falls due to disequilibrium and ambulatory dysfunction with Hypokalemia of 3.4 mmol/L present on admission and she was then admitted to the general medical floor under contact and droplet precautions for ongoing care for stay that is expected to be greater than 48 hours. Hospital Course: 1. Hypoxia secondary bacterial infection after influenza A?83-year-old female presented to the hospital with hypoxia. She had gotten sick with an upper respiratory infection about 2 weeks prior to admission when she presented to the hospital looks like she had bilateral lower lobe pneumonia. She did test positive for influenza A at that time however given symptomatology her Tamiflu was discontinued secondary to the course being at least 2 weeks. She was placed on Rocephin and doxycycline secondary to an allergy to azithromycin and she had significant improvement, she will be discharged with 5 days each of cefdinir and doxycycline. Sputum culture is still pending. On the day of discharge she had an ambulatory pulse ox that did not demonstrate a need for any oxygen with ambulation or at rest. I discussed with her the plan for discharge today she expressed understanding of the risk benefits going home and would like to go home today. Of note I did give her a dose potassium on the day of discharge as her potassium was 3.0. 2. Essential hypertension, coronary artery disease, polymyositis, iron deficiency anemia, GERD, anxiety, depression are all chronic medical conditions which complicate her care. Her home medications were continued where raymundo ropriate Physical Exam Narrative General: Alert, Oriented x3, Cooperative, No apparent distress HEENT: Atraumatic, PERRLA, EOMI, Normocephalic Oral: Moist Mucosa Neck: Supple, No JVD Lungs: Diminished, Normal air movement, No rhonchi, No wheeze, No rales Cardiovascular: Regular rate, Regular Rhythm, Normal S1, Normal S2, No murmurs Abdomen: Soft, Non Tender, Non-Distended, No Hepato-splenomegaly Extremities: No edema, Capillary Refill Less than 3 Seconds Skin: No rashes, No breakdown Musculoskeletal: No Tenderness to Palpation of Joints or Extremities Neurological: No focal neurological deficits, Motor Exam 5/5 strength throughout, Sensory exam intact to light touch and pain Psych/Mental Status: Normal Affect, Appropriate Weight / BMI Weight Weight: 142 lb 13.753 oz Body Mass Index (BMI) 26.9 ABG / Lab / Microbiology Data 10/25/23 07:11 10/25/23 07:11 Laboratory: Laboratory Results - last 24 hr 10/25/23 07:11: WBC 5.4, RBC 3.92 L, Hgb 11.8 L, Hct 36.5 L, MCV 93.1, MCH 30.1, MCHC 32.3, RDW Std Deviation 47.5 H, RDW Coeff of Juanito 14.0, Plt Count 194, MPV 10.5, Immature Gran % (Auto) 0.700, Neut % (Auto) 56.3, Lymph % (Auto) 30.8, [place] % (Auto) 11.6 H, Eos % (Auto) 0.2, Baso % (Auto) 0.4, Absolute Neuts (auto) 3.0, Absolute Lymphs (auto) 1.65, Nucleated RBC % 0, Sodium 136, Potassium 3.0 L , Chloride 103, Carbon Dioxide 28.0, Anion Gap 5, BUN 14, Creatinine 0.73, Estim Creat Clear Calc 46.73, Est GFR (MDRD) Af Amer 99, Est GFR (MDRD) Non-Af 81, BUN/Creatinine Ratio 19.3, Glucose 100, Calcium 9.1 Microbiology: Microbiology 10/24/23 16:10 Sputum, Expectorated/Coughed Gram Stain - Final 10/23/23 18:30 Mucosa - Nose SARS-CoV-2, Influenza & RSV (PCR) - Final Influenzae A 10/24/23 03:25 Urine, Clean Catch Legionella Antigen - Final 10/24/23 03:25 Urine, Clean Catch Streptococcus pneumoniae Antigen (M - Final D/C Instructions Discharge Diet: Low fat / Low cholesterol Call your doctor if you observe: Fever of 101 or Higher, Shortness of breath, Dizziness, Fainting spells, Swelling in the ankles, Chest pain and Increased palpitations (irregular heartbeat) Meaningful Use Info Meaningful Use Diagnoses (Choose all that apply): None applicable Discharge Plan Admission Admit Date/Time: 10/23/23 23:02 Primary Reason for Your Visit: PNEUMONIA Attending Provider: Sebastien Pichardo Primary Care Provider: Dewayne Rios Consulting Providers: Luis Velez Discharge Orders/Prescriptions Prescriptions: New cefdinir 300 mg capsule 300 mg PO BID 5 Days Qty: 10 0RF doxycycline monohydrate 100 mg capsule 100 mg PO BID 5 Days Qty: 10 0RF Continued escitalopram oxalate 20 mg tablet 20 mg PO DAILY omeprazole 40 mg capsule,delayed release(DR/EC) 40 mg PO DAILY prednisone 10 mg tablet 10 mg PO DAILY benzonatate 100 mg capsule 100 mg PO TID PRN (Reason: cough) ferrous gluconate 324 mg (37.5 mg iron) Tablet 324 mg PO QODAY 30 Days Qty: 30 0RF methotrexate sodium 2.5 mg tablet 2.5 mg PO DAILY amlodipine 10 mg tablet 2.5 mg PO DAILY Rx Instructions: Hold for SBP less than 120 mmHg Referrals / Follow Up: Dewayne Rios MD [Primary Care Provider] - Within 1 Week Disposition Disposition (needs filled in before D/C Order can be placed): Home, Self Care Charges/Coding Visit Charges Inpatient E&M: 77104 Disch Hosp >30min
--- NOTE | 2023-10-25 13:57 | CASEMGMT ---
REA CM into pt room, pt sitting on eob. Pt denies any need for any services at home. Pt states she has a walker if she needs it. Pt ready for dc.
[2023-10-25] MEDS: Potassium Chloride Oral Tablet 20 MEQ 60 MEQ PO (14:15)
--- NOTE | 2023-10-25 15:02 | PHA.DC_ITS ---
Pharmacy [facility] has performed discharge medication reconciliation and counseling for this patient. Counseled patient via telephone due to droplet precautions. While speaking to patient regarding spacing out doxycycline and ferrous gluconate administration, she said she no longer takes an iron so this was removed from her medication list. 1. CEFDINIR 300MG PO BID X 5 DAYS 2. DOXYCYCLINE 100MG PO BID X 5 DAYS The patient's discharge medication list was reviewed for discrepancies and discrepancies were resolved. The patient was counseled on the following discharge medications and changes in medications for homegoing were reviewed. The Reason for Use, instructions for use, and potential side effects were reviewed for all new medications. The patient's questions regarding all of their medications were answered. The patient was able to verbally demonstrate an understanding of their discharge medications. Medications at Discharge Home Medications benzonatate 100 mg capsule 100 mg PO TID PRN cough 06/20/23 escitalopram oxalate 20 mg tablet 20 mg PO DAILY 06/20/23 omeprazole 40 mg capsule,delayed release 40 mg PO DAILY 06/20/23 prednisone 10 mg tablet 10 mg PO DAILY 06/20/23 amlodipine 10 mg tablet 2.5 mg PO DAILY 10/23/23 methotrexate sodium 2.5 mg tablet 2.5 mg PO DAILY UNKNOWN 10/23/23 cefdinir 300 mg capsule 300 mg PO BID 5 days #10 caps 10/25/23 doxycycline monohydrate 100 mg capsule 100 mg PO BID 5 days #10 caps 10/25/23
== END 2023-10-25 16:33 | disposition home or self-care (01) | DRG 194 ==
LOC: ED 18:17 → MS3 10-24 05:42
PROVIDERS: Admitting Provider Internal Medicine; Emergency Provider Emergency Medicine; PCP Internal Medicine; Referring Provider Internal Medicine; Visit Provider Family Medicine
DX: J10.08 Influenza due to other identified influenza virus with other specified pneumonia (principal); M33.20 Polymyositis, organ involvement unspecified; D50.9 Iron deficiency anemia, unspecified; I10 Essential (primary) hypertension; F32.A Depression, unspecified; M19.90 Unspecified osteoarthritis, unspecified site; E87.6 Hypokalemia; K21.9 Gastro-esophageal reflux disease without esophagitis; I25.10 Atherosclerotic heart disease of native coronary artery without angina pectoris; F41.9 Anxiety disorder, unspecified; H81.10 Benign paroxysmal vertigo, unspecified ear; R09.02 Hypoxemia; Z79.52 Long term (current) use of systemic steroids; Z79.899 Other long term (current) drug therapy; Z87.891 Personal history of nicotine dependence; R26.2 Difficulty in walking, not elsewhere classified; J15.9 Unspecified bacterial pneumonia
CPT/HCPCS: 36415; 70450; 71046; 71275; 80048; 80053; 82550; 85025; 87070; 87205; 87449; 87631; 93005; 94668; 94762; 96365; 96366; 96367; 97802; 99221; 99252; 99285; Q9967; A4216; G0378; G0463

== ENCOUNTER → 2023-11-14 | Outpatient (CLI) | payer MEDICARE, SELFPAY ==
[2023-11-14 15:18] LABS: Absolute Lymphocyte Count 1.63 X10^3/uL (0.83-4.51); Absolute Neutrophil Count 3.4 X10^3/uL (2.0-7.7); Basophil# 0.08 X10^3/uL; Basophil% 1.3 % (0-1); Eosinophil# 0.22 X10^3/uL; Eosinophils% 3.7 % (0-5); Hematocrit 37.7 % (37-47); Lymphocyte # 1.63 X10^3/ul (0.83-4.51); Lymphocyte % 27.1 % (19-41); Mean Corp Hgb Conc 31.8 g/dL (32-36); Mean Corpuscular Hgb 30.5 pg (27.0-32.0); Mean Corpuscular Volume 95.9 fL (81-99); Mean Platelet Vol. 11.3 fl (6.2-12.0); Monocyte# 0.65 X10^3/uL; Monocyte% 10.8 % (0-10); NRBC Flagged by Analyzer 0 % (0-5); Neutrophil # 3.43 X10^3/uL (2.7-7.7); Neutrophil % 56.9 % (47-70); Platelet Count 371 K/mm3 (150-450); RBC Distribution Width CV 15.5 % (11.6-14.6); RBC Distribution Width SD 54.3 fl (35.1-43.9); Red Blood Count 3.93 M/mm3 (4.2-5.4)
[2023-11-14 15:33] LABS: ALB/GLOB Ratio 0.9 RATIO (0.9-2.4); AST(SGOT) 25 U/L (15-37); Alanine Aminotransfer ALT/SGPT 22 U/L (13-56); Albumin, Serum 3.4 g/dL (3.2-5.0); Alkaline Phosphatase 57 U/L (45-117); Anion Gap 5 (5-15); BUN 13 mg/dL (7-18); BUN/Creat Ratio 14.8 RATIO (10-20); Calcium,Total 9.3 mg/dL (8.5-10.1); Chloride 107 mmol/L (98-107); Creatinine, Serum 0.88 mg/dL (0.55-1.02); EST Glomerular Filtration Rate 65 mL/min (>60); Est Glom Filt Rate - Afr Amer 79 mL/min (>60); Globulin 3.8 g/dL (2.2-4.2); Glucose 104 mg/dL (74-106); Potassium 4.3 mmol/L (3.5-5.1); Protein, Total 7.2 g/dL (6.4-8.2); Sodium Level 140 mmol/L (136-145)
== END | disposition home or self-care (01) ==
LOC: MTLAB 11:14
PROVIDERS: PCP Internal Medicine; Referring Provider Internal Medicine Rheumatology; Visit Provider Internal Medicine Rheumatology
DX: L40.59 Other psoriatic arthropathy (principal); Z79.899 Other long term (current) drug therapy
CPT/HCPCS: 36415; 80053; 85025

== ENCOUNTER 2023-11-15 04:59 | Emergency (ER) | payer MEDICARE, SELFPAY ==
[2023-11-15 05:00] VITALS: BP 110/85; PULSE 58; RESP 16; TEMP 36.1; O2SAT 97; BMI 26.2
--- NOTE | 2023-11-15 05:05 | EDS_ITS ---
HPI History of Present Illness Chief Complaint: Laceration Informant: patient Onset/Context/Timing Onset: Today Mechanism/Context: Fall and Trip Quality of Pain: Aching and Burning Location: Forehead Worsened by: Nothing Relieved by: Nothing Associated Symptoms Associated Symptoms: Negative for Parasthesias, Weakness, Loss of function, Inability to ambulate, Loss of consciousness or Amnesia Narrative Narrative: Patient presents with forehead laceration that occurred today. Patient states she tripped over her dogs and fell forward. Patient states she hit her head. Patient denies any loss of consciousness. Patient describes her pain as aching and burning. Patient states nothing makes it better and nothing makes it worse. Patient admits to some pain in her low back as well. Patient denies any paresthesias or weakness. Patient thinks her last tetanus was between 5 and 10 years ago. Tetanus Immunization: 5-10 years [facility] Medical History Atherosclerotic heart disease of [place] coronary artery without angina pectoris (06/21/23) Bronchitis Elevated liver enzymes FHx: cholecystectomy Hypertension NSTEMI (non-ST elevated myocardial infarction) (06/21/23) Polymyositis Right rib fracture Home Medications escitalopram oxalate 20 mg tablet 20 mg PO DAILY 06/20/23 [History Last Taken Unknown] omeprazole 40 mg capsule,delayed release 40 mg PO DAILY 06/20/23 [History Last Taken Unknown] amlodipine 10 mg tablet 2.5 mg PO DAILY 10/23/23 [History Last Taken Unknown] methotrexate sodium 2.5 mg tablet 2.5 mg PO DAILY UNKNOWN 10/23/23 [History Last Taken Unknown] Allergy/AdvReac Type Severity Reaction Status Date / Time azithromycin Allergy Hives Verified 11/15/23 05:00 erythromycin base Allergy Hives Verified 11/15/23 05:00 codeine AdvReac Upset Verified 11/15/23 05:00 Stomach Social History household members: spouse Smoking Status: Former smoker substance use type: does not use ROS ROS ED Constitutional Constitutional ED: Denies chills or fever(s) Eyes Eyes: Denies blurry vision or change in vision ENT ENT ED: Denies rhinorrhea or sore throat Cardiovascular Cardiovascular: Denies chest pain or palpitations Respiratory/Chest Respiratory/Chest: Denies cough or dyspnea Gastrointestinal Gastrointestinal: Denies nausea or vomiting Genitourinary Genitourinary ED: Denies dysuria or hematuria Musculoskeletal Musculoskeletal: Reports back pain; Denies neck pain Integumentary Denies abscess or rash Neurologic Neurologic: Reports headache(s); Denies weakness Allergic/Immunologic Allergic/Immunologic ED: Denies mouth swelling or urticaria EXAM Physical Exam Const Vital Signs: 11/15/23 05:00 Temperature 97 F L Temperature Source Temporal Pulse Rate 58 L Respiratory Rate 16 Blood Pressure 110/85 H Blood Pressure Mean 93 Pulse Ox 97 Positive well nourished and well developed General Appearance ED: well developed and NAD HEENT HEENT Narrative: There is a 3 cm full-thickness V shaped laceration over the forehead just to the right of the midline. There is no bony crepitance or step-off. There is no foreign body noted. There is moderate gapping of the wound margins. Eyes PERRL and EOMs intact bilaterally Neck full ROM Resp normal respiratory effort and clear to auscultation bilaterally Cardio regular rhythm Rate: regular rate GI non-tender and non-distended Palpation: soft Back/Spine Back/Spine Narrative: There is tenderness over the lower lumbar spine. There is no bony crepitance or step-off. There is good range of motion. Extremity normal to inspection and full ROM General Extremety ED: Negative for deformity General Extremity: Negative for deformity Neuro oriented x3, CN's II-XII intact bilaterally, moves all extremities, no focal motor deficits and no sensory deficits noted Cesar Coma Scale: document GCS findings Spontaneous Obeys Commands Oriented 15 Sensorium / Orientation: alert Motor Exam: strength 5/5 throughout Psych mental status grossly normal and thought process normal MDM MDM MDM Narrative Medical decision making narrative: Differential diagnosis includes intracranial bleeding, closed head injury, lumbar compression fracture, and lumbosacral strain. CT scan of the brain will be obtained to assess for intracranial bleeding. X-rays of the lumbar spine will be obtained to assess for lumbar compression fracture. Radiography Diagnostic Testing: Clinical Impression(s) from Imaging Studies Brain CT 11/15/23 05:15 IMPRESSION: Negative Brain CT without contrast. Electronically Signed: Brandee Caceres MD at 6:14 EDT Reading Location ID and State: [facility] / [place] Tel , Service support , Lumbar Spine X-Ray 11/15/23 05:15 IMPRESSION: Multilevel degenerative spondylosis in the lumbar spine. Electronically Signed: Brandee Caceres MD at 6:13 EDT Reading Location ID and State: [facility] / [place] Tel , Service support , CT scan of the brain was obtained. There is no acute intracranial abnormality. This was interpreted by the radiologist and was also independently reviewed by myself. X-rays of the lumbar spine were obtained. There are 3 views. On my independent interpretation, there is no acute fracture. There is no spondylolisthesis not ed. Radiologist also interpreted the x-rays and agrees. Treatment and Re-Evaluation Narrative: LET gel was applied to the wound. The wound was cleaned and irrigated with copious amounts of normal saline. The wound was anesthetized with 1% lidocaine with epinephrine locally. The wound was closed with 5 simple interrupted #6-0 nylon sutures under sterile technique. Patient tolerated the procedure well. Bacitracin dressing was applied. Patient was instructed to keep the wound clean and dry. Patient was instructed to follow-up with her primary care physician in 5 days for wound recheck and suture removal. Patient understood and was agreeable with the plan. All questions were answered. Discharge Plan Triage Chief Complaint: Laceration ED Provider: Milan Ortiz Dx/Rx/DC Orders Clinical Impression: Facial laceration, Fall Instructions: ED Laceration, All Closures, ED Laceration Minimize Scars Prescriptions: No Action escitalopram oxalate 20 mg tablet 20 mg PO DAILY omeprazole 40 mg capsule,delayed release(DR/EC) 40 mg PO DAILY methotrexate sodium 2.5 mg tablet 2.5 mg PO DAILY Patient Comments: PATIENT TAKES 12.5MG ON SATURDAYS amlodipine 10 mg tablet 2.5 mg PO DAILY Rx Instructions: Hold for SBP less than 120 mmHg Primary Care Provider: Dewayne Rios Referrals: Dewayne Rios MD [Primary Care Provider] - 5 Days for suture removal Disposition Disposition: Home, Self Care
--- NOTE | 2023-11-15 05:15 | RAD_ITS ---
INDICATION: Injury/Pain EXAMINATION/TECHNIQUE: X-RAY - XR Spine Lumbar 2 or 3 Views COMPARISON: FINDINGS: VERTEBRAE: Mild degenerative dextroscoliosis of the lumbar spine. Decreased height of multiple vertebral bodies in the lower thoracic spine suggesting compression fractures of undetermined age. No significant facet arthropathy. DISCS: Multilevel degenerative spondylosis in the lumbar spine more prominent in the upper lumbar spine. INCLUDED ABDOMEN: Included bowel gas pattern is non-obstructive. Atherosclerotic calcifications are noted in the abdominal aorta. RAD/Lumbar Spine 2 or 3 Views IMPRESSION: Multilevel degenerative spondylosis in the lumbar spine. Electronically Signed: Brandee Caceres MD at 6:13 EDT ,
--- NOTE | 2023-11-15 05:15 | CT_ITS ---
INDICATION: Head injury EXAMINATION: CT BRAIN - CT Head or Brain W/O Contrast Injection TECHNIQUE: Multiple axial images were obtained of the head without intravenous contrast. A radiation dose optimization technique was used for this scan. IV Contrast dosage and agent: None. RADIATION DOSAGE (If Supplied By Facility): CTDIvol = ( 44.99 ) mGy, DLP = ( 779.23 ) mGycm COMPARISON: CT BrainSep 2022 6:09pm FINDINGS: BRAIN PARENCHYMA: No intra- or extra-axial hemorrhage. No evidence of acute infarct. No intracranial mass or mass effect. There is preservation of the grubbs/white matter interface. Posterior fossa structures are unremarkable. CSF SPACES: Appropriate for age. No hydrocephalus. Basal cisterns are patent. CALVARIUM, SKULL BASE, PARANASAL SINUSES AND MASTOID AIR CELLS: Clear. No discrete lytic or blastic abnormalities. ORBITS: Both globes, extraocular muscles, optic nerves and retrobulbar fat appear unremarkable. ASPECTS Score for Acute Strokes: 10 CT/Brain/Head without Contrast IMPRESSION: Negative Brain CT without contrast. Electronically Signed: Brandee Caceres MD at 6:14 EDT Reading Location ID and State: [facility] / [place] Tel , Service support ,
[2023-11-15] MEDS: Lidocaine 1% /Epi 1:100 (20ml) 20 ML Vial INFILT (05:38)
[2023-11-15] MEDS: Lidocaine/Epi/Tetracaine 50 ML 1 APPLIC TOPICAL (05:38)
[2023-11-15 07:15] VITALS: BP 145/55; PULSE 57; RESP 18; TEMP 36.8; O2SAT 97
== END 2023-11-15 07:16 | disposition home or self-care (01) ==
PROVIDERS: Emergency Provider Emergency Medicine; PCP Internal Medicine; Visit Provider Emergency Medicine
DX: S01.81XA Laceration without foreign body of other part of head, initial encounter (principal); W01.0XXA Fall on same level from slipping, tripping and stumbling without subsequent striking against object, initial encounter; Z87.891 Personal history of nicotine dependence; I25.10 Atherosclerotic heart disease of native coronary artery without angina pectoris; I10 Essential (primary) hypertension; R51.9 Headache, unspecified
CPT/HCPCS: 12013; 70450; 72100; 99283

== ENCOUNTER → 2024-01-22 | Outpatient (CLI) | payer MEDICARE, SELFPAY ==
[2024-01-22 15:32] LABS: Absolute Lymphocyte Count 2.04 X10^3/uL (0.83-4.51); Absolute Neutrophil Count 6.9 X10^3/uL (2.0-7.7); Eosinophil# 0.19 X10^3/uL; Eosinophils% 1.9 % (0-5); Hematocrit 37.1 % (37-47); Hemoglobin 11.8 g/dL (12.0-15.0); Lymphocyte # 2.04 X10^3/ul (0.83-4.51); Lymphocyte % 20.2 % (19-41); Mean Corp Hgb Conc 31.8 g/dL (32-36); Mean Corpuscular Hgb 31.5 pg (27.0-32.0); Mean Corpuscular Volume 98.9 fL (81-99); Mean Platelet Vol. 10.7 fl (6.2-12.0); Monocyte# 0.82 X10^3/uL; Monocyte% 8.1 % (0-10); NRBC Flagged by Analyzer 0 % (0-5); Neutrophil % 68.5 % (47-70); Platelet Count 345 K/mm3 (150-450); RBC Distribution Width CV 14.6 % (11.6-14.6); RBC Distribution Width SD 52.9 fl (35.1-43.9); Red Blood Count 3.75 M/mm3 (4.2-5.4); White Blood Count 10.1 K/mm3 (4.4-11.0)
[2024-01-22 16:38] LABS: ALB/GLOB Ratio 1.1 RATIO (0.9-2.4); AST(SGOT) 18 U/L (15-37); Alanine Aminotransfer ALT/SGPT 17 U/L (13-56); Albumin, Serum 3.8 g/dL (3.2-5.0); Alkaline Phosphatase 67 U/L (45-117); Anion Gap 6 (5-15); BUN 15 mg/dL (7-18); Calcium,Total 9.7 mg/dL (8.5-10.1); Chloride 105 mmol/L (98-107); Creatinine, Serum 1.15 mg/dL (0.55-1.02); EST Glomerular Filtration Rate 48 mL/min (>60); Est Glom Filt Rate - Afr Amer 58 mL/min (>60); Globulin 3.6 g/dL (2.2-4.2); Glucose 98 mg/dL (74-106); Potassium 4.6 mmol/L (3.5-5.1); Protein, Total 7.4 g/dL (6.4-8.2); Sodium Level 138 mmol/L (136-145)
== END | disposition home or self-care (01) ==
LOC: MTLAB 13:58
PROVIDERS: PCP Internal Medicine; Referring Provider Internal Medicine Rheumatology; Visit Provider Internal Medicine Rheumatology
DX: L40.59 Other psoriatic arthropathy (principal); M33.20 Polymyositis, organ involvement unspecified; Z79.899 Other long term (current) drug therapy; L40.8 Other psoriasis; M47.897 Other spondylosis, lumbosacral region; M47.892 Other spondylosis, cervical region; H40.9 Unspecified glaucoma; I10 Essential (primary) hypertension; E78.5 Hyperlipidemia, unspecified
CPT/HCPCS: 36415; 80053; 85025

== ENCOUNTER 2024-02-04 15:32 | Inpatient (IN) | payer MEDICARE, SELFPAY ==
[2024-02-04] VITALS (9 sets, daily range): BP systolic 105–163; BP diastolic 59–102; PULSE 54–75; RESP 12–18; TEMP 36.7–36.8; O2SAT 92–100; BMI 28.7; BMI 27.8
--- NOTE | 2024-02-04 15:48 | EDS_ITS ---
HPI History of Present Illness HPI Narrative: Patient presents with right ankle injury that occurred today. Patient states she was weeding her flower bed when she tripped and fell. Patient states she felt and heard a snap. Patient states her pain is sharp and burning. Patient states it is worse with any movement. Patient denies any paresthesias or weakness. Patient denies any head injury or loss of consciousness. Patient denies any other injuries. Patient states her last tetanus was within 5 years. 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) Bronchitis Elevated liver enzymes FHx: cholecystectomy Hypertension NSTEMI (non-ST elevated myocardial infarction) (06/21/23) Polymyositis Right rib fracture Home Medications ?Medication ?Instructions ?Recorded ?Last Taken ?Type escitalopram oxalate 20 mg tablet 20 mg PO DAILY 06/20/23 Unknown History omeprazole 40 mg capsule,delayed 40 mg PO DAILY 06/20/23 Unknown History release amlodipine 10 mg tablet 2.5 mg PO DAILY 10/23/23 Unknown History methotrexate sodium 2.5 mg tablet 2.5 mg PO DAILY UNKNOWN 10/23/23 Unknown History hydrocodone-acetaminophen 5-325mg 1 tab PO Q6H PRN PRN Pain 3 days 02/04/24 Unknown Rx 5mg-325mg #10 TABLETS Allergy/AdvReac Type Severity Reaction Status Date / Time erythromycin base Allergy Hives Verified 11/15/23 05:00 codeine AdvReac Upset Verified 11/15/23 05:00 Stomach morphine AdvReac Nausea Verified 02/04/24 15:39 Social History household members: spouse Smoking Status: Former smoker substance use type: does not use ROS ROS ED Constitutional Constitutional ED: Denies chills or fever(s) Eyes Eyes: Denies blurry vision or change in vision ENT ENT ED: Denies rhinorrhea or sore throat Cardiovascular Cardiovascular: Denies chest pain or palpitations Respiratory/Chest Respiratory/Chest: Reports cough; Denies dyspnea Gastrointestinal Gastrointestinal: Denies nausea or vomiting Genitourinary Genitourinary ED: Denies dysuria or hematuria Musculoskeletal Musculoskeletal: Denies back pain or neck pain Integumentary Denies abscess or rash Neurologic Neurologic: Denies headache(s) or weakness Allergic/Immunologic Allergic/Immunologic ED: Denies mouth swelling or urticaria EXAM Physical Exam Const Vital Signs: 02/04/24 15:34 02/04/24 16:08 02/04/24 17:10 Temperature 98.0 F 98.2 F Temperature Source Oral Pulse Rate 57 L 70 75 Pulse Rate [1 (Initial Baseline)] Pulse Rate [2] Pulse Rate [3] Respiratory Rate 16 16 13 Respiratory Rate [1 (Initial Baseline)] Respiratory Rate [2] Respiratory Rate [3] Blood Pressure 125/82 H 124/71 H 163/86 H Blood Pressure [1 (Initial Baseline)] Blood Pressure [2] Blood Pressure [3] Blood Pressure Mean 96 88 Pulse Ox 95 97 100 Oxygen Delivery Method Room Air Room Air Nasal Cannula Oxygen Delivery Method [1 (Initial Baseline)] Oxygen Delivery Method [2] Oxygen Delivery Method [3] Oxygen Flow Rate (L/min) 4 Oxygen Flow Rate (L/min) [1 (Initial Baseline)] Oxygen Flow Rate (L/min) [3] Fraction of Inspired Oxygen (FIO2) [2] 02/04/24 17:12 02/04/24 17:24 02/04/24 17:26 Temperature 98.1 F Temperature Source Oral Pulse Rate 56 L Pulse Rate [1 (Initial Baseline)] 68 Pulse Rate [2] 54 L Pulse Rate [3] 54 L Respiratory Rate 12 Respiratory Rate [1 (Initial Baseline)] 16 Respiratory Rate [2] 13 Respiratory Rate [3] 14 Blood Pressure 111/59 L Blood Pressure [1 (Initial Baseline)] 163/89 H Blood Pressure [2] 127/69 H Blood Pressure [3] 119/62 Blood Pressure Mean 76 Pulse Ox 92 Oxygen Delivery Method Room Air Room Air Oxygen Delivery Method [1 (Initial Baseline)] Nasal Cannula Oxygen Delivery Method [2] Non-Rebreather Oxygen Delivery Method [3] Nasal Cannula Oxygen Flow Rate (L/min) Oxygen Flow Rate (L/min) [1 (Initial Baseline)] 4 Oxygen Flow Rate (L/min) [3] 2 Fraction of Inspired Oxygen (FIO2) [2] 100 02/04/24 17:50 Temperature 98.2 F Temperature Source Oral Pulse Rate 60 Pulse Rate [1 (Initial Baseline)] Pulse Rate [2] Pulse Rate [3] Respiratory Rate 16 Respiratory Rate [1 (Initial Baseline)] Respiratory Rate [2] Respiratory Rate [3] Blood Pressure 105/69 Blood Pressure [1 (Initial Baseline)] Blood Pressure [2] Blood Pressure [3] Blood Pressure Mean 81 Pulse Ox 93 Oxygen Delivery Method Nasal Cannula Oxygen Delivery Method [1 (Initial Baseline)] Oxygen Delivery Method [2] Oxygen Delivery Method [3] Oxygen Flow Rate (L/min) 2 Oxygen Flow Rate (L/min) [1 (Initial Baseline)] Oxygen Flow Rate (L/min) [3] Fraction of Inspired Oxygen (FIO2) [2] Positive well nourished and well developed General Appearance ED: well developed and NAD HEENT Reports moist mucous membranes Neck full ROM and supple Extremity Extremity Narrative: There is obvious deformity of the right ankle. There is tenderness to palpation. There is a good pedal pulse noted. Capillary refill is less than 2 seconds all digits. Sensation was intact to light touch in all digits. Range of motion was limited in all motions of the right ankle secondary to pain. Neuro oriented x3, CN's II-XII intact bilaterally, moves all extremities and no sensory deficits noted Sensorium / Orientation: alert Motor Exam: strength 5/5 throughout Psych mental status grossly normal MDM MDM MDM Narrative Medical decision making narrative: Differential diagnosis includes fracture and dislocation of the right ankle. X- rays of the right ankle will be obtained to assess for fracture and dislocation. Radiography Diagnostic Testing: Clinical Impression(s) from Imaging Studies Ankle X-Ray 02/04/24 16:20 IMPRESSION: Fracture dislocation of the right ankle as described. Electronically Signed: Kole Kim MD at 16:40 EDT , Ankle X-Ray 02/04/24 17:25 IMPRESSION: Fracture lateral malleolus. Fracture of the medial malleolus. Overlying soft tissue swelling. Anterior dislocation of the ankle. Electronically Signed: Dionte Amezcua MD at 18:04 EDT , X-rays of the right ankle were obtained. There are 2 views. On my independent interpretation, there is a fracture dislocation of the right ankle. This was also interpreted by the radiologist who agrees. Repeat x-rays of the right ankle were obtained after reduction and application of the splint. There are 2 views. On my independent interpretation, there is a fracture of the medial and lateral malleolus. There is soft tissue swelling. This is also interpreted by the radiologist who agrees. Treatment and Re-Evaluation Narrative: Patient was given Dilaudid and Zofran. Patient was advised of the need for sedation and reduction of the fracture. Patient is agreeable with this. Patient was advised of the risks and benefits. Patient was given the opportunity ask questions. Patient had no further questions. Patient was placed on continuous cardiac and pulse oximeter monitors. Patient was given a dose of 70 mg of propofol. After adequate sedation, the ankle was reduced. Patient was placed in a well-padded custom made posterior and sugar-tong splint. Patient tolerated the procedure well. There was a brief episode of mild hypoxia. This improved after application of a nonrebreather mask. Patient awakened easily after the procedure. Neurovascular exam was intact after application of the splint. Case was discussed with Dr. Munguia from podiatry. He will follow-up with patient as an outpatient. He does not want to do surgery at this time until the swelling is allowed to go down. Patient was given a prescription for [place]. Patient was instructed to ice and elevate the right ankle. Patient thinks that she would do better with a walker. Patient was given a walker. Patient is given a prescription for [place]. Patient was instructed to follow-up with Dr. Munguia in 3 to 5 days. Patient understood and was agreeable with the plan. All questions were answered. Patient attempted ambulating with a walker but was unable to effectively use the walker and remain nonweightbearing. Because of this, I recommended admission t o the [facility]. Patient is agreeable with this. Case was discussed with the hospitalist. He will admit the patient for observation. Patient and spouse understood and were agreeable with the plan. All questions were answered. Discharge Plan Triage Chief Complaint: Lower Extremity Injury ED Provider: Milan Ortiz Dx/Rx/DC Orders Clinical Impression: Closed bimalleolar fracture of right ankle, Fall, Inability to ambulate due to right ankle or foot Instructions: ED Ankle Fracture Prescriptions: New hydrocodone-acetaminophen 5-325 mg tablet 1 tab PO Q6H PRN PRN (Reason: Pain) 3 Days Qty: 10 0RF No Action escitalopram oxalate 20 mg tablet 20 mg PO DAILY omeprazole 40 mg capsule,delayed release(DR/EC) 40 mg PO DAILY methotrexate sodium 2.5 mg tablet 2.5 mg PO DAILY Patient Comments: PATIENT TAKES 12.5MG ON SATURDAYS amlodipine 10 mg tablet 2.5 mg PO DAILY Rx Instructions: Hold for SBP less than 120 mmHg Primary Care Provider: Dewayne Rios Referrals: Van Munguia DPM [Med Staff - Active Staff] - 3-5 Days Dewayne Rios MD [Primary Care Provider] - Activity Restrictions/Additional Instructions: Do not put any weight on your right ankle Print Language: Salvadorean Disposition Disposition: Acute Care Hospital [facility]
[2024-02-04] MEDS: Ondansetron 4 MG/2 ML Vial IV (16:03)
[2024-02-04] MEDS: HYDROmorphone 0.5 MG/0.5 ML SYRINGE IV ×3 (16:03→23:49)
--- NOTE | 2024-02-04 16:20 | RAD_ITS ---
EXAM: XR RIGHT ANKLE, 2 VIEWS CLINICAL INDICATION: Injury/Pain TECHNIQUE: Frontal and lateral views of the right ankle. COMPARISON: No relevant prior studies available. FINDINGS: BONES/JOINTS: 2 limited views of the right ankle demonstrate fracture dislocation involving the medial and lateral malleoli. Involvement of the posterior malleolus difficult to exclude on this exam. Talus is laterally dislocated. SOFT TISSUES: Diffuse soft tissue swelling. No radiopaque foreign body. RAD/Ankle 2 Views IMPRESSION: Fracture dislocation of the right ankle as described. Electronically Signed: Kole Kim MD at 16:40 EDT ,
[2024-02-04] MEDS: Propofol 200 MG/20 ML Vial IV BOLUS (17:11)
--- NOTE | 2024-02-04 17:25 | RAD_ITS ---
EXAM: XR RIGHT ANKLE, 2 VIEWS CLINICAL INDICATION: Fracture TECHNIQUE: Frontal and lateral views of the right ankle. COMPARISON: Study done earlier today. FINDINGS: BONES/JOINTS: Fracture lateral malleolus. Fracture of the medial malleolus. Overlying soft tissue swelling. Anterior dislocation of the ankle. No sclerotic or destructive changes observed. SOFT TISSUES: See above. OTHER FINDINGS: Fiberglas cast in place. RAD/Ankle 2 Views IMPRESSION: Fracture lateral malleolus. Fracture of the medial malleolus. Overlying soft tissue swelling. Anterior dislocation of the ankle. Electronically Signed: Dionte Amezcua MD at 18:04 EDT ,
[2024-02-04] MEDS: HYDROcodone Bitartrate/Apap 5/325 Tablet PO (18:57)
--- NOTE | 2024-02-04 19:34 | HP.PCM.HOS_ITS ---
[facility] - General General Date of Admission: 02/04/24 Date of Service: 02/04/24 Chief Complaint: Right Ankle Fracture after Fall. HPI Narrative JAIMIE BRITT, is a 83 F with a past medical history of essential hypertension, overweight; with BMI of 28.7 present on admission, remote history of tobacco abuse, CAD; s/p NSTEMI (05/2023), history of polymyositis; on MTX, history of bronchitis, depression, history of elevated LFT's, history of ch olecystectomy, GERD, history of Right rib fracture and OA who presents to [facility] ER complaining of Right ankle fracture after fall. Ms. Britt reports her symptoms began approximately one hour prior to her arrival when she was weeding her flower bed when she tripped and fell and then felt and heard a snap emanating from her Right ankle. She then developed severe pain that was simultaneously sharp and burning and was made worse by any movement and was not relieved by rest or anything else. She denies associated paresthesias or weakness. She denies LOC or significant head injury with her fall. In the ER X-rays confirmed evidence of fracture with dislocation of the Right ankle. There is no report of fever, chills, nausea, vomiting, diarrhea or constipation but she was unable to use a cane, crutches or walker to mobilize so the hospitalist service was contacted to admit patient to general medical floor under observation status until an alternative plan for her care at an [facility] can be arranged for a stay that is expected to be less than 48 hours. 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) Elevated liver enzymes Polymyositis Right rib fracture FHx: cholecystectomy Bronchitis Home Medications ?Medication ?Instructions ?Recorded ?Last Taken ?Type escitalopram oxalate 20 mg tablet 20 mg PO DAILY 06/20/23 Unknown History omeprazole 40 mg capsule,delayed 40 mg PO DAILY 06/20/23 Unknown History release amlodipine 10 mg tablet 2.5 mg PO DAILY 10/23/23 Unknown History hydrocodone-acetaminophen 5-325mg 1 tab PO Q6H PRN PRN Pain 3 days 02/04/24 Unknown Rx 5mg-325mg #10 TABLETS timolol maleate 0.5 % eye drops 1 drp ophthalmic (eye) BID 02/04/24 02/04/24 History Allergy/AdvReac Type Severity Reaction Status Date / Time erythromycin base Allergy Hives Verified 11/15/23 05:00 codeine AdvReac Upset Verified 11/15/23 05:00 Stomach morphine AdvReac Nausea Verified 02/04/24 15:39 Social History household members: spouse Smoking Status: Former smoker substance use type: does not use ROS ROS Narrative Review of systems: Constitutional: Patient denies fever or chills. Eyes: Patient denies visual changes or discharge from eyes. ENT: Patient denies sore throat, ear pain or runny nose. CV: Patient denies chest pain, palpitations or heart racing. Resp: Patient denies SOB or cough. GI: Patient denies abdominal pain, nausea, vomiting, diarrhea or constipation. : Patient denies dysuria or hematuria. MSK: Patient admits to severe Right ankle pain made worse with movement as per HPI. Skin: Patient denies abscess, jaundice or rash. Neuro: Patient denies headache, paresthesias or neurologic weakness. Allergic: Patient denies lip swelling, tongue swelling or urticaria. Psychiatric: Patient denies symptoms of depression or anxiety. Endocrinologic: Patient denies polyuria, polydipsia and polyphagia. 14 point ROS otherwise negative except for positives noted above in HPI. Vital Signs Vital Signs Vital Signs: 02/04/24 15:34 02/04/24 16:08 02/04/24 17:10 Temperature 98.0 F 98.2 F Temperature Source Oral Pulse Rate 57 L 70 75 Pulse Rate [1 (Initial Baseline)] Pulse Rate [2] Pulse Rate [3] Respiratory Rate 16 16 13 Respiratory Rate [1 (Initial Baseline)] Respiratory Rate [2] Respiratory Rate [3] Blood Pressure 125/82 H 124/71 H 163/86 H Blood Pressure [1 (Initial Baseline)] Blood Pressure [2] Blood Pressure [3] Blood Pressure Mean 96 88 Pulse Ox 95 97 100 Oxygen Delivery Method Room Air Room Air Nasal Cannula Oxygen Delivery Method [1 (Initial Baseline)] Oxygen Delivery Method [2] Oxygen Delivery Method [3] Oxygen Flow Rate (L/min) 4 Oxygen Flow Rate (L/min) [1 (Initial Baseline)] Oxygen Flow Rate (L/min) [3] Fraction of Inspired Oxygen (FIO2) [2] 02/04/24 17:12 02/04/24 17:24 02/04/24 17:26 Temperature 98.1 F Temperature Source Oral Pulse Rate 56 L Pulse Rate [1 (Initial Baseline)] 68 Pulse Rate [2] 54 L Pulse Rate [3] 54 L Respiratory Rate 12 Respiratory Rate [1 (Initial Baseline)] 16 Respiratory Rate [2] 13 Respiratory Rate [3] 14 Blood Pressure 111/59 L Blood Pressure [1 (Initial Baseline)] 163/89 H Blood Pressure [2] 127/69 H Blood Pressure [3] 119/62 Blood Pressure Mean 76 Pulse Ox 92 Oxygen Delivery Method Room Air Room Air Oxygen Delivery Method [1 (Initial Baseline)] Nasal Cannula Oxygen Delivery Method [2] Non-Rebreather Oxygen Delivery Method [3] Nasal Cannula Oxygen Flow Rate (L/min) Oxygen Flow Rate (L/min) [1 (Initial Baseline)] 4 Oxygen Flow Rate (L/min) [3] 2 Fraction of Inspired Oxygen (FIO2) [2] 100 02/04/24 17:50 Temperature 98.2 F Temperature Source Oral Pulse Rate 60 Pulse Rate [1 (Initial Baseline)] Pulse Rate [2] Pulse Rate [3] Respiratory Rate 16 Respiratory Rate [1 (Initial Baseline)] Respiratory Rate [2] Respiratory Rate [3] Blood Pressure 105/69 Blood Pressure [1 (Initial Baseline)] Blood Pressure [2] Blood Pressure [3] Blood Pressure Mean 81 Pulse Ox 93 Oxygen Delivery Method Nasal Cannula Oxygen Delivery Method [1 (Initial Baseline)] Oxygen Delivery Method [2] Oxygen Delivery Method [3] Oxygen Flow Rate (L/min) 2 Oxygen Flow Rate (L/min) [1 (Initial Baseline)] Oxygen Flow Rate (L/min) [3] Fraction of Inspired Oxygen (FIO2) [2] Weight Weight: 152 lb 1.903 oz Body Mass Index (BMI) 28.7 Physical Exam Const alert, oriented x3 and average body habitus General Appearance: cooperative HEENT normocephalic, head/scalp atraumatic, hearing grossly normal bilaterally and moist oral mucous membranes Eyes PERRL and EOMs intact bilaterally Neck no lymphadenopathy and supple Resp normal respiratory effort, no retractions, no use of accessory muscles and clear to auscultation bilaterally Cardio regular rate and regular rhythm GI normal to inspection, nondistended, normoactive bowel sounds, soft to palpation, non-tender and non-distended Extremity Extremity Narrative: Right ankle splint in place with no signs of vascular compromise. Skin Skin Narrative: Patient has no evidence of jaundice, rash or abscess. Neuro oriented x3, CN's II-XII intact bilaterally, moves all extremities and no focal motor deficits Sensorium / Orientation: awake, alert, oriented to person, oriented to place and oriented to time Speech: speech normal Psych affect normal Results Medical Records Data Attestation: I reviewed the patient's medical records Lab / Micro Data Attestation: I reviewed the patient's lab results. Labs: None ordered in ER but are pending at this time. Imaging Radiology Impression Ankle X-Ray 02/04/24 16:20 IMPRESSION: Fracture dislocation of the right ankle as described. Electronically Signed: Kole Kim MD at 16:40 EDT Reading Location ID and State: [facility] / [place] Tel , Service support , Ankle X-Ray 02/04/24 17:25 IMPRESSION: Fracture lateral malleolus. Fracture of the medial malleolus. Overlying soft tissue swelling. Anterior dislocation of the ankle. Electronically Signed: Dionte Amezcua MD at 18:04 EDT , Assessment & Plan Assessment/Plan (1) Closed bimalleolar fracture of right ankle: QUALIFIERS: Encounter type: initial encounter Qualified Code(s): S82.841A - Displaced bimalleolar fracture of right lower leg, initial encounter for closed fracture (2) Fall: QUALIFIERS: Encounter type: initial encounter Qualified Code(s): W19.XXXA - Unspecified fall, initial encounter (3) Inability to ambulate due to right ankle or foot: (4) Generalized weakness: (5) Vertigo: PLAN: Plan 1. X-rays confirmed evidence of fracture with dislocation of the Right ankle with subsequent inability to ambulate - Admit to general medical floor under observation status. Give Tylenol prn for [id number] (level 1-5/10) pain or fever. Give Dilaudid IV prn for severe (level 6-10/10) pain. Finally, we will consult Dr. Munguia of the podiatry service to see this patient on-rounds in the AM for further recommendations with help appreciated in advance. 2. Generalized Weakness with Ambulatory Dysfunction arising from #1 - PT/OT and Case Management to consult and treat on-rounds in the AM for further recommendations with help appreciated in advance. 3. BPPV; with severe vertigo made worse with fast head movements complicating #1 & #2 - Give Antivert prn for breakthrough symptoms and consider Scopolamine patch if problem persists in spite of conservative treatment. 4. Essential hypertension - Continue home regimen plus give prn IV Hydralazine for systolic blood pressure > 160 mmHg. 5. Overweight; with BMI of 28.7 present on admission - Weight loss will be recommended. Check TSH. 6. Remote history of tobacco abuse - Noted. 7. CAD; s/p NSTEMI (05/2023) - Resume home regimen as previous. 8. History of polymyositis; on MTX - Continue MTX. 9. History of bronchitis - Noted. 10. Depression - Home regimen to be maintained. 11. History of elevated LFT's - Noted. 12. History of cholecystectomy - Noted. 13. GERD - Resume PPI. 14. History of Right rib fracture - Noted. 15. OA - Stable. 16. DVT prophylaxis - SCD's on LLE. Avoid blood thinners in cases of traumatic fracture due to increased risk of bleeding complications. Total time: Approximately 85 minutes. Charges/Coding Visit Charges OBSV E&M: [id number] Observ/hosp same date L2
[2024-02-04] MEDS: 0.9% Normal Saline (1000mL) 1,000 ML 70 ML IV (21:46)
[2024-02-04] MEDS: Acetaminophen 325 MG Tablet 650 MG PO (23:49)
[2024-02-04] MEDS: Timolol 0.5% 5ML OPTH.BTL 1 DRP EACH EYE (23:49)
[2024-02-05] VITALS (19 sets, daily range): BP systolic 108–134; BP diastolic 54–89; PULSE 56–78; RESP 12–18; TEMP 36.1–37.2; O2SAT 78–100; BMI 27.8
[2024-02-05 06:10] LABS: Absolute Lymphocyte Count 1.86 X10^3/uL (0.83-4.51); Absolute Neutrophil Count 5.1 X10^3/uL (2.0-7.7); Basophil# 0.07 X10^3/uL; Basophil% 0.8 % (0-1); Eosinophil# 0.19 X10^3/uL; Eosinophils% 2.3 % (0-5); Hematocrit 34.8 % (37-47); Hemoglobin 10.7 g/dL (12.0-15.0); Lymphocyte # 1.86 X10^3/ul (0.83-4.51); Lymphocyte % 22.1 % (19-41); Mean Corp Hgb Conc 30.7 g/dL (32-36); Mean Corpuscular Hgb 31.1 pg (27.0-32.0); Mean Corpuscular Volume 101.2 fL (81-99); Mean Platelet Vol. 11.1 fl (6.2-12.0); Monocyte# 1.18 X10^3/uL; NRBC Flagged by Analyzer 0 % (0-5); Neutrophil % 60.4 % (47-70); Platelet Count 292 K/mm3 (150-450); RBC Distribution Width CV 14.1 % (11.6-14.6); RBC Distribution Width SD 52.2 fl (35.1-43.9); Red Blood Count 3.44 M/mm3 (4.2-5.4); White Blood Count 8.4 K/mm3 (4.4-11.0)
[2024-02-05] MEDS: HYDROmorphone 0.5 MG/0.5 ML SYRINGE IV ×2 (06:11→11:29)
[2024-02-05 06:47] LABS: AST(SGOT) 376 U/L (15-37); Alanine Aminotransfer ALT/SGPT 234 U/L (13-56); Albumin, Serum 3.4 g/dL (3.2-5.0); Alkaline Phosphatase 88 U/L (45-117); Anion Gap 4 (5-15); BUN 15 mg/dL (7-18); BUN/Creat Ratio 18.5 RATIO (10-20); Calcium,Total 9.1 mg/dL (8.5-10.1); Chloride 105 mmol/L (98-107); Creatinine, Serum 0.81 mg/dL (0.55-1.02); EST Glomerular Filtration Rate 72 mL/min (>60); Est Glom Filt Rate - Afr Amer 87 mL/min (>60); Globulin 3.5 g/dL (2.2-4.2); Glucose 111 mg/dL (74-106); Phosphorus 4.2 mg/dL (2.5-4.9); Potassium 4.7 mmol/L (3.5-5.1); Protein, Total 6.9 g/dL (6.4-8.2); Sodium Level 138 mmol/L (136-145); Thyroid Stim Hormone (TSH) 1.97 uIU/mL (0.358-3.74)
[2024-02-05] MEDS: Acetaminophen 500 MG Tablet 1000 MG PO ×3 (08:03→21:48)
[2024-02-05] MEDS: Escitalopram Oxalate 20 MG Tablet PO (08:03)
[2024-02-05] MEDS: amLODIPine 2.5 MG Tablet PO (08:04)
[2024-02-05] MEDS: Pantoprazole Sodium 40 MG Tablet PO (08:04)
[2024-02-05] MEDS: Meclizine HCl 25 MG Tablet PO (08:04)
[2024-02-05] MEDS: Timolol 0.5% 5ML OPTH.BTL 1 DRP EACH EYE ×2 (08:05→21:48)
--- NOTE | 2024-02-05 08:50 | EKG12_ITS ---
Test Reason : PRE OP Blood Pressure : / mmHG Vent. Rate : 074 BPM Atrial Rate : 074 BPM P-R Int : 174 ms QRS Dur : 078 ms QT Int : 432 ms P-R-T Axes : 079 022 072 degrees QTc Int : 479 ms Sinus rhythm with frequent Premature ventricular complexes Nonspecific ST and T wave abnormality Prolonged QT Abnormal ECG No previous ECGs available Confirmed by Van Huffman ([id number]), manuscript editor DEMETRIA GONZALEZ ([id number]) on 02/06/2024 7:52:33 AM Referred By: Confirmed By:Van Huffman
[2024-02-05] MEDS: oxyCODONE 5 MG Tablet PO (08:57)
--- NOTE | 2024-02-05 08:58 | PCM.HOSP.N ---
Hospitalist Note Notified by nursing staff that Dr. Mae with Podiatry will be taking the patient down for right ankle surgery today. Preoperative evaluation noted below. ? NSQIP score: Patient is at slightly above average risk for complications given risk factors of age, hypertension and mildly elevated BMI. It is likely that she will require assisted facility placement on discharge. ? Labs/imaging: Labs stable at baseline, will repeat CBC and BMP postoperatively. ? Cardiac: Hospitalized in 05/2023 for unstable angina. Left heart cath showed 40% proximal and 50 to 60% mid RCA lesions, and 20% proximal LAD lesion; medical therapy recommended. Echo showed EF 60%, no other significant abnormalities. No need for further cardiac workup prior to procedure. ? Medications: Continue home medications as normal. ? Previous procedural complications: None. ? Recommendation: Patient is medically optimized for procedure.
[2024-02-05 09:27] LABS: International Normalized Ratio 1.1
--- NOTE | 2024-02-05 09:44 | CASEMGMT ---
RN CM Assessment Face to Face with patient for initial transition planning/care coordination assessment. RN CM introduced self and role at [facility], pt voices understanding. Pt is A&Ox4 and is resting comfortably in bed and is calm. Care providers, pharmacy, and demographics verified. 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 Transportation: , GD, GS. Pt does not drive DME: Cane and walker at home. Shower GB. BP Cuff. HHC/SNF: Denies history Pt?s goal: Home Plan: TBD. Pt is to have surgery with Dr. Mae today for her ankle. At this time, it is too early in the pt stay to determine disposition needs. CM to follow pt after surgery and appreciate PT input to help formulate a safe DC plan moving forward. Sobia Gordillo RN, CM
--- NOTE | 2024-02-05 10:54 | CASEMGMT ---
Social Work- SW met with pt to discuss A/D. Pt spouse of 55 years, Mode, was present. Pt reports that Mode is HCPOA. Pt reports that she has directives at home, although she is uncertain if they are in a file cabinet or drawer. SW offered that if pt would like to do directives at the hospital, SW can assist. Pt reports she is not interested at this time. CINDA Bryant
[2024-02-05] MEDS: 0.9% Normal Saline (1000mL) 1,000 ML 70 ML IV (11:25)
[2024-02-05] MEDS: 0.9% Saline Lock 10 ML Syringe IV (11:28)
--- NOTE | 2024-02-05 12:37 | PCM.PN.HOSP ---
Reason for Visit Reason for Visit: Diagnoses Difficulty in walking, not elsewhere classified (02/04/24) Dizziness and giddiness (02/04/24) Weakness (02/04/24) Displaced bimalleolar fracture of right lower leg, initial encounter for closed fracture (02/04/24) Unspecified fall, initial encounter (02/04/24) Subjective Subjective Saw patient at bedside this morning, present. Patient had right leg splint in place and wrapped in Karri wrap from base of toes up to below the knee and she was keeping her leg elevated in bed. Patient was otherwise sitting up comfortably in bed, conversing normally, in no acute distress. She reported mild pain currently, much improved from last night with as needed pain medications. She was looking forward to having the procedure done today. She had no other acute concerns at this time. Objective Data Objective Data Vital Signs: Vital Signs Temp Pulse Resp BP Pulse Ox O2 Del Method O2 Flow Rate 98.5 F 76 16 127/73 H 93 Room Air 2 02/05/24 07:55 02/05/24 07:55 02/05/24 07:55 02/05/24 07:55 02/05/24 07:55 02/05/24 07:55 02/04/24 17:50 FiO2 100 02/04/24 17:12 Oxygen Flow Rate (L/min) [3] 2 Oxygen Flow Rate (L/min) [1 ( 4 Initial Baseline)] Oxygen Flow Rate (L/min) 2 Oxygen Delivery Method [3] Nasal Cannula Oxygen Delivery Method [2] Non-Rebreather Oxygen Delivery Method [1 ( Nasal Cannula Initial Baseline)] Oxygen Delivery Method Room Air Weight: 67 kg Body Mass Index (BMI) 27.8 Intake & Output: Intake and Output for Last 24 Hours 02/03/24 02/04/24 02/05/24 23:59 23:59 23:59 Intake Total 1655.5 / 1655.5 Output Total 500 / 500 Balance 1155.5 / 1155.5 Lab / Micro Data 02/05/24 05:17 02/05/24 05:17 Labs: Laboratory Results - last 24 hr 02/05/24 05:17: WBC 8.4, RBC 3.44 L, Hgb 10.7 L, Hct 34.8 L, MCV 101.2 H, MCH 31.1, MCHC 30.7 L, RDW Std Deviation 52.2 H, RDW Coeff of Juanito 14.1, Plt Count 292, MPV 11.1, Immature Gran % (Auto) 0.400, Neut % (Auto) 60.4, Lymph % (Auto) 22.1, Isabella % (Auto) 14.0 H, Eos % (Auto) 2.3, Baso % (Auto) 0.8, Absolute Neuts (auto) 5.1, Absolute Lymphs (auto) 1.86, Nucleated RBC % 0, Sodium 138, Potassium 4.7, Chloride 105, Carbon Dioxide 29.0, Anion Gap 4 L, BUN 15, Creatinine 0.81, Estim Creat Clear Calc 46.90, Est GFR (MDRD) Af Amer 87, Est GFR (MDRD) Non-Af 72, BUN/Creatinine Ratio 18.5, Glucose 111 H, Calcium 9.1, Phosphorus 4.2, Magnesium 2.0, Total Bilirubin 0.60, AST 376 H, ALT 234 H, Alkaline Phosphatase 88, Total Protein 6.9, Albumin 3.4, Globulin 3.5, Albumin/Globulin Ratio 1.0, TSH 1.97 02/05/24 07:56: PT 14.0, INR 1.1 Radiography Diagnostic Testing: Radiology Impression Ankle X-Ray 02/04/24 16:20 IMPRESSION: Fracture dislocation of the right ankle as described. Electronically Signed: Kole Kim MD at 16:40 EDT , Ankle X-Ray 02/04/24 17:25 IMPRESSION: Fracture lateral malleolus. Fracture of the medial malleolus. Overlying soft tissue swelling. Anterior dislocation of the ankle. Electronically Signed: Dionte Amezcua MD at 18:04 EDT , Physical Exam Const alert, oriented x3, no apparent distress and average body habitus Constitutional Narrative: Pleasant elderly female, sitting up comfortably in bed, conversing normally, in no acute distress. General Appearance: cooperative and comfortable HEENT normocephalic, head/scalp atraumatic, hearing grossly normal bilaterally, nasal mucous membranes and turbinates normal and moist oral mucous membranes Eyes PERRL, EOMs intact bilaterally and conjunctivae normal Neck full ROM Chest inspection of chest normal Resp normal respiratory effort, normal air movement, no use of accessory muscles and clear to auscultation bilaterally Cardio regular rate, regular rhythm, no murmurs and peripheral pulses 2+ throughout GI normal to inspection, nondistended, normoactive bowel sounds, soft to palpation, non-tender and non-distended Back/Spine normal ROM Extremity Extremity Narrative: Right leg with splint in Karri wrap from base of toes up to below the knee, stable. Skin no rashes or lesions noted Neuro no focal motor deficits Speech: speech normal Psych mental status grossly normal Assessment & Plan Assessment/Plan (1) Closed bimalleolar fracture of right ankle: QUALIFIERS: Encounter type: initial encounter Qualified Code(s): S82.841A - Displaced bimalleolar fracture of right lower leg, initial encounter for closed fracture (2) Inability to ambulate due to right ankle or foot: PLAN: Plan Patient is an 83-year-old female who presented [facility] ED on 02/04/2024 with right ankle pain after a fall at home. 1. Right ankle fracture with acute debility ? Podiatry following. X-rays on admit confirmed fractures of the lateral malleolus and medial malleolus, anterior dislocation of the ankle and overlying soft tissue swelling. Was discussed with on-call podiatry, and reduction of the fracture was done under sedation in the ED with good result. However, podiatry reevaluated on 02/04 and recommended surgical fixation. Preoperative evaluation as noted in quick note from morning of 02/04. Continue pain management with scheduled Tylenol, p.o. oxycodone as needed and IV Dilaudid as needed. Appreciate podiatry recs for DVT prophylaxis. PT/OT/case management following. Patient lives at home with her , has good functional status at baseline. Suspect patient will need either SNF or home with home health care on discharge. 2. Chronic mild anemia ? Hemoglobin 10.7 on admit, baseline appears to be around 11. Follow-up CBC postoperatively. 3. Elevated LFTs ? AST 376, ALT 234 on admit. Alk phos normal, LFTs otherwise benign and INR normal at 1.1. Unclear etiology for elevated LFTs. Patient notably has no abdominal pain. Will trend LFTs for now. Chronic medical conditions: ? History of nonobstructive CAD, hypertension: Had left heart cath in 05/2023 with nonobstructive CAD noted. Continue home amlodipine. ? GERD: Stable. Continue home omeprazole. ? Depression: Stable. Continue home escitalopram. DVT prophylaxis: SCDs CODE STATUS: Full code, verified Expected disposition: SNF versus home with home health care, TBD Total clinical time spent by myself addressing the patient's medical issues, reviewing all the data, and collaborating with patient's care team: 35 minutes. Charges/Coding Visit Charges Inpatient E&M: 85215 Subs Hosp L2
--- NOTE | 2024-02-05 15:19 | CASEMGMT ---
Met with patient to complete JENSEN form. JENSEN form explained to patient who voiced understanding and signed form. Original form placed in pt?s chart and copy provided to patient. Melissa Santa, Discharge Planning Asst
[2024-02-05] MEDS: Lactated Ringers 1,000 ML 15 ML IV (15:48)
--- NOTE | 2024-02-05 15:51 | PCM.PRE.AN2 ---
ASA Classification* ASA Classification ASA Classification: 3 and E Assessment & Plan Anesthesia* Anesthesia Assessment Anesthesia Assessment: Discussed sedation and/or anesthesia options, risks, benefits, and alternatives with patient/parents/legal guardian/POA. Questions invited. The patient/parents/legal guardian/POA seems to understand and agrees to proceed with anesthesia plan. Reviewed the physical assessment, medical history, allergy history and patient home medications list prior to surgery/procedure/anesthetic and documented any changes. Performed airway and anesthesia risk assessments. Anesthesia Type Anesthesia Type: MAC History Source History Obtained from:: Patient and Chart Anesthesia Focused Assessment* Temperature: 97.9 F Pulse Rate: 73 Blood Pressure: 132/74 Respiratory Rate: 18 Pulse Ox: 95 Oxygen Delivery Method: Room Air Airway Assessment Mouth opens: >3 cm Mallampati Score: II Teeth Condition: Intact Neck Range of motion (ROM): Full ROM Pertinent Findings EKG Pertinent Findings:: February 05, 2024. Sinus rhythm with frequent premature ventricular complexes. Nonspecific ST and T wave abnormality. prolonged QT Focused Labs Anesthesia Preop lab: CBC WBC 8.5 K/mm3 (4.4-11.0) 02/07/24 06:09 RBC 2.93 M/mm3 (4.2-5.4) L 02/07/24 06:09 Hgb 9.3 g/dL (12.0-15.0) L 02/07/24 06:09 Hct 29.0 % (37-47) L 02/07/24 06:09 Plt Count 258 K/mm3 (150-450) 02/07/24 06:09 CHEMISTRY Potassium 4.2 mmol/L (3.5-5.1) 02/06/24 06:35 Sodium 138 mmol/L (136-145) 02/06/24 06:35 Magnesium 2.0 mg/dL (1.6-2.6) 02/05/24 05:17 Phosphorus 4.2 mg/dL (2.5-4.9) 02/05/24 05:17 BUN 10 mg/dL (7-18) 02/06/24 06:35 Creatinine 0.75 mg/dL (0.55-1.02) 02/06/24 06:35 Glucose 105 mg/dL (74-106) 02/06/24 06:35 POC Glucose 106 mg/dL (74-106) 06/21/23 06:21 TSH 1.97 uIU/mL (0.358-3.74) 02/05/24 05:17 COAG PT 14.0 SECONDS (11.7-14.9) 02/05/24 07:56 Pre-Assessment Diagnosis/Proposed Procedure Planned Operative Procedure(s): Application of external fixator secondary to dislocated ankle fracture to right lower extremity. 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 When Was Last Pacemaker Check QUESTION #4 FULL TEXT: You/Your Family Experience fever (hyperthermia) with Anesthesia Last Oral Intake Last Oral intake: Last Oral Intake NPO since 09:00 02/05/24 08:59 Meds taken in AM with sips of Yes 02/05/24 08:59 water? Meds patient instructed to take am of surgery PONV PONV - loss prevention officer: PONV - loss prevention officer Female HX of Motion Sickness HX of N/V After Surgery Non-Smoker Duration of Surgery greater than 60 minutes Number of Risk Factors PONV Score Height & Weight Height & Weight: Anesthesia: Height & Weight Height 5 ft 1.02 in 02/05/24 08:59 Weight: 67 kg 02/05/24 08:59 Body Mass Index (BMI) 27.8 02/05/24 08:59 Respiratory Assessment Respiratory Assessment - loss prevention officer: Respiratory Tract Infection Hx - loss prevention officer Hx Respiratory Tract Infection STOP Sleep Apnea STOP Sleep Apnea - loss prevention officer: STOP Sleep Apnea - loss prevention officer Hx Hypertension Yes 02/04/24 21:55 Hx Sleep Apnea No 02/04/24 21:55 CPAP BIPAP Do you snore loudly (louder No 02/04/24 21:55 than talking or can be heard Do you often feel tired/ No 02/04/24 21:55 fatigued/ sleepy during daytime? Has anyone observed you stop No 02/04/24 21:55 breathing during sleep? STOP Results Negative 02/04/24 21:55 QUESTION #5 FULL TEXT : Do you snore loudly (louder than talking or can be heard through closed doors)? Tobacco Use History Tobacco Use History - loss prevention officer: Tobacco Use History - loss prevention officer Tobacco Use Smoking Status Former smoker 02/04/24 21:55 Hx Tobacco Use No 02/04/24 21:55 Years Smoking Packs Smoked per Day Smoking Cessation Date was No - quit smoking greater 02/04/24 21:55 within the last 15 years than 15 years ago Hx Smoking Cessation Date 07/31/83 02/04/24 21:55 Hx Smoking Cessation Counseling Hematologic Medial History Hematologic Hx - loss prevention officer: Hematologic Medical Hx - documentation improvement specialist Hx of Blood Transfusion No 02/04/24 21:55 Hx of Transfusion in last 3 No 02/04/24 21:55 Months Date of Last Transfusion (if within last 3 months) Ever experience any problems No 02/04/24 21:55 with transfusion(s)? Specify any problems Hx of Preganancy in last 3 N/A 02/04/24 21:55 Months Nurse Filling Out Transfusion CSIGNORIN 02/04/24 21:55 & Questions: Date: 02/04/24 02/04/24 21:55 Time: 21:57 02/04/24 21:55 Patient unable to answer at this time (ie. confused, unrespo /Reproduction History /Reproductive History - loss prevention officer: /Reproductive Hx- loss prevention officer Hx Now Gestational Age (in weeks): EDC: Hx Hx Para Hx Section SAB Active Medications Active Medications: Current Medications Generic Name Dose Route Start Last Admin Trade Name Freq PRN Reason Stop Dose Admin Acetaminophen 1,000 mg 02/05/24 07:30 02/05/24 14:14 Acetaminophen 500 Mg Tablet PO 1,000 mg Q8 MASON Administration Albuterol Sulfate 2.5 mg 02/04/24 21:39 Albuterol 2.5 Mg/3 Ml Vial.Neb. INHALATION Q2H PRN PRN SOB &/OR WHEEZING Amlodipine Besylate 2.5 mg 02/05/24 10:00 02/05/24 08:04 Amlodipine 2.5 Mg Tablet PO 2.5 mg DAILY MASON Administration Protocol Escitalopram Oxalate 20 mg 02/05/24 10:00 02/05/24 08:03 Escitalopram Oxalate 20 Mg Tablet PO 20 mg DAILY MASON Administration Hydromorphone HCl 0.5 mg 02/05/24 07:25 02/05/24 11:29 Hydromorphone 0.5 Mg/0.5 Ml Syringe IV 0.5 mg Q3H PRN PRN Administration Pain Score 6-10 Sodium Chloride 1,000 mls @ 70 mls/hr 02/04/24 20:10 02/05/24 15:22 IV 0 mls/hr .[id number] MASON Infusion Sodium Chloride 250 mls @ 15 mls/hr 02/04/24 21:42 IV .[id number] PRN Additional IVPB Infusion Sodium Chloride 250 mls @ 15 mls/hr 02/04/24 21:42 IV .[id number] PRN Saline Flush Lactated Ringer's 1,000 mls @ 15 mls/hr 02/05/24 16:00 02/05/24 15:48 IV 15 mls/hr .Q48H MASON Administration Magnesium Hydroxide 30 ml 02/04/24 21:39 Magnesium Hydroxide 30 Ml Udc PO DAILY PRN PRN Constipation Meclizine HCl 25 mg 02/05/24 03:05 02/05/24 08:04 Meclizine Hcl 25 Mg Tablet PO 25 mg TID PRN PRN Administration DIZZINESS Melatonin 3 mg 02/04/24 21:39 Melatonin 3 Mg Tablet PO QHS PRN PRN INSOMNIA Oxycodone HCl 5 mg 02/05/24 07:24 02/05/24 08:57 Oxycodone 5 Mg Tablet PO 5 mg Q4H PRN PRN Administration Pain Score 4-10 Pantoprazole Sodium 40 mg 02/05/24 10:00 02/05/24 08:04 Pantoprazole Sodium 40 Mg Tablet PO 40 mg DAILY MASON Administration Promethazine HCl 25 mg 02/04/24 21:39 Promethazine 25 Mg/Ml Syringe IM Q6H PRN PRN Breakthrough nausea/vomiting Sodium Chloride 10 - 40 ml 02/04/24 21:42 02/05/24 11:28 0.9% Saline Lock 10 Ml Syringe IV 10 ml UD PRN Administration SALINE FLUSH Timolol Maleate 1 drp 02/04/24 22:25 02/05/24 08:05 Timolol 0.5% 5ml Opth.Btl EACH EYE 1 drp BID MASON Administration PFSH Medical History Ankle fracture, right Hypertension NSTEMI (non-ST elevated myocardial infarction) (06/21/23) Atherosclerotic heart disease of [place] coronary artery without angina pectoris (06/21/23) Elevated liver enzymes Polymyositis Right rib fracture FHx: cholecystectomy Bronchitis Home Medications ?Medication ?Instructions ?Recorded ?Last Taken ?Type escitalopram oxalate 20 mg tablet 20 mg PO DAILY 06/20/23 Unknown History omeprazole 40 mg capsule,delayed 40 mg PO DAILY 06/20/23 Unknown History release amlodipine 10 mg tablet 2.5 mg PO DAILY 10/23/23 Unknown History timolol maleate 0.5 % eye drops 1 drp ophthalmic (eye) BID 02/04/24 02/04/24 History acetaminophen 500 mg tablet 1,000 mg (2 x 500 mg) PO Q8 #0 tabs 02/07/24 Unknown Rx enoxaparin 40 mg/0.4 mL 40 mg (0.4 mL) subcut DAILY 30 02/07/24 Unknown Rx subcutaneous syringe days #0 mL ibuprofen 400 mg tablet 400 mg PO Q8H PRN pain 14 days #14 02/07/24 Unknown Rx tabs ondansetron 4 mg disintegrating 4 mg PO Q8H PRN nausea and 02/07/24 Unknown Rx tablet vomiting 7 days #7 tabs oxycodone 5 mg tablet 5 mg PO Q6H PRN pain 7 days #7 tabs 02/07/24 Unknown Rx oxycodone 5 mg tablet 5 mg PO BID PRN pain 7 days #14 02/10/24 Unknown Rx tabs Allergy/AdvReac Type Severity Reaction Status Date / Time erythromycin base Allergy Hives Verified 11/15/23 05:00 codeine AdvReac Upset Verified 11/15/23 05:00 Stomach morphine AdvReac Nausea Verified 02/04/24 15:39 Social History household members: spouse Smoking Status: Former smoker substance use type: does not use Review of Systems (Anesthesia) ROS Narrative System reviewed and no additional complaints, except as documented.
--- NOTE | 2024-02-05 16:00 | RAD_ITS ---
EXAM: FL FLUOROSCOPY < 1 HOUR CLINICAL INDICATION: R ANKLE FX TECHNIQUE: Fluoroscopic images performed in multiple projections. Fluoroscopic guidance was provided by a physician. 155.5 seconds. 1.54 mGy. COMPARISON: No relevant prior studies available. FINDINGS AND RAD/Ankle 2 Views IMPRESSION: 15 fluoroscopic images utilized by the operative team. Refer to the operative note for complete details. Electronically Signed: Jaxson Montes DO at 19:08 EDT ,
--- NOTE | 2024-02-05 16:09 | PRE.ANES_ITS ---
ASA Classification* ASA Classification ASA Classification: 3 and E Assessment & Plan Anesthesia* Anesthesia Assessment Anesthesia Assessment: Discussed sedation and/or anesthesia options, risks, benefits, and alternatives with patient/parents/legal guardian/POA. Questions invited. The patient/parents/legal guardian/POA seems to understand and agrees to proceed with anesthesia plan. Reviewed the physical assessment, medical history, allergy history and patient home medications list prior to surgery/procedure/anesthetic and documented any changes. Performed airway and anesthesia risk assessments. Anesthesia Type Anesthesia Type: MAC (with Spinal vs GA) Anesthesia Focused Assessment* Temperature: 97.9 F Pulse Rate: 73 Blood Pressure: 132/74 Respiratory Rate: 18 Pulse Ox: 95 Airway Assessment Mouth opens: >3 cm Mallampati Score: II Focused Labs Anesthesia Preop lab: CBC WBC 8.4 K/mm3 (4.4-11.0) 02/05/24 05:17 RBC 3.44 M/mm3 (4.2-5.4) L 02/05/24 05:17 Hgb 10.7 g/dL (12.0-15.0) L 02/05/24 05:17 Hct 34.8 % (37-47) L 02/05/24 05:17 Plt Count 292 K/mm3 (150-450) 02/05/24 05:17 CHEMISTRY Potassium 4.7 mmol/L (3.5-5.1) 02/05/24 05:17 Sodium 138 mmol/L (136-145) 02/05/24 05:17 Magnesium 2.0 mg/dL (1.6-2.6) 02/05/24 05:17 Phosphorus 4.2 mg/dL (2.5-4.9) 02/05/24 05:17 BUN 15 mg/dL (7-18) 02/05/24 05:17 Creatinine 0.81 mg/dL (0.55-1.02) 02/05/24 05:17 Glucose 111 mg/dL (74-106) H 02/05/24 05:17 POC Glucose 106 mg/dL (74-106) 06/21/23 06:21 TSH 1.97 uIU/mL (0.358-3.74) 02/05/24 05:17 COAG PT 14.0 SECONDS (11.7-14.9) 02/05/24 07:56 Pre-Assessment Diagnosis/Proposed Procedure Planned Operative Procedure(s): reduction, possible open repair of ankle Anesthesia History Anesthesia History - funeral home director: Anesthesia History - funeral home director Hx Hospitalization Any Problems With Anesthesia Cholinesterase deficiency You/Your Family Experience fever (hyperthermia) with Relationship Recent Exposure to Contagious Disease Does patient have nerve stimulator Patient instructed to have device shut off --Does patient have Pacemaker No 02/05/24 08:59 or ICD? When Was Last Pacemaker Check QUESTION #4 FULL TEXT: You/Your Family Experience fever (hyperthermia) with Anesthesia Last Oral Intake Last Oral intake: Last Oral Intake NPO since 09:00 02/05/24 08:59 Meds taken in AM with sips of Yes 02/05/24 08:59 water? Meds patient instructed to take am of surgery PONV PONV - funeral home director: PONV - funeral home director Female HX of Motion Sickness HX of N/V After Surgery Non-Smoker Duration of Surgery greater than 60 minutes Number of Risk Factors PONV Score Height & Weight Height & Weight: Anesthesia: Height & Weight Height 5 ft 1.02 in 02/05/24 08:59 Weight: 67 kg 02/05/24 08:59 Body Mass Index (BMI) 27.8 02/05/24 08:59 Respiratory Assessment Respiratory Assessment - funeral home director: Respiratory Tract Infection Hx - funeral home director Hx Respiratory Tract Infection STOP Sleep Apnea STOP Sleep Apnea - funeral home director: STOP Sleep Apnea - funeral home director Hx Hypertension Yes 02/04/24 21:55 Hx Sleep Apnea No 02/04/24 21:55 CPAP BIPAP Do you snore loudly (louder No 02/04/24 21:55 than talking or can be heard Do you often feel tired/ No 02/04/24 21:55 fatigued/ sleepy during daytime? Has anyone observed you stop No 02/04/24 21:55 breathing during sleep? STOP Results Negative 02/04/24 21:55 QUESTION #5 FULL TEXT : Do you snore loudly (louder than talking or can be heard through closed doors)? Tobacco Use History Tobacco Use History - funeral home director: Tobacco Use History - funeral home director Tobacco Use Smoking Status Former smoker 02/04/24 21:55 Hx Tobacco Use No 02/04/24 21:55 Years Smoking Packs Smoked per Day Smoking Cessation Date was No - quit smoking greater 02/04/24 21:55 within the last 15 years than 15 years ago Hx Smoking Cessation Date 07/31/83 02/04/24 21:55 Hx Smoking Cessation Counseling Hematologic Medial History Hematologic Hx - funeral home director: Hematologic Medical Hx - field case manager Hx of Blood Transfusion No 02/04/24 21:55 Hx of Transfusion in last 3 No 02/04/24 21:55 Months Date of Last Transfusion (if within last 3 months) Ever experience any problems No 02/04/24 21:55 with transfusion(s)? Specify any problems Hx of Preganancy in last 3 N/A 02/04/24 21:55 Months Nurse Filling Out Transfusion CSIGNORIN 02/04/24 21:55 & Questions: Date: 02/04/24 02/04/24 21:55 Time: 21:57 02/04/24 21:55 Patient unable to answer at this time (ie. confused, unrespo /Reproduction History /Reproductive History - funeral home director: /Reproductive Hx- funeral home director Hx Now Gestational Age (in weeks): EDC: Hx Hx Para Hx Section SAB Active Medications Active Medications: Current Medications Generic Name Dose Route Start Last Admin Trade Name Freq PRN Reason Stop Dose Admin Acetaminophen 1,000 mg 02/05/24 07:30 02/05/24 14:14 Acetaminophen 500 Mg Tablet PO 1,000 mg Q8 MASON Administration Albuterol Sulfate 2.5 mg 02/04/24 21:39 Albuterol 2.5 Mg/3 Ml Vial.Neb. INHALATION Q2H PRN PRN SOB &/OR WHEEZING Amlodipine Besylate 2.5 mg 02/05/24 10:00 02/05/24 08:04 Amlodipine 2.5 Mg Tablet PO 2.5 mg DAILY MASON Administration Protocol Escitalopram Oxalate 20 mg 02/05/24 10:00 02/05/24 08:03 Escitalopram Oxalate 20 Mg Tablet PO 20 mg DAILY MASON Administration Hydromorphone HCl 0.5 mg 02/05/24 07:25 02/05/24 11:29 Hydromorphone 0.5 Mg/0.5 Ml Syringe IV 0.5 mg Q3H PRN PRN Administration Pain Score 6-10 Sodium Chloride 1,000 mls @ 70 mls/hr 02/04/24 20:10 02/05/24 15:22 IV 0 mls/hr .[id number] MASON Infusion Sodium Chloride 250 mls @ 15 mls/hr 02/04/24 21:42 IV .[id number] PRN Additional IVPB Infusion Sodium Chloride 250 mls @ 15 mls/hr 02/04/24 21:42 IV .[id number] PRN Saline Flush Lactated Ringer's 1,000 mls @ 15 mls/hr 02/05/24 16:00 02/05/24 15:48 IV 15 mls/hr .Q48H MASON Administration Magnesium Hydroxide 30 ml 02/04/24 21:39 Magnesium Hydroxide 30 Ml Udc PO DAILY PRN PRN Constipation Meclizine HCl 25 mg 02/05/24 03:05 02/05/24 08:04 Meclizine Hcl 25 Mg Tablet PO 25 mg TID PRN PRN Administration DIZZINESS Melatonin 3 mg 02/04/24 21:39 Melatonin 3 Mg Tablet PO QHS PRN PRN INSOMNIA Oxycodone HCl 5 mg 02/05/24 07:24 02/05/24 08:57 Oxycodone 5 Mg Tablet PO 5 mg Q4H PRN PRN Administration Pain Score 4-10 Pantoprazole Sodium 40 mg 02/05/24 10:00 02/05/24 08:04 Pantoprazole Sodium 40 Mg Tablet PO 40 mg DAILY MASON Administration Promethazine HCl 25 mg 02/04/24 21:39 Promethazine 25 Mg/Ml Syringe IM Q6H PRN PRN Breakthrough nausea/vomiting Sodium Chloride 10 - 40 ml 02/04/24 21:42 02/05/24 11:28 0.9% Saline Lock 10 Ml Syringe IV 10 ml UD PRN Administration SALINE FLUSH Timolol Maleate 1 drp 02/04/24 22:25 02/05/24 08:05 Timolol 0.5% 5ml Opth.Btl EACH EYE 1 drp BID MASON Administration PFSH Medical History Ankle fracture, right Hypertension NSTEMI (non-ST elevated myocardial infarction) (06/21/23) Atherosclerotic heart disease of [place] coronary artery without angina pectoris (06/21/23) Elevated liver enzymes Polymyositis Right rib fracture FHx: cholecystectomy Bronchitis Home Medications ?Medication ?Instructions ?Recorded ?Last Taken ?Type escitalopram oxalate 20 mg tablet 20 mg PO DAILY 06/20/23 Unknown History omeprazole 40 mg capsule,delayed 40 mg PO DAILY 06/20/23 Unknown History release amlodipine 10 mg tablet 2.5 mg PO DAILY 10/23/23 Unknown History hydrocodone-acetaminophen 5-325mg 1 tab PO Q6H PRN PRN Pain 3 days 02/04/24 Unknown Rx 5mg-325mg #10 TABLETS timolol maleate 0.5 % eye drops 1 drp ophthalmic (eye) BID 02/04/24 02/04/24 History Allergy/AdvReac Type Severity Reaction Status Date / Time erythromycin base Allergy Hives Verified 11/15/23 05:00 codeine AdvReac Upset Verified 11/15/23 05:00 Stomach morphine AdvReac Nausea Verified 02/04/24 15:39 Social History household members: spouse Smoking Status: Former smoker substance use type: does not use Review of Systems (Anesthesia) ROS Narrative System reviewed and no additional complaints, except as documented.
--- NOTE | 2024-02-05 17:03 | CON.PCM_ITS ---
Assessment & Plan Assessment/Plan (1) Closed fracture dislocation of right ankle: QUALIFIERS: Encounter type: initial encounter Qualified Code(s): S82.891A - Other fracture of right lower leg, initial encounter for closed fracture PLAN: Patient was examined evaluated. All findings were discussed with the patient. All questions were answered to the patient satisfaction. 3 view nonweightbearing radiographs taken in the emergency room that show evidence of dislocated ankle fracture which is trimalleolar in nature. Postreduction films were adequate but still show evidence of the medial malleolus and the level of the ankle joint, as well as the mortise and a valgus attitude. Plan for taking the patient to the operating room to perform closed reduction under general anesthesia and with application of external fixator. Following surgery plan will be for a CT scan of the right lower extremity for surgical planning. Medicine: On board, medical management PT/OT: On board Social work: Assisting with discharge planning. Please reach out to Dr. Mae with any questions or concerns. Thank you for the consultation! (2) Trimalleolar fracture of ankle, closed: QUALIFIERS: Encounter type: initial encounter Laterality: right Qualified Code(s): S82.851A - Displaced trimalleolar fracture of right lower leg, initial encounter for closed fracture (3) Right ankle pain: QUALIFIERS: Chronicity: acute Qualified Code(s): M25.571 - Pain in right ankle and joints of right foot HPI Consult Data Date of Consult: 02/05/24 HPI Narrative Reason for Consultation: Right lower extremity dislocated ankle fracture HPI Narrative: JAIMIE TORRES, is a 83 F with a past medical history of essential hypertension, overweight; with BMI of 28.7 present on admission, remote history of tobacco abuse, CAD; s/p NSTEMI (05/2023), history of polymyositis; on MTX, history of bronchitis, depression, history of elevated LFT's, history of cholecystectomy, GERD, history of Right rib fracture and OA who presents to [facility] ER complaining of Right ankle fracture after fall. Patient states that she was gardening outside when she fell over the wall of her flower bed causing her to trip and then she heard a loud snap and then pain to the right ankle. She states that the pain developed after the trauma. She denies losing consciousness or significant injuring her head with her fall as she fell onto the grass. In the emergency room, radiographs confirmed a dislocated right ankle fracture. Closed reduction was attempted but still showed evidence of a dislocation with the medial malleolus and the level of the ankle joint. Due to the nature of the dislocated ankle fracture as well as tenting on the medial ankle skin and concern for breakdown in skin and possible infection the patient will be taken to the operating room today to perform closed reduction under general anesthesia with application of external fixator. The patient denied any constitutional symptoms. No other pedal complaints at this time. FORMERLY [facility] Medical History Ankle fracture, right Hypertension NSTEMI (non-ST elevated myocardial infarction) (06/21/23) Atherosclerotic heart disease of [place] coronary artery without angina pectoris (06/21/23) Elevated liver enzymes Polymyositis Right rib fracture FHx: cholecystectomy Bronchitis Home Medications ?Medication ?Instructions ?Recorded ?Last Taken ?Type escitalopram oxalate 20 mg tablet 20 mg PO DAILY 06/20/23 Unknown History omeprazole 40 mg capsule,delayed 40 mg PO DAILY 06/20/23 Unknown History release amlodipine 10 mg tablet 2.5 mg PO DAILY 10/23/23 Unknown History hydrocodone-acetaminophen 5-325mg 1 tab PO Q6H PRN PRN Pain 3 days 02/04/24 Unknown Rx 5mg-325mg #10 TABLETS timolol maleate 0.5 % eye drops 1 drp ophthalmic (eye) BID 02/04/24 02/04/24 History Allergy/AdvReac Type Severity Reaction Status Date / Time erythromycin base Allergy Hives Verified 11/15/23 05:00 codeine AdvReac Upset Verified 11/15/23 05:00 Stomach morphine AdvReac Nausea Verified 02/04/24 15:39 Social History household members: spouse Smoking Status: Former smoker substance use type: does not use Physical Exam Narrative Vascular: DP and PT pulse are palpable. CFT is brisk. Evidence of ecchymosis appreciated to the right lower extremity. No evidence of fracture blisters at this time. Neurological: Light touch intact. Patient response to painful stimuli. Dermatological: Evidence of hematoma appreciated to the medial malleolus with tenting of skin. No open lesions or abrasions. Musculoskeletal: Muscle strength was deferred. Moderate palpatory tenderness appreciated to the distal fibula, medial malleolus at the level of the tenting of skin. Active and passive range of motion is pain-free. No pain with calf compression. Lab / Micro Data 02/05/24 05:17 02/05/24 05:17 Labs: Laboratory Results - last 24 hr 02/05/24 05:17: WBC 8.4, RBC 3.44 L, Hgb 10.7 L, Hct 34.8 L, MCV 101.2 H, MCH 31.1, MCHC 30.7 L, RDW Std Deviation 52.2 H, RDW Coeff of Juanito 14.1, Plt Count 292, MPV 11.1, Immature Gran % (Auto) 0.400, Neut % (Auto) 60.4, Lymph % (Auto) 22.1, Door % (Auto) 14.0 H, Eos % (Auto) 2.3, Baso % (Auto) 0.8, Absolute Neuts (auto) 5.1, Absolute Lymphs (auto) 1.86, Nucleated RBC % 0, Sodium 138, Potassium 4.7, Chloride 105, Carbon Dioxide 29.0, Anion Gap 4 L, BUN 15, Creatinine 0.81, Estim Creat Clear Calc 46.90, Est GFR (MDRD) Af Amer 87, Est GFR (MDRD) Non-Af 72, BUN/Creatinine Ratio 18.5, Glucose 111 H, Calcium 9.1, Phosphorus 4.2, Magnesium 2.0, Total Bilirubin 0.60, AST 376 H, ALT 234 H, Alkaline Phosphatase 88, Total Protein 6.9, Albumin 3.4, Globulin 3.5, Albumin/Globulin Ratio 1.0, TSH 1.97 02/05/24 07:56: PT 14.0, INR 1.1 Imaging Radiology Impression Ankle X-Ray 02/04/24 17:25 IMPRESSION: Fracture lateral malleolus. Fracture of the medial malleolus. Overlying soft tissue swelling. Anterior dislocation of the ankle. Electronically Signed: Dionte Amezcua MD at 18:04 EDT Reading Location ID and State: [facility] / [place] , Service support ,
--- NOTE | 2024-02-05 17:04 | OP.PCM_ITS ---
Problems Associated Problem List Diagnoses (1) Closed fracture dislocation of right ankle: (2) Closed bimalleolar fracture of right ankle: (3) Right ankle pain: Report of Operation Date of Procedure: 02/05/24 Pre-Operative Diagnosis: 1. Trimalleolar ankle fracture, right lower extremity 2. Dislocated right ankle fracture, right lower extremity 3. Pain, right ankle Post-Operative Diagnosis: 1. Trimalleolar ankle fracture, right lower extremity 2. Dislocated right ankle fracture, right lower extremity 3. Pain, right ankle Surgery/Procedure Performed:: 1. Right lower extremity closed reduction under sedation 2. Application of external fixator, right lower extremity Description of Surgical Findings:: 1. Evidence of dislocated ankle fracture prior to close reduction. 2. Operative close reduction films show fibula is out to length with intact dime sign and the mean malleolus is in relative anatomical position. There is evidence of a slightly superior dislocation to the posterior malleolus. 3. After close reduction the tenting of skin to the main malleolus showed evidence of increase in soft tissue volume with no solid bone pressing against the skin. 4. Successful application external fixator, right lower extremity Surgeon: Eddi Mae black jack dealer: None Type of Anesthesia: Block,Regional, General and Local Anesthesiologist: Yan Glass Special Medications: Per anesthesia Specimen's removed: None Drains: None Estimated Blood Loss (mL): 10 mL Fluids Replaced: Per anesthesia Description of Procedure: Indications For Operation: Mrs. Britt is a 83-year-old female who was admitted to [facility] for right lower extremity ankle dislocation after a fall at home while gardening. Patient was seen in the emergency department where she had conscious sedated closed reduction that showed evidence of adequate placement however the bones were not in anatomical position after reduction and showed evidence of the medial malleolus still displaced in the level of the ankle joint as well as tenting of the skin to the medial aspect of the right ankle. Due to the concern for breakdown of skin and possible infection it had deemed necessary at this time to take the patient to the operating room to perform closed reduction under general anesthesia with application of external fixator with surgical open reduction internal fixation of trimalleolar ankle fracture to follow in the next 2 to 3 weeks. All risk and benefits were discussed with the patient in great detail. The patient agrees to move forward with the procedure above. The nature of the problem, anticipated procedures, postop recovery/convalences and risk/complications include but not limited to infection, wound healing complications, digital amputation, hypertrophic scarring, numbness, tingling, chronic pain, CRPS, over and under correction, recurrence of deformity, DVT and or PE and the need for further surgery have been discussed in great detail with the patient. All questions have been answered to the patient's satisfaction. There are no guarantees given as to the outcome of the procedure. Description of Procedure: Under mild sedation, the patient was brought into the operating room and placed on the operating table in supine position. Once the patient was under general anesthesia with endotracheal tube, the right lower extremity ankle was blocked via hematoma block using 1% lidocaine plain to the right ankle. The patient will be getting a popliteal block post surgery per anesthesia, please see anesthesia notes for further detail. No tourniquet was used for this case. Next, the right lower extremity was prepped and draped in normal aseptic manner. Next, a timeout was then undertaken verifying the correct patient, extremity, visibility of preoperative markings, availability of the equipment. Procedure #1: Closed reduction of dislocated ankle fracture right lower extremity under general anesthesia Next, tension was directed to the right lower extremity. Using large C-arm fluoroscopy that showed evidence of nonanatomic alignment of the fibula and medial malleolus of the right lower extremity. Using closed reduction principles, the dislocation was exaggerated and a valgus position following increase in distraction the right lower extremity was supinated and held in position using the quickly maneuver. C arm fluoroscopy was used to check alignment and there showed evidence of anatomical alignment with intact dime sign to the fibula as well as the medial malleolus back into anatomical position. The lateral view with the C-arm showed evidence of a mildly displaced superiorly posterior malleolus fracture fragment. Procedure #2: Application of external fixator, right lower extremity Next, x2 5mm Schanz pins were placed in the tibia bi-cortically, which were checked under fluoroscopy. One of the Schanz pins were removed due to ill adequate alignment with the proximal clamp. At this time, a third 5 mm Schanz pin was placed perpendicular to the tibia bicortically allowing the proximal clamp to be parallel to the long axis of the tibia. Next, using fluoroscopy the appropriate starting point on calcaneus was used for the transcalcaneal crossing pin. Once identified, a single central threaded calcaneal pin was placed across the calcaneus parallel to the joint surface. After placement of all the pins, external fixator/frame was then applied and traction with attempts to get and hold the distal fibular fracture, medial malleolus and posterior malleolus out to length. It was noted and checked with fluoroscopy that the fracture fragment/fibula and medial malleolus were in adequate position in the sagittal and coronal planes, external fixator apparatus was then locked in place with the manufactures T-handle and per the head of housekeeping's recommendations. The posterior malleolus fracture showed evidence of a superior dislocation which will have to be fixed when the patient is brought back for open reduction internal fixation. X-ray images were taken to verify correct placement of the hardware and adequate alignment of the fracture again. The Schanz pins were were capped using sterile blue caps that were placed over the blunt ends. The removed a Steinmann pin incision was flushed with copious ousmane of normal saline, followed by application of 2.5 cc of demineralized bone matrix. The skin was reapproximated closed with over and over stitch using 3-0 nylon. The Schanz pin and calcaneal crossing pin sits were dressed with Betadine soaked gauze, dry sterile dressing, web roll, and secured in place with a 4 inch Karri bandage. The patient tolerated the procedure and anesthesia well and apparent satisfactory condition and was transported to the PACU for further monitoring prior to discharge back to the floor. Vital signs stable and vascular status intact to all digits bilateral. Post Operative Plan: Weightbearing: Nonweightbearing to right lower extremity. Full weightbearing to left lower extremity. Antibiotics: 900 mg clindamycin through the IV DVT Prophylaxis: I recommend 40 mg Lovenox Mari: None Dressing: Betadine soaked gauze, dry sterile dressing and a single-layer Murillo compression bandage to the right lower extremity. X-Rays: Post-operative films taken on the operating room. Pain Medication: Per medicine Follow-up: At this time the patient is cleared from podiatry to discharge to a penitentiary facility. I do not recommend the patient to be discharged home. The patient will need to be optimized prior to definitive procedure in the next 2 to 3 weeks for booking time. Grafts/Implants Used: None Complications None Admit VTE Documentation VTE Present on Admission: No VTE Mechan Device Prophylaxis: SCD's VTE Pharm Prophylaxis ordered?: Yes
[2024-02-05] MEDS: Clindamycin 900 MG/50 ML BAG 75 MG IV (17:14)
[2024-02-05] MEDS: Lidocaine 1% (30 ml sdv) 30 ML Vial (17:18)
--- NOTE | 2024-02-05 18:10 | PCM.POST.ANE ---
Anesthesia: Postop Eval I Current Vital Signs Temperature: 97.7 F Pulse Rate: 78 Blood Pressure: 115/60 Respiratory Rate: 16 Pulse Ox: 95 Oxygen Delivery Method: Venturi Mask Oxygen Flow Rate (L/min): 6 Assessment Airway patent: Yes Spontaneous unlabored respirations: Yes Mental status: Calm and Asleep nausea: No Vomiting: No Anesthesia Complication: No Fluid Hydration Crystalloid volume administer (ml): 800 Total IV fluid infused: 800 Progress Note Anesthesia document: Postop Eval 1 completed: Yes
--- NOTE | 2024-02-05 18:37 | POSTOPAN2_ITS ---
Anesthesia Postop Eval I Sum Postop Eval Completion status Anesthesia document: Postop Eval 1 completed: Yes Anesthesia Postop Eval I Summary Anesthesia Postop Eval I Summary: Anesthesia Postop Eval I: Assessment Summary Airway patent Yes 02/05/24 18:16 [email or web address] [email or web address] Spontaneous unlabored Yes 02/05/24 18:16 WHEEL [email or web address] respirations Mental status Calm,Asleep 02/05/24 18:16 [email or web address] [email or web address] nausea No 02/05/24 18:16 WHEEL [email or web address].MDOT Vomiting No 02/05/24 18:16 WHEEL [email or web address] Anesthesia Postop Eval I: Fluid Summary Crystalloid volume administer 800 02/05/24 18:16 WHEEL [email or web address].MDOT (ml) Colloids volume administered ( ml) Blood Product volume administered (ml) Total IV fluid infused 800 02/05/24 18:16 WHEEL [email or web address].[email or web address] Anesthesia Postop Eval I: Summary Notes Anesthesia Complication No 02/05/24 18:16 WHEEL [email or web address].YANNICK Anesthesia Complication Comment: Post-operative progress note Anesthesia: Postop Eval II Evaluation Mental status: Calm and Asleep Pain Level: 0 nausea: No Vomiting: No Progress Note Post-operative progress note: post op block completed Complications Anesthesia Complication: No
--- NOTE | 2024-02-05 18:37 | PCM.POSTANE2 ---
Anesthesia Postop Eval I Sum Postop Eval Completion status Anesthesia document: Postop Eval 1 completed: Yes Anesthesia Postop Eval I Summary Anesthesia Postop Eval I Summary: Anesthesia Postop Eval I: Assessment Summary Airway patent Yes 02/05/24 18:16 [email or web address] [email or web address] Spontaneous unlabored Yes 02/05/24 18:16 LINEN [email or web address] respirations Mental status Calm,Asleep 02/05/24 18:16 LINEN [email or web address] nausea No 02/05/24 18:16 LINEN [email or web address] Vomiting No 02/05/24 18:16 LINEN [email or web address] Anesthesia Postop Eval I: Fluid Summary Crystalloid volume administer 800 02/05/24 18:16 LINEN [email or web address] (ml) Colloids volume administered ( ml) Blood Product volume administered (ml) Total IV fluid infused 800 02/05/24 18:16 LINEN MANAGER.[email or web address] Anesthesia Postop Eval I: Summary Notes Anesthesia Complication No 02/05/24 18:16 LINEN MANAGER.[email or web address] Anesthesia Complication Comment: Post-operative progress note Anesthesia: Postop Eval II Evaluation Mental status: Calm and Asleep Pain Level: 0 nausea: No Vomiting: No Progress Note Post-operative progress note: post op block completed Complications Anesthesia Complication: No
--- NOTE | 2024-02-05 18:42 | SUR.PHASEI ---
1820: Patient arrived from OR, needing Nasal Pharyngeal airway to be placed. patient obstructing. patient saturations dropped in 70s. patient was able to recover with nonrebreather and NPA. will continue to monitor in pacu.
--- NOTE | 2024-02-05 19:09 | SUR.PHASEI ---
patient woke up at this time. easily arousable. NPA removed
--- NOTE | 2024-02-05 20:11 | CT_ITS ---
EXAM: CT RIGHT LOWER EXTREMITY WITHOUT INTRAVENOUS CONTRAST CLINICAL INDICATION: Post right lower extremity closed reduction TECHNIQUE: Helically acquired images were obtained of the right lower extremity without intravenous contrast. 2-D reformats were performed by the technologist. This CT exam was performed using one or more of the following dose reduction techniques: automated exposure control, adjustment of the mA and/or kV according to patient size, and/or use of iterative reconstruction technique. COMPARISON: Ankle radiograph, 02/04/2024 FINDINGS: BONES/JOINTS: Status post trimalleolar fracture. Minimally comminuted distal fibular fracture at and above the level of the mortise space with approximately 3 mm displacement of the major fracture fragments. Approximately 3 mm displacement of the medial malleolus fracture, and less than 2 mm displacement of the comminuted posterior malleolus fracture. The talus is translated posteriorly in relation to the tibial on by approximately 8 mm and there is asymmetric widening of the anterior aspect of the mortise space. Calcaneal spurs. No sclerotic or destructive changes. SOFT TISSUES: Extensive soft tissue swelling. No radiopaque foreign body. VASCULATURE: Vascular calcifications. TUBES, LINES AND DEVICES: External fixation device present. CT/Extremity Lower without Contra IMPRESSION: Status post external fixation device placement for trimalleolar fracture. Mild posterior subluxation of the talus in relation to the tibial plafond. Electronically Signed: Jaxson Montes DO at 21:09 EDT ,
[2024-02-06 02:46] VITALS: BMI 30.4
[2024-02-06 04:46] VITALS: BP 134/70; PULSE 62; RESP 15; TEMP 36.5; O2SAT 98
[2024-02-06] MEDS: Acetaminophen 500 MG Tablet 1000 MG PO ×3 (05:37→22:31)
[2024-02-06] MEDS: 0.9% Normal Saline (1000mL) 1,000 ML 70 ML IV ×2 (06:07→18:10)
[2024-02-06 06:59] LABS: Hematocrit 29.5 % (37-47); Hemoglobin 9.5 g/dL (12.0-15.0); Mean Corp Hgb Conc 32.2 g/dL (32-36); Mean Corpuscular Hgb 31.9 pg (27.0-32.0); Mean Platelet Vol. 10.6 fl (6.2-12.0); Platelet Count 241 K/mm3 (150-450); RBC Distribution Width CV 13.8 % (11.6-14.6); RBC Distribution Width SD 49.4 fl (35.1-43.9); Red Blood Count 2.98 M/mm3 (4.2-5.4); White Blood Count 6.8 K/mm3 (4.4-11.0)
[2024-02-06 07:21] LABS: ALB/GLOB Ratio 0.9 RATIO (0.9-2.4); AST(SGOT) 222 U/L (15-37); Alanine Aminotransfer ALT/SGPT 300 U/L (13-56); Albumin, Serum 3.1 g/dL (3.2-5.0); Alkaline Phosphatase 106 U/L (45-117); Anion Gap 6 (5-15); BUN 10 mg/dL (7-18); BUN/Creat Ratio 13.4 RATIO (10-20); Calcium,Total 8.8 mg/dL (8.5-10.1); Chloride 106 mmol/L (98-107); Creatinine, Serum 0.75 mg/dL (0.55-1.02); EST Glomerular Filtration Rate 79 mL/min (>60); Est Glom Filt Rate - Afr Amer 95 mL/min (>60); Estimated Creatinine Clearance 49.61 ml/min; Globulin 3.3 g/dL (2.2-4.2); Glucose 105 mg/dL (74-106); Potassium 4.2 mmol/L (3.5-5.1); Protein, Total 6.4 g/dL (6.4-8.2); Sodium Level 138 mmol/L (136-145)
--- NOTE | 2024-02-06 07:40 | PN.SURG_ITS ---
Subjective Subjective Mrs. Britt is a 83-year-old female seen at bedside today for follow-up and evaluation of application of external fixator secondary to dislocated ankle fracture to right lower extremity. Patient denies any pain and states she has some tingling with certain movements of her right lower extremity. She admits that prior to the procedure she was having pain to the right lower extremity and now is pretty much pain-free. She is grateful for her care. She states she is feeling much better after her procedure. Patient is understanding and willing to go to detention facility for rehab and plan for outpatient open reduction total fixation of right lower extremity ankle fracture in 2 weeks. No acute events overnight. Denies constitutional symptoms. No other pedal complaints at this time. Objective Data Objective Data Vital Signs: Vital Signs Temp Pulse Resp BP Pulse Ox O2 Del Method O2 Flow Rate 97.7 F L 62 15 134/70 H 98 Room Air 2 02/06/24 04:46 02/06/24 04:46 02/06/24 04:46 02/06/24 04:46 02/06/24 04:46 02/06/24 06:14 02/06/24 04:46 FiO2 100 02/04/24 17:12 Oxygen Flow Rate (L/min) [3] 2 Oxygen Flow Rate (L/min) [1 ( 4 Initial Baseline)] Oxygen Flow Rate (L/min) 2 Oxygen Delivery Method [3] Nasal Cannula Oxygen Delivery Method [2] Non-Rebreather Oxygen Delivery Method [1 ( Nasal Cannula Initial Baseline)] Oxygen Delivery Method Room Air Weight: 73.2 kg Body Mass Index (BMI) 30.4 Intake & Output: Intake and Output for Last 24 Hours 02/04/24 02/05/24 02/06/24 23:59 23:59 23:59 Intake Total 1982.0 / 1982.0 823.5 / 823.5 Output Total 1125 / 1125 1400 / 1400 Balance 857.0 / 857.0 -576.5 / -576.5 Lab / Micro Data 02/06/24 06:35 02/06/24 06:35 Labs: Laboratory Results - last 24 hr 02/05/24 07:56: PT 14.0, INR 1.1 02/06/24 06:35: WBC 6.8, RBC 2.98 L, Hgb 9.5 L, Hct 29.5 L, MCV 99.0, MCH 31.9, MCHC 32.2, RDW Std Deviation 49.4 H, RDW Coeff of Juanito 13.8, Plt Count 241, MPV 10.6, Sodium 138, Potassium 4.2, Chloride 106, Carbon Dioxide 26.0, Anion Gap 6, BUN 10, Creatinine 0.75, Estim Creat Clear Calc 49.61, Est GFR (MDRD) Af Amer 95, Est GFR (MDRD) Non-Af 79, BUN/Creatinine Ratio 13.4, Glucose 105, Calcium 8.8, Total Bilirubin 0.70, AST 222 H, ALT 300 H, Alkaline Phosphatase 106, Total Protein 6.4, Albumin 3.1 L, Globulin 3.3, Albumin/Globulin Ratio 0.9 Radiography Diagnostic Testing: Radiology Impression Ankle X-Ray 02/05/24 16:00 IMPRESSION: 15 fluoroscopic images utilized by the operative team. Refer to the operative note for complete details. Electronically Signed: Jaxson Montes DO at 19:08 EDT , Lower Extremity CT 02/05/24 20:11 IMPRESSION: Status post external fixation device placement for trimalleolar fracture. Mild posterior subluxation of the talus in relation to the tibial plafond. Electronically Signed: Jaxson Montes DO at 21:09 EDT , Physical Exam Narrative Neurovascular status unchanged. Application of external fixation to the right lower extremity with no evidence of failure. Evidence of mild strikethrough to the proximal postoperative dressing. Active and passive range of motion of the digits is pain-free. No pain with calf compression. Assessment & Plan Assessment/Plan (1) Closed fracture dislocation of right ankle: QUALIFIERS: Encounter type: initial encounter Qualified Code(s): S82.891A - Other fracture of right lower leg, initial encounter for closed fracture PLAN: Patient was examined evaluated. All findings were discussed with the patient. All questions were answered to the patient aspect. The patient is recovering well from her closed reduction under general anesthesia with application of external fixator to the right lower extremity. DOS: 02/05/2024. POD #1. Patient denies any pain to right lower extremity. Postoperative CT scan shows evidence of comminution appreciated to the fibula, medial malleolus and posterior malleolus. Wound care nurse notified of dressing changes to the right lower extremity external fixator. Medicine: On board medical management PT/OT: Reconsulted for postop eval Social work: On board for discharge planning Podiatry at this time recommend SNF placement due to the patient not having support at home. Patient is understanding of this. After interview with the patient today she is cleared from podiatry perspective to discharge to SNF when improved, and cleared by medicine team. Please reach out to Dr. Mae with any questions or concerns. Thank you for letting me be involved in the patient's care. (2) Trimalleolar fracture of ankle, closed: QUALIFIERS: Encounter type: initial encounter Laterality: right Qualified Code(s): S82.851A - Displaced trimalleolar fracture of right lower leg, initial encounter for closed fracture (3) Right ankle pain: QUALIFIERS: Chronicity: acute Qualified Code(s): M25.571 - Pain in right ankle and joints of right foot
[2024-02-06] MEDS: Pantoprazole Sodium 40 MG Tablet PO (09:23)
[2024-02-06] MEDS: Escitalopram Oxalate 20 MG Tablet PO (09:23)
[2024-02-06] MEDS: Timolol 0.5% 5ML OPTH.BTL 1 DRP EACH EYE (09:23)
[2024-02-06] MEDS: Enoxaparin 40 MG/0.4 ML Syringe SC (09:30)
[2024-02-06 10:00] VITALS: BP 97/67; PULSE 70; RESP 14; TEMP 36.4; O2SAT 94
--- NOTE | 2024-02-06 10:05 | CASEMGMT ---
Addendum entered by Carmela Parsons 02/06/24 15:02: [facility]- [facility]cert. [facility], pending precert CINDA Bryant Addendum entered by aCrmela Parsons 02/06/24 11:21: Social Work- [facility] accepted referral. Pt advised. Plan: [facility]; skilled CINDA Bryant Original Note: Social Work- Pt requested referral to TCU. TCU was unable to accept pt referral. A list of SNF providers including quality and resource use data and consistent with the patient?s preferred geographic region, medical needs, and insurance network were provided from the [facility] Guide. Pt [facility] choice was [facility] followed by [facility]. Pt reports that she needs to be close, as does not see well and needs to be able to drive to visit as all we have is each other. Pt reports that pt spouse was tearful and anxious prior to surgery and hugged dr when surgery was completed. Pt states that spouse will be able to prepare his own food while she is gone and has a medical alert button, as he has afib. Pt states that there are family members to check-in with pt spouse to verify well-being. Pt reports that she feels 'better' about being away at rehab, knowing plans are made for spouse. SW completed [facility]. DCA advised. CINDA Bryant
--- NOTE | 2024-02-06 10:33 | CASEMGMT ---
Addendum entered by Melissa Santa 02/07/24 09:36: Correction to last note, evals were [facility] to [facility] for precert. Melissa Santa DC Planning Asst. Addendum entered by Melissa Santa 02/06/24 14:32: Therapy evals sent to [facility]. Asked for precert to be started. Melissa Santa DC Planning Asst. Original Note: [facility] [place] accepted patient. Precert will be started once pt has been seen by therapy. Melissa Santa DC Planning Asst.
--- NOTE | 2024-02-06 11:53 | PN.HOSP_ITS ---
Reason for Visit Reason for Visit: Diagnoses Pain in right ankle and joints of right foot (02/06/24) Difficulty in walking, not elsewhere classified (02/06/24) Dizziness and giddiness (02/06/24) Weakness (02/06/24) Displaced bimalleolar fracture of right lower leg, initial encounter for closed fracture (02/06/24) Displaced trimalleolar fracture of right lower leg, initial encounter for closed fracture (02/06/24) Other fracture of right lower leg, initial encounter for closed fracture (02/06/24) Unspecified fall, initial encounter (02/06/24) Subjective Subjective Saw patient at bedside this morning. Patient was laying comfortably in bed, conversing normally, in no acute distress. She had large external fixator device on her lower right leg with the right ankle wrapped with Karri wrap. She denied any acute pain or discomfort in the leg or ankle. She had not been out of bed yet this morning. Current plan per podiatry is for another surgical procedure in 2 to 3 weeks for internal surgical fixation, so she will have this external fixator device in place until then. Patient agreeable to planning for SNF on discharge. No other acute concerns this morning. Objective Data Objective Data Vital Signs: Vital Signs Temp Pulse Resp BP Pulse Ox O2 Del Method O2 Flow Rate 97.5 F L 70 14 97/67 94 Room Air 2 02/06/24 10:00 02/06/24 10:00 02/06/24 10:00 02/06/24 10:00 02/06/24 10:02/06/24 10:00 02/06/24 04:46 FiO2 100 02/04/24 17:12 Oxygen Flow Rate (L/min) [3] 2 Oxygen Flow Rate (L/min) [1 ( 4 Initial Baseline)] Oxygen Flow Rate (L/min) 2 Oxygen Delivery Method [3] Nasal Cannula Oxygen Delivery Method [2] Non-Rebreather Oxygen Delivery Method [1 ( Nasal Cannula Initial Baseline)] Oxygen Delivery Method Room Air Weight: 73.2 kg Body Mass Index (BMI) 30.4 Intake & Output: Intake and Output for Last 24 Hours 02/04/24 02/05/24 02/06/24 23:59 23:59 23:59 Intake Total 1982.0 / 1982.0 823.5 / 823.5 Output Total 1125 / 1125 1999 Balance 857.0 / 857.0 -1176.5 / -1176.5 Lab / Micro Data 02/06/24 06:35 02/06/24 06:35 Labs: Laboratory Results - last 24 hr 02/06/24 06:35: WBC 6.8, RBC 2.98 L, Hgb 9.5 L, Hct 29.5 L, MCV 99.0, MCH 31.9, MCHC 32.2, RDW Std Deviation 49.4 H, RDW Coeff of Juanito 13.8, Plt Count 241, MPV 10.6, Sodium 138, Potassium 4.2, Chloride 106, Carbon Dioxide 26.0, Anion Gap 6, BUN 10, Creatinine 0.75, Estim Creat Clear Calc 49.61, Est GFR (MDRD) Af Amer 95, Est GFR (MDRD) Non-Af 79, BUN/Creatinine Ratio 13.4, Glucose 105, Calcium 8.8, Total Bilirubin 0.70, AST 222 H, ALT 300 H, Alkaline Phosphatase 106, Total Protein 6.4, Albumin 3.1 L, Globulin 3.3, Albumin/Globulin Ratio 0.9 Radiography Diagnostic Testing: Radiology Impression Ankle X-Ray 02/05/24 16:00 IMPRESSION: 15 fluoroscopic images utilized by the operative team. Refer to the operative note for complete details. Electronically Signed: Jaxson Montes DO at 19:08 EDT , Lower Extremity CT 02/05/24 20:11 IMPRESSION: Status post external fixation device placement for trimalleolar fracture. Mild posterior subluxation of the talus in relation to the tibial plafond. Electronically Signed: Jaxson Montes DO at 21:09 EDT , Physical Exam Const alert, oriented x3, no apparent distress and average body habitus Constitutional Narrative: Pleasant elderly female, laying comfortably in bed, conversing normally, in no acute distress. General Appearance: cooperative and comfortable HEENT normocephalic, head/scalp atraumatic, hearing grossly normal bilaterally, nasal mucous membranes and turbinates normal and moist oral mucous membranes Eyes PERRL, EOMs intact bilaterally and conjunctivae normal Neck full ROM Chest inspection of chest normal Resp normal respiratory effort, normal air movement, no use of accessory muscles and clear to auscultation bilaterally Cardio regular rate, regular rhythm, no murmurs and peripheral pulses 2+ throughout GI normal to inspection, nondistended, normoactive bowel sounds, soft to palpation, non-tender and non-distended Back/Spine normal ROM Extremity Extremity Narrative: External fixation device in place on right lower leg with ankle wrapped in Karri wrap, stable. Skin no rashes or lesions noted Neuro no focal motor deficits Speech: speech normal Psych mental status grossly normal Assessment & Plan Assessment/Plan (1) Closed bimalleolar fracture of right ankle: QUALIFIERS: Encounter type: initial encounter Qualified Code(s): S82.841A - Displaced bimalleolar fracture of right lower leg, initial encounter for closed fracture (2) Inability to ambulate due to right ankle or foot: PLAN: Plan Patient is an 83-year-old female who presented [facility] ED on 02/04/2024 with right ankle pain after a fall at home. 1. Right ankle fracture with acute debility ? Podiatry following. X-rays on admit confirmed fractures of the lateral malleolus and medial malleolus, anterior dislocation of the ankle and overlying soft tissue swelling. Had reduction of fracture done under sedation in the ED per podiatry recommendation with good result. However, on reevaluation by podiatry on 02/04, surgical fixation was recommended. S/p right lower extremity close reduction under sedation and application of external fixator with Dr. Mae on 02/04. Patient tolerated procedure well, no intraoperative complications. Per podiatry, planning for outpatient open reduction total fixation of right lower extremity ankle fracture in 2 weeks. PT/OT/case management following. Planning for SNF placement on discharge. Medically ready for discharge on 02/05, pre-CERT pending. Continue pain management with scheduled Tylenol, p.o. oxycodone as needed and IV Dilaudid as needed. Lovenox 40 mg daily for DVT prophylaxis. 2. Mild expected postoperative acute blood loss anemia in setting of chronic anemia ? Hemoglobin 10.7 on admit, baseline appears to be around 11. Postop CBC with hemoglobin 9.5. Repeat CBC tomorrow morning. 3. Elevated LFTs ? AST 376, ALT 234 on admit. Alk phos normal, LFTs otherwise benign and INR normal at 1.1. Unclear etiology for elevated LFTs. Patient notably has no abdominal pain. Will trend LFTs for now. Chronic medical conditions: ? History of nonobstructive CAD, hypertension: Had left heart cath in 05/2023 with nonobstructive CAD noted. Continue home amlodipine. ? GERD: Stable. Continue home omeprazole. ? Depression: Stable. Continue home escitalopram. DVT prophylaxis: Lovenox CODE STATUS: Full code, verified Expected disposition: SNF, medically ready on 02/05, awaiting placement Total clinical time spent by myself addressing the patient's medical issues, reviewing all the data, and collaborating with patient's care team: 35 minutes. Charges/Coding Visit Charges Inpatient E&M: 74019 Subs Hosp L2
[2024-02-06 14:00] VITALS: BP 101/64; PULSE 76; RESP 13; TEMP 36.4; O2SAT 93
--- NOTE | 2024-02-06 15:59 | CASEMGMT ---
Social Work- SW updated pt and spouse that [facility] has submitted for precert. SW printed pt spouse a map and directions to [facility], as he was anxious about where pt would be and how he would be able to drive to the location. PAT will continue to update as new information becomes available regarding d/c planning. CINDA Bryant
[2024-02-06 19:44] VITALS: BP 130/74; PULSE 73; RESP 16; TEMP 36.6; O2SAT 95
[2024-02-06] MEDS: Ketorolac 15 MG/ML Vial IV (20:14)
[2024-02-06 22:32] VITALS: BP 131/58; PULSE 77; RESP 18; TEMP 36.6; O2SAT 93
[2024-02-07 05:00] VITALS: BP 151/79; PULSE 85; RESP 18; TEMP 36.8; O2SAT 93
[2024-02-07] MEDS: 0.9% Normal Saline (1000mL) 1,000 ML 70 ML IV (05:38)
[2024-02-07] MEDS: Ketorolac 15 MG/ML Vial IV ×2 (05:38→12:49)
[2024-02-07] MEDS: Acetaminophen 500 MG Tablet 1000 MG PO ×2 (05:38→12:50)
[2024-02-07 06:00] VITALS: BMI 29.4
[2024-02-07 07:34] LABS: Hemoglobin 9.3 g/dL (12.0-15.0); Mean Corp Hgb Conc 32.1 g/dL (32-36); Mean Corpuscular Hgb 31.7 pg (27.0-32.0); Mean Platelet Vol. 11.2 fl (6.2-12.0); Platelet Count 258 K/mm3 (150-450); RBC Distribution Width CV 14.3 % (11.6-14.6); RBC Distribution Width SD 50.4 fl (35.1-43.9); Red Blood Count 2.93 M/mm3 (4.2-5.4); White Blood Count 8.5 K/mm3 (4.4-11.0)
[2024-02-07 07:35] VITALS: O2SAT 93
--- NOTE | 2024-02-07 08:56 | CASEMGMT ---
[facility] has obtained auth to admit. Melissa Santa DC Planning Asst.
[2024-02-07] MEDS: amLODIPine 2.5 MG Tablet PO (08:58)
[2024-02-07] MEDS: proMETHazine 25 MG/ML Syringe IM (08:59)
[2024-02-07] MEDS: oxyCODONE 5 MG Tablet PO (08:59)
[2024-02-07] MEDS: Pantoprazole Sodium 40 MG Tablet PO (08:59)
[2024-02-07] MEDS: Enoxaparin 40 MG/0.4 ML Syringe SC (09:00)
[2024-02-07] MEDS: Escitalopram Oxalate 20 MG Tablet PO (09:00)
[2024-02-07 09:57] VITALS: BP 130/62; PULSE 72; RESP 13; TEMP 36.4; O2SAT 93
--- NOTE | 2024-02-07 10:08 | WOUNDNOTE ---
wound photo: right lower leg
--- NOTE | 2024-02-07 10:08 | WOUNDNOTE ---
wound photo: right lower leg
--- NOTE | 2024-02-07 10:24 | TREXTCAR_ITS ---
Diet Diet Order/Speech Therapy: 02/05/24 20:11 Diet: Cardiac - Heart Healthy Food consistency:: Regular Liquid Consistency:: Regular/Thin Type of Dietary Supplement:: Dino Is pt able to select menu?: Yes Diet Comments: Dino BID w/ breakfast and dinner Routine Orders/Code Status Routine Lab Work: CBC (please repeat in 7 days) and - (CMP- repeat in 7 days) Code Status: Full Code Wound(s) right leg: Wound Type: small puncture site [place] with external fixator in place Dressing Change: dry dressings Therapies Weight Bearing: Partial weight bearing (okay for weight bearing on right heel) Physical Therapy: Eval and Treat Occupational Therapy: Eval and Treat Problem/Diagnosis (1) Closed bimalleolar fracture of right ankle: Status: Acute Code(s): S82.841A - Displaced bimalleolar fracture of right lower leg, initial encounter for closed fracture (2) Inability to ambulate due to right ankle or foot: Status: Acute Code(s): R26.2 - Difficulty in walking, not elsewhere classified Plan Patient is an 83-year-old female who presented [facility] ED on 02/04/2024 with right ankle pain after a fall at home. Hospital course as noted below. Discharged to SNF on 02/06 in stable condition. 1. Right ankle fracture with acute debility ? Podiatry followed. X-rays on admit confirmed fractures of the lateral malleolus and medial malleolus, anterior dislocation of the ankle and overlying soft tissue swelling. Had reduction of fracture done under sedation in the ED per podiatry recommendation with good result. However, on reevaluation by podiatry on 02/04, surgical fixation was recommended. S/p right lower extremity close reduction under sedation and application of external fixator with Dr. Mae on 02/04. Patient tolerated procedure well, no intraoperative complications. Per podiatry, planning for outpatient open reduction total fixation of right lower extremity ankle fracture in 2 weeks. PT/OT/case management following. Medically ready for discharge on 02/05, discharged to SNF on 02/06. Continue pain management with scheduled Tylenol and as needed ibuprofen on discharge. Lovenox 40 mg daily for DVT prophylaxis. 2. Mild expected postoperative acute blood loss anemia in setting of chronic anemia ? Hemoglobin 10.7 on admit, baseline appears to be around 11. Postop CBC with hemoglobin 9.5, remained stable on recheck. Follow up CBC in 7 days to ensure continued stability of hemoglobin. 3. Elevated LFTs ? AST 376, ALT 234 on admit. Alk phos normal, LFTs otherwise benign and INR normal at 1.1. Unclear etiology for elevated LFTs. Patient notably has no abdominal pain. LFTs stable during admission. Recommend repeat CMP in 7 days for further monitoring. Chronic medical conditions: ? History of nonobstructive CAD, hypertension: Had left heart cath in 05/2023 with nonobstructive CAD noted. Continue home amlodipine. ? GERD: Stable. Continue home omeprazole. ? Depression: Stable. Continue home escitalopram. Total clinical time spent by myself addressing the patient's medical issues, reviewing all the data, and collaborating with patient's care team: 35 minutes. Allergies/Procedures Done in Hospital Allergies erythromycin base Allergy (Verified 11/15/23 05:00) Hives codeine Adverse Reaction (Verified 11/15/23 05:00) Upset Stomach morphine Adverse Reaction (Verified 02/04/24 15:39) Nausea n/v Procedures: EKG and - (RLE closed reduction under sedation and application of external fixator, ankle x-ray x 3, lower extremity CT) Type of Care/Length of Stay Estimated LOS: Convalescent Care Less Than 30 days Type of Care Needed: Skilled Rehab Potential: Fair Prognosis: Fair Additional Orders/Day of Discharge H&P will serve as current which was dated: 02/04/24 Day of Discharge: 02/07/24 Discharge Plan Admission Admit Date/Time: 02/06/24 07:22 Primary Reason for Your Visit: right ankle pain Attending Provider: Kailash Samuel Primary Care Provider: Dewayne Rios Consulting Providers: Dariana Rhodes; Van Munguia Discharge Orders/Prescriptions Prescriptions: New acetaminophen 500 mg Tablet 1,000 mg PO Q8 Qty: 0 0RF enoxaparin 40 mg/0.4 mL Syringe 40 mg subcut DAILY 30 Days Qty: 0 0RF ibuprofen 400 mg tablet 400 mg PO Q8H PRN (Reason: pain) 14 Days Qty: 14 0RF Continued escitalopram oxalate 20 mg tablet 20 mg PO DAILY omeprazole 40 mg capsule,delayed release(DR/EC) 40 mg PO DAILY amlodipine 10 mg tablet 2.5 mg PO DAILY Rx Instructions: Hold for SBP less than 120 mmHg timolol maleate 0.5 % drops 1 drp ophthalmic (eye) BID Referrals / Follow Up: Eddi Mae DPM [Med Staff - Active Staff] - Dewayne Rios MD [Primary Care Provider] - Disposition Disposition (needs filled in before D/C Order can be placed): Residential Facility (1) Closed bimalleolar fracture of right ankle Qualifiers: Encounter type: initial encounter Qualified Code(s): S82.841A - Displaced bimalleolar fracture of right lower leg, initial encounter for closed fracture
--- NOTE | 2024-02-07 10:32 | DS.PCM_ITS ---
Providers Date of Admission: 02/04/24 Date of Discharge: 02/07/24 Primary Care Physician: Dr. Dewayne Rios MD Consultations 02/05/24 07:00 Consult: Podiatry Routine Consulting Provider: Van Munguia Reason for Consult: Rigth Ankle Fracture with Dislocation and inability to ambulate/go home. EMERGENT Consult: No MD Notified: Yes Date Notified: 02/05/24 Time Notified: 07:25 Method of Notification: Text Reason For Visit: RIGHT ANKLE FRACTURE AFTER FALL. Diagnosis Discharge Diagnosis (1) Closed bimalleolar fracture of right ankle: Status: Acute Code(s): S82.841A - Displaced bimalleolar fracture of right lower leg, initial encounter for closed fracture Qualifiers: Encounter type: initial encounter Qualified Code(s): S82.841A - Displaced bimalleolar fracture of right lower leg, initial encounter for closed fracture (2) Inability to ambulate due to right ankle or foot: Status: Acute Code(s): R26.2 - Difficulty in walking, not elsewhere classified Medications at Discharge Home Medications escitalopram oxalate 20 mg tablet 20 mg PO DAILY 06/20/23 omeprazole 40 mg capsule,delayed release 40 mg PO DAILY 06/20/23 amlodipine 10 mg tablet 2.5 mg PO DAILY 10/23/23 timolol maleate 0.5 % eye drops 1 drp ophthalmic (eye) BID 02/04/24 acetaminophen 500 mg tablet 1,000 mg (2 x 500 mg) PO Q8 #0 tabs 02/07/24 enoxaparin 40 mg/0.4 mL subcutaneous syringe 40 mg (0.4 mL) subcut DAILY 30 days #0 mL 02/07/24 ibuprofen 400 mg tablet 400 mg PO Q8H PRN pain 14 days #14 tabs 02/07/24 Hospital Course Operations - (RLE closed reduction under sedation and application of external fixator) Procedures EKG and - (ankle x-ray x 3, lower extremity CT) Summary of Care Provided Minutes Spent on Discharge: 35 Hospital Course: Patient is an 83-year-old female who presented [facility] ED on 02/04/2024 with right ankle pain after a fall at home. Hospital course as noted below. Discharged to SNF on 02/06 in stable condition. 1. Right ankle fracture with acute debility ? Podiatry followed. X-rays on admit confirmed fractures of the lateral malleolus and medial malleolus, anterior dislocation of the ankle and overlying soft tissue swelling. Had reduction of fracture done under sedation in the ED per podiatry recommendation with good result. However, on reevaluation by podiatry on 02/04, surgical fixation was recommended. S/p right lower extremity close reduction under sedation and application of external fixator with Dr. Mae on 02/04. Patient tolerated procedure well, no intraoperative complications. Per podiatry, planning for outpatient open reduction total fixation of right lower extremity ankle fracture in 2 weeks. PT/OT/case management following. Medically ready for discharge on 02/05, discharged to SNF on 02/06. Continue pain management with scheduled Tylenol and as needed ibuprofen on discharge. Lovenox 40 mg daily for DVT prophylaxis. 2. Mild expected postoperative acute blood loss anemia in setting of chronic anemia ? Hemoglobin 10.7 on admit, baseline appears to be around 11. Postop CBC with hemoglobin 9.5, remained stable on recheck. Follow up CBC in 7 days to ensure continued stability of hemoglobin. 3. Elevated LFTs ? AST 376, ALT 234 on admit. Alk phos normal, LFTs otherwise benign and INR normal at 1.1. Unclear etiology for elevated LFTs. Patient notably has no abdominal pain. LFTs stable during admission. Recommend repeat CMP in 7 days for further monitoring. Chronic medical conditions: ? History of nonobstructive CAD, hypertension: Had left heart cath in 05/2023 with nonobstructive CAD noted. Continue home amlodipine. ? GERD: Stable. Continue home omeprazole. ? Depression: Stable. Continue home escitalopram. Total clinical time spent by myself addressing the patient's medical issues, reviewing all the data, and collaborating with patient's care team: 35 minutes. Physical Exam Const alert, oriented x3, no apparent distress and average body habitus Constitutional Narrative: Pleasant elderly female, laying comfortably in bed, conversing normally, in no acute distress. General Appearance: cooperative and comfortable HEENT normocephalic, head/scalp atraumatic, hearing grossly normal bilaterally, nasal mucous membranes and turbinates normal and moist oral mucous membranes Eyes PERRL, EOMs intact bilaterally and conjunctivae normal Neck full ROM Chest inspection of chest normal Resp normal respiratory effort, normal air movement, no use of accessory muscles and clear to auscultation bilaterally Cardio regular rate, regular rhythm, no murmurs and peripheral pulses 2+ throughout GI normal to inspection, nondistended, normoactive bowel sounds, soft to palpation, non-tender and non-distended Back/Spine normal ROM Extremity Extremity Narrative: External fixation device in place on right lower leg with ankle wrapped in Karri wrap, stable. Skin no rashes or lesions noted Neuro no focal motor deficits Speech: speech normal Psych mental status grossly normal Weight / BMI Weight Weight: 70.6 kg Body Mass Index (BMI) 29.4 ABG / Lab / Microbiology Data 02/07/24 06:09 02/06/24 06:35 Laboratory: Laboratory Results - last 24 hr 02/07/24 06:09: WBC 8.5, RBC 2.93 L, Hgb 9.3 L, Hct 29.0 L, MCV 99.0, MCH 31.7, MCHC 32.1, RDW Std Deviation 50.4 H, RDW Coeff of Juanito 14.3, Plt Count 258, MPV 11.2 Meaningful Use Info Meaningful Use Meaningful Use Diagnoses (Choose all that apply): None applicable Ischemic Stroke Statin Dosing Therapy Reference: STATIN DOSE THERAPY REFERENCE: * Patients > 75 years receive moderate or high dose statin therapy. * Patients 75 years or YOUNGER should receive HIGH intensity statin dose unless contraindicated. You will be required to document reason for non-treatment if statin daily dose does not meet guidelines. HIGH DOSE STATIN THERAPY DAILY Atorvastatin > than or = to 40 mg Rosuvastatin > than or = to 20 mg Amlodipine + Atorvastatin > than or = to 2.5/40 mg Ezetimibe + Simvastatin 10/80 mg Simvastatin 80mg Discharge Plan Admission Admit Date/Time: 02/06/24 07:22 Primary Reason for Your Visit: right ankle pain Attending Provider: Kailash Samuel Primary Care Provider: Dewayne Rios Consulting Providers: Dariana Rhodes; Van Munguia Discharge Orders/Prescriptions Prescriptions: New acetaminophen 500 mg Tablet 1,000 mg PO Q8 Qty: 0 0RF enoxaparin 40 mg/0.4 mL Syringe 40 mg subcut DAILY 30 Days Qty: 0 0RF ibuprofen 400 mg tablet 400 mg PO Q8H PRN (Reason: pain) 14 Days Qty: 14 0RF Continued escitalopram oxalate 20 mg tablet 20 mg PO DAILY omeprazole 40 mg capsule,delayed release(DR/EC) 40 mg PO DAILY amlodipine 10 mg tablet 2.5 mg PO DAILY Rx Instructions: Hold for SBP less than 120 mmHg timolol maleate 0.5 % drops 1 drp ophthalmic (eye) BID Referrals / Follow Up: Eddi Mae DPM [Med Staff - Active Staff] - Dewayne Rios MD [Primary Care Provider] - Disposition Disposition (needs filled in before D/C Order can be placed): [facility] Charges/Coding Visit Charges Inpatient E&M: 86214 Disch Hosp >30min
--- NOTE | 2024-02-07 10:45 | PHA.DC.MR.R ---
Pharmacy ID Med Reconciliation Pharmacy Service has performed discharge medication reconciliation for this patient. The patient's discharge medication list was reviewed for discrepancies and discrepancies were resolved. Medications at Discharge Home Medications escitalopram oxalate 20 mg tablet 20 mg PO DAILY 06/20/23 omeprazole 40 mg capsule,delayed release 40 mg PO DAILY 06/20/23 amlodipine 10 mg tablet 2.5 mg PO DAILY 10/23/23 timolol maleate 0.5 % eye drops 1 drp ophthalmic (eye) BID 02/04/24 acetaminophen 500 mg tablet 1,000 mg (2 x 500 mg) PO Q8 #0 tabs 02/07/24 enoxaparin 40 mg/0.4 mL subcutaneous syringe 40 mg (0.4 mL) subcut DAILY 30 days #0 mL 02/07/24 ibuprofen 400 mg tablet 400 mg PO Q8H PRN pain 14 days #14 tabs 02/07/24
--- NOTE | 2024-02-07 11:08 | CASEMGMT ---
Social Work- Physician updated and pt is ready for discharge today.? 7000 convalescent form completed in [facility] and sent along with discharge orders to [facility] [place] via [facility].? Transportation arranged with [facility] for 1:30PM pickup via ground ambulance.? SW met with pt and they are agreeable to discharge plan as stated above.? Spouse, Co[place], and bedside nurse notified of discharge time. Disposition: [facility], skilled level of care under convalescent stay. CINDA Bryant
[2024-02-07] MEDS: Polyethylene Glycol 3350 17 GM PACKET PO (12:50)
[2024-02-07] MEDS: 0.9% Saline Lock 10 ML Syringe IV (12:50)
[2024-02-07 13:00] VITALS: BP 141/76; PULSE 80; RESP 13; TEMP 36.4; O2SAT 92
== END 2024-02-07 13:37 | disposition skilled nursing facility (03) | DRG 494 ==
LOC: ED 19:37 → MS3 22:38
PROVIDERS: Internal Medicine; Podiatrist Foot & Ankle Surgery; Admitting Provider Internal Medicine; Emergency Provider Emergency Medicine; PCP Internal Medicine; Visit Provider Hospitalist
PROC: 0QHG35Z Insertion of External Fixation Device into Right Tibia, Percutaneous Approach (ICD-10-PCS; CPT 27814; principal; 2024-02-05 16:15)
DX: S82.851A Displaced trimalleolar fracture of right lower leg, initial encounter for closed fracture (principal); E66.3 Overweight; F32.A Depression, unspecified; I10 Essential (primary) hypertension; M19.90 Unspecified osteoarthritis, unspecified site; R26.2 Difficulty in walking, not elsewhere classified; I25.10 Atherosclerotic heart disease of native coronary artery without angina pectoris; K21.9 Gastro-esophageal reflux disease without esophagitis; I25.2 Old myocardial infarction; H81.10 Benign paroxysmal vertigo, unspecified ear; S82.841A Displaced bimalleolar fracture of right lower leg, initial encounter for closed fracture; W01.0XXA Fall on same level from slipping, tripping and stumbling without subsequent striking against object, initial encounter; Z82.5 Family history of asthma and other chronic lower respiratory diseases; Z87.891 Personal history of nicotine dependence; Z79.891 Long term (current) use of opiate analgesic; Y92.007 Garden or yard of unspecified non-institutional (private) residence as the place of occurrence of the external cause; Z90.49 Acquired absence of other specified parts of digestive tract; Z68.28 Body mass index [BMI] 28.0-28.9, adult
CPT/HCPCS: 36415; 73600; 73700; 76000; 80053; 83735; 84100; 84443; 85025; 85027; 85610; 93005; 94668; 97162; 97166; 97530; 97535; 99284; C1713; A4216; J2405

== ENCOUNTER 2024-02-20 06:10 | Day surgery (SDC) | payer MEDICARE, SELFPAY ==
[2024-02-20] VITALS (12 sets, daily range): BP systolic 92–121; BP diastolic 57–85; PULSE 83–96; RESP 16–20; TEMP 36.4–37.3; O2SAT 94–100; BMI 28.5
[2024-02-20] MEDS: Lactated Ringers 1,000 ML 15 ML IV (06:56)
--- NOTE | 2024-02-20 07:11 | PCM.PRE.AN2 ---
ASA Classification* ASA Classification ASA Classification: 3 Assessment & Plan Anesthesia* Anesthesia Assessment Anesthesia Assessment: Discussed sedation and/or anesthesia options, risks, benefits, and alternatives with patient/parents/legal guardian/POA. Questions invited. The patient/parents/legal guardian/POA seems to understand and agrees to proceed with anesthesia plan. Reviewed the physical assessment, medical history, allergy history and patient home medications list prior to surgery/procedure/anesthetic and documented any changes. Performed airway and anesthesia risk assessments. Anesthesia Type Anesthesia Type: General (right popliteal block consented request by surgeon) Anesthesia Focused Assessment* Temperature: 98.0 F Pulse Rate: 83 Blood Pressure: 121/77 Respiratory Rate: 16 Pulse Ox: 99 Airway Assessment Mouth opens: >3 cm Mallampati Score: II Focused Labs Anesthesia Preop lab: CBC WBC 8.5 K/mm3 (4.4-11.0) 02/07/24 06:09 RBC 2.93 M/mm3 (4.2-5.4) L 02/07/24 06:09 Hgb 9.3 g/dL (12.0-15.0) L 02/07/24 06:09 Hct 29.0 % (37-47) L 02/07/24 06:09 Plt Count 258 K/mm3 (150-450) 02/07/24 06:09 CHEMISTRY Potassium 4.2 mmol/L (3.5-5.1) 02/06/24 06:35 Sodium 138 mmol/L (136-145) 02/06/24 06:35 Magnesium 2.0 mg/dL (1.6-2.6) 02/05/24 05:17 Phosphorus 4.2 mg/dL (2.5-4.9) 02/05/24 05:17 BUN 10 mg/dL (7-18) 02/06/24 06:35 Creatinine 0.75 mg/dL (0.55-1.02) 02/06/24 06:35 Glucose 105 mg/dL (74-106) 02/06/24 06:35 POC Glucose 106 mg/dL (74-106) 06/21/23 06:21 TSH 1.97 uIU/mL (0.358-3.74) 02/05/24 05:17 COAG PT 14.0 SECONDS (11.7-14.9) 02/05/24 07:56 Pre-Assessment Diagnosis/Proposed Procedure Planned Operative Procedure(s): removal external hardware right ankle Anesthesia History Anesthesia History - financial reporting analyst: Anesthesia History - financial reporting analyst Hx Hospitalization Yes 02/20/24 06:39 Any Problems With Anesthesia No 02/20/24 06:39 Cholinesterase deficiency No 02/20/24 06:39 You/Your Family Experience No 02/20/24 06:39 fever (hyperthermia) with Relationship Recent Exposure to Contagious No 02/20/24 06:45 Disease Does patient have nerve No 02/20/24 06:39 stimulator Patient instructed to have device shut off --Does patient have Pacemaker No 02/20/24 06:45 or ICD? When Was Last Pacemaker Check QUESTION #4 FULL TEXT: You/Your Family Experience fever (hyperthermia) with Anesthesia Last Oral Intake Last Oral intake: Last Oral Intake NPO since 04:15 02/20/24 06:45 Meds taken in AM with sips of water? Meds patient instructed to take am of surgery PONV PONV - financial reporting analyst: PONV - financial reporting analyst Female Yes 02/20/24 06:39 HX of Motion Sickness No 02/20/24 06:39 HX of N/V After Surgery No 02/20/24 06:39 Non-Smoker Yes 02/20/24 06:39 Duration of Surgery greater Yes 02/20/24 06:39 than 60 minutes Number of Risk Factors 3 02/20/24 06:39 PONV Score Moderate Risk 02/20/24 06:39 Height & Weight Height & Weight: Anesthesia: Height & Weight Height 5 ft 1 in 02/20/24 06:45 Weight: 68.492 kg 02/20/24 06:45 Body Mass Index (BMI) 28.5 02/20/24 06:45 Respiratory Assessment Respiratory Assessment - financial reporting analyst: Respiratory Tract Infection Hx - financial reporting analyst Hx Respiratory Tract Infection No 02/20/24 06:39 STOP Sleep Apnea STOP Sleep Apnea - financial reporting analyst: STOP Sleep Apnea - financial reporting analyst Hx Hypertension Yes 02/20/24 06:39 Hx Sleep Apnea No 02/20/24 06:39 CPAP BIPAP Do you snore loudly (louder No 02/20/24 06:39 than talking or can be heard Do you often feel tired/ No 02/20/24 06:39 fatigued/ sleepy during daytime? Has anyone observed you stop No 02/20/24 06:39 breathing during sleep? STOP Results Negative 02/20/24 06:39 QUESTION #5 FULL TEXT : Do you snore loudly (louder than talking or can be heard through closed doors)? 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 Specify any problems Hx of Preganancy in last 3 No 02/20/24 06:39 Months Nurse Filling Out Transfusion MIKE 02/20/24 06:39 & Questions: Date: 02/20/24 02/20/24 06:39 Time: 06:41 02/20/24 06:39 Patient unable to answer at this time (ie. confused, unrespo /Reproduction History /Reproductive History - financial reporting analyst: /Reproductive Hx- financial reporting analyst Hx Now No 02/20/24 06:39 Gestational Age (in weeks): EDC: Hx Hx Para Hx Section SAB No 02/20/24 06:39 Active Medications Active Medications: Current Medications Generic Name Dose Route Start Last Admin Trade Name Freq PRN Reason Stop Dose Admin Cefazolin Sodium 2 gm/ Sodium 110 mls @ 150 mls/hr 02/20/24 07:30 Chloride IV 02/20/24 08:13 PREOP ONE Lactated Ringer's 1,000 mls @ 15 mls/hr 02/20/24 06:30 02/20/24 06:56 IV 15 mls/hr .Q48H MASON Administration PFSH Medical History Ankle fracture, right Hypertension NSTEMI (non-ST elevated myocardial infarction) (06/21/23) Atherosclerotic heart disease of [place] coronary artery without angina pectoris (06/21/23) Elevated liver enzymes Polymyositis Right rib fracture FHx: cholecystectomy Bronchitis Home Medications ?Medication ?Instructions ?Recorded ?Last Taken ?Type escitalopram oxalate 20 mg tablet 20 mg PO DAILY 06/20/23 Unknown History omeprazole 40 mg capsule,delayed 40 mg PO DAILY 06/20/23 Unknown History release amlodipine 10 mg tablet 2.5 mg PO DAILY 10/23/23 Unknown History timolol maleate 0.5 % eye drops 1 drp ophthalmic (eye) BID 02/04/24 02/04/24 History acetaminophen 500 mg tablet 1,000 mg (2 x 500 mg) PO Q8 #0 tabs 02/07/24 Unknown Rx enoxaparin 40 mg/0.4 mL 40 mg (0.4 mL) subcut DAILY 30 02/07/24 Unknown Rx subcutaneous syringe days #0 mL ibuprofen 400 mg tablet 400 mg PO Q8H PRN pain 14 days #14 02/07/24 Unknown Rx tabs ondansetron 4 mg disintegrating 4 mg PO Q8H PRN nausea and 02/07/24 Unknown Rx tablet vomiting 7 days #7 tabs oxycodone 5 mg tablet 5 mg PO BID PRN pain 7 days #14 02/10/24 Unknown Rx tabs bisacodyl 10 mg rectal suppository 10 mg NM DAILY PRN constipation 02/20/24 Unknown History cholestyramine (with sugar) 4 gram 1 ea PO DAILY 02/20/24 Unknown History powder for susp in a packet loperamide 2 mg tablet 2 mg PO Q6H PRN loose stool 02/20/24 Unknown History (Anti-Diarrheal (loperamide)) magnesium hydroxide 400 mg/5 mL 400 mg PO DAILY PRN constipation 02/20/24 Unknown History oral suspension (Milk of Magnesia) mineral oil (Fleet Mineral Oil 118 ml NM DAILY PRN constipation 02/20/24 Unknown History enema) pantoprazole 40 mg tablet,delayed 40 mg PO DAILY 02/20/24 Unknown History release Allergy/AdvReac Type Severity Reaction Status Date / Time erythromycin base Allergy Hives Verified 02/20/24 06:40 codeine AdvReac Upset Verified 02/20/24 06:40 Stomach morphine AdvReac Nausea Verified 02/04/24 15:39 Social History household members: spouse Smoking Status: Former smoker substance use type: does not use Review of Systems (Anesthesia) ROS Narrative System reviewed and no additional complaints, except as documented.
[2024-02-20] MEDS: Cefazolin 2 GM in 0.9% Normal Saline (100mL Bag) 100 ML IV (07:46)
--- NOTE | 2024-02-20 07:55 | RAD_ITS ---
PROCEDURE: Intraoperative fluoroscopy for ORIF of the medial and lateral malleolar fractures. DATE OF EXAMINATION: February 20, 2024. INDICATION: Female, 83 years old. Ankle fracture. FLUOROSCOPY TIME (if supplied): (3 minutes and 36 seconds) minutes/seconds. 6.36 mGy. 5 images were submitted. RAD/Ankle 2 Views IMPRESSION: Intraoperative fluoroscopic services provided for open reduction and internal fixation of the bimalleolar fracture. Electronically Signed: Rocky Greer MD at 12:27 EDT ,
[2024-02-20] MEDS: Vancomycin IV 1,000 MG/20 ML Vial 1000 MG OPERA.SITE (09:32)
[2024-02-20] MEDS: Bupivacaine Mpf 0.5% 30 ML VIAL (09:54)
--- NOTE | 2024-02-20 10:13 | PCM.POST.ANE ---
Anesthesia: Postop Eval I Current Vital Signs Temperature: 98.4 F Pulse Rate: 92 Blood Pressure: 104/68 Respiratory Rate: 18 Pulse Ox: 100 Oxygen Delivery Method: Room Air Assessment Airway patent: Yes Spontaneous unlabored respirations: Yes Mental status: Awake and Calm nausea: No Vomiting: No Anesthesia Complication: No Fluid Hydration Crystalloid volume administer (ml): 1,400 Total IV fluid infused: 1,400 Progress Note Anesthesia document: Postop Eval 1 completed: Yes
--- NOTE | 2024-02-20 10:14 | PCM.OPRPT ---
Problems Associated Problem List Diagnoses (1) Encounter for other orthopedic aftercare: (2) Encounter for planned postprocedural wound closure: (3) Displaced trimalleolar fracture of unspecified lower leg, initial encounter for closed fracture: (4) Dislocation of right ankle joint, initial encounter: Report of Operation Date of Procedure: 02/20/24 Pre-Operative Diagnosis: 1. Dislocated tri-malleolar ankle fracture closed, right lower extremity 2. Pain, right ankle 3. Plan postoperative procedure for wound closure, right lower extremity 4. Planned postoperative aftercare, right lower extremity Post-Operative Diagnosis: 1. Dislocated tri-malleolar ankle fracture closed, right lower extremity 2. Pain, right ankle 3. Plan postoperative procedure for wound closure, right lower extremity 4. Planned postoperative aftercare, right lower extremity Surgery/Procedure Performed:: 1. Removal of external fixator, right lower extremity 2. Delayed primary closure, right lower extremity 3. ORIF tri-malleolar ankle fracture, right lower extremity 4. Stress views, right lower extremity 5. Syndesmotic repair, right lower extremity Description of Surgical Findings:: 1. Removal of external fixator showed evidence of displaced medial mall and lateral malleolus. After open reduction total fixation of the right ankle fracture there showed adequate reduction of the posterior malleolus which was not fixated at this time due to adequate reduction. 2. Good anatomic reduction of the lateral mall and medial malleolus. 3. Ankle range of motion to the right lower extremity show no evidence of hardware catching or disruption of the ankle joint after hardware placement. Surgeon: Eddi Mae sales floor associate: Marlee Mclean Type of Anesthesia: Block,Regional, Local and Spinal General Anesthesia Anesthesiologist: Yan Glass Special Medications: Per anesthesia Specimen's removed: None Drains: None Estimated Blood Loss (mL): 30 mL Fluids Replaced: Per anesthesia Description of Procedure: Indication for procedure Mrs Britt is a 83-year-old female who was admitted to [facility] for open reduction internal fixation of the dislocated fibular fracture with application of external fixator. Patient has been status post approximately 2 weeks since his initial operation and due to the suppleness of the soft tissue it had been deemed necessary at this time to take the patient to the operating room for removal of external fixator, delayed primary closure, open reduction internal fixation of the distal fibular/tibial fracture, stress views with syndesmotic repair all of the right lower extremity. The nature of the problem, anticipated procedures, postop recovery/convalences and risk/complications include but not limited to infection, wound healing complications, hypertrophic scarring, numbness, tingling, chronic pain, CRPS, over and under correction, recurrence of deformity, DVT and or PE and the need for further surgery have been discussed in great detail with the patient. All questions have been answered to the patient's satisfaction. There are no guarantees given as to the outcome of the procedure. Description of Procedure: Under mild sedation, the patient was brought into the operating room and placed on the operating table in supine position. Once the patient was under spinal anesthesia, the right lower extremity was blocked at the level of the saphenous nerve using approximately 10 cc 0.5% Marcaine plain. The patient will be getting a popliteal block by anesthesia in the PACU after the procedure. Next, a timeout was then undertaken verifying the correct patient, extremity, visibility of preoperative markings, availability of the equipment. Right lower extremity external fixator was prepped at all pin sites prior to removal. After removal the right lower extremity will be prepped and draped using normal aseptic manner. A well-padded thigh tourniquet was donned to the right thigh. Next, attention was directed to the right lower extremity. Using a 6 inch Esmarch, right lower extremity was exsanguinated and elevated to 60 degrees for 1 minute. Procedure #1: Removal of external fixator, right lower extremity (CPT code: 83159) Next, attention was directed to the right lower extremity. Using the [place] T-handle, the external fixator of right lower extremity was removed without incident. Next, the 2 tibial half pins were removed without incident followed by the calcaneal transfixation pin without incident. All openings were flushed with copious ousmane of normal saline. Demineralized bone matrix was packed to all half pin holes to the proximal and distal right lower extremity. Small application of vancomycin powder was applied to all proximal and distal half pin holes. Procedure #2: Delayed primary closure, right lower extremity (CPT code: 17403) Next, attention was directed to the right lower extremity at the level of the half pin holes. Delayed primary closure was applied to the 2 proximal holes on the tibia and 2 distal holes on the medial lateral calcaneus using 3-0 nylon in simple interrupted suture technique. Procedure #3: Open reduction internal fixation trimalleolar ankle fracture, right lower extremity (CPT code: 09038) Next attention was directed right lower extremity. Using fluoroscopy the ankle joint, fibula as well as the syndesmotic was marked out prior to the incision. Using a #15 blade a full-thickness incision down to bone was carried over the lateral malleolus and distal fibula. Continued blunt dissection was carried down to bone using a almeida elevator. Sharp dissection was then continued to expose the spiral fracture which showed evidence of comminution to the the distal third of the fibula. Using a freer elevator, the fracture line was freed evacuating the hematoma. Copious ousmane of normal saline were used to irrigate the fracture site and remove the hematoma. Using a smooth [id number] tenaculum, the distal fragment was pulled out to length and held in place with my thumb. Using lobster claws, gentle clamping of the capital fragment of the distal fibula and shaft of the fibula was obtained. Fluoroscopy image showed adequate anatomic reduction. Next, a interfrag screw was placed perpendicular to the fracture site using AO technique, which was 2.7 mm x 30 mm fully threaded screw. Next, Elyssa lateral ankle plate was fixated and pinned in place with smooth BB tacks. A combination of locking and nonlocking screws were placed along the distal and proximal screw holes per the disc pad grinding machine feeder's recommendation with the rep in the room. Next, attention was directed to the medial malleolus, using smooth K wires the fracture fragment of the distal tibia was pinned in place through percutaneous fixation. Using a 15 blade stab incisions were made around the K wires. The glide holes were predrilled and to 40 mm cannulated screws were placed across the fracture fragment of the medial malleolus with good anatomic reduction noted under C-arm fluoroscopy. There was good reduction after fixation of the distal fibular fracture that aligned the posterior malleolus fragment into good anatomic reduction and at this time there is no need to cause additional incisions to the patient's already reduced bone as it did not encompass 25% of the articular cartilage of the tibia. Procedure #4: Stress views, right lower extremity (CPT code: 93983) Next, the right lower extremity was stressed with the knee flexed and the ankle dorsiflexed with external rotation that showed evidence of gapping along the tib-fib overlap of the right lower extremity. Due to the gapping and edema necessary to fix the syndesmosis at this time. Procedure #5: Syndesmotic repair, right lower extremity (CPT code: 07351) Next, attention was directed to the level of the syndesmosis through the lateral incision a Synchfix rope with cannulated screw was applied from a lateral to medial fashion, using the manufactures recommendation for the syndesmotic rope/synchfix was applied with good anatomic reduction. Next a 4-0 solid screw was placed in the proximal syndesmotic hole with 4 cortices noted on fluoroscopy as well as obtaining good anatomical reduction. Next, all incisions were flushed with copious normal saline. The lateral incision was sprinkled with vancomycin powder as well as the percutaneous incision along the medial malleolus. The medial malleolus stab incisions as well as the syndesmotic stab incisions, skin was reapproximated closed with 3-0 nylon in simple interrupted suture technique. The deep layer of the lateral incision was reapproximated and closed with 3-0 Monocryl and running locking suture technique. A thigh tourniquet to the right lower extremity was deflated at this time and reperfusion was noted instantly to the right lower extremity. All bleeders were ligated and cauterized as necessary. The subcutaneous layer was reapproximated closed using 3-0 Monocryl and running suture technique. The skin was reapproximated and closed on the lateral incision with jayro. 1 cc of [employer] via flow was injected to the lateral incision as well as the medial incision to aid in healing. Next, the right lower extremity was wiped clean and patted dry. All incisions were dressed with Betadine soaked Adaptic dry sterile dressing and a 2 layer Murillo AO splint at 90 degrees was fashioned to the right lower extremity. The ankle joints right lower extremity was put through range of motion and there showed no evidence of gapping with stressing the syndesmosis nor evidence of catching with any hardware into the joint. The patient tolerated the procedure and anesthesia well in apparent satisfactory condition and was transported to the PACU for further monitoring prior to discharge back to her SNF. Vital signs stable and vascular status intact to all digits bilateral. Post Operative Plan: Weightbearing: No weightbearing to the right lower extremity. Full weightbearing to left lower extremity. Antibiotics: 2 g Ancef through the IV DVT Prophylaxis: 81 mg aspirin Mari: None Dressing: Betadine soaked Adaptic, dry sterile dressing, 2 layer Murillo AO splint at 90 degrees. X-Rays: Post-operative films taken on the operating room. Pain Medication: Percocet 5/325, Flexeril 10 mg Follow-up: Patient to follow-up [address] Mae in office. Grafts/Implants Used: 1. Right medical ankle fracture set hardware. 2. 1 cc via flow Complications None Admit VTE Documentation VTE Present on Admission: No VTE Mechan Device Prophylaxis: SCD's VTE Pharm Prophylaxis ordered?: Yes
--- NOTE | 2024-02-20 10:53 | POSTOPAN2_ITS ---
Anesthesia Postop Eval I Sum Postop Eval Completion status Anesthesia document: Postop Eval 1 completed: Yes Anesthesia Postop Eval I Summary Anesthesia Postop Eval I Summary: Anesthesia Postop Eval I: Assessment Summary Airway patent Yes 02/20/24 10:14 [email or web address] [email or web address] Spontaneous unlabored Yes 02/20/24 10:14 [email or web address] [email or web address] respirations Mental status Awake,Calm 02/20/24 10:14 [email or web address] [email or web address] nausea No 02/20/24 10:14 STEREOTYPE [email or web address] Vomiting No 02/20/24 10:14 STEREOTYPE [email or web address] Anesthesia Postop Eval I: Fluid Summary Crystalloid volume administer 1,400 02/20/24 10:14 STEREOTYPE [email or web address] (ml) Colloids volume administered ( ml) Blood Product volume administered (ml) Total IV fluid infused 1,400 02/20/24 10:14 STEREOTYPE [email or web address] Anesthesia Postop Eval I: Summary Notes Anesthesia Complication No 02/20/24 10:14 STEREOTYPE [email or web address] Anesthesia Complication Comment: Post-operative progress note Anesthesia: Postop Eval II Evaluation Mental status: Awake and Calm Pain Level: 1 nausea: No Vomiting: No Complications Anesthesia Complication: No
--- NOTE | 2024-02-20 10:53 | PCM.POSTANE2 ---
Anesthesia Postop Eval I Sum Postop Eval Completion status Anesthesia document: Postop Eval 1 completed: Yes Anesthesia Postop Eval I Summary Anesthesia Postop Eval I Summary: Anesthesia Postop Eval I: Assessment Summary Airway patent Yes 02/20/24 10:14 AUTO BODY REPAIR TECHNICIAN.[email or web address] Spontaneous unlabored Yes 02/20/24 10:14 AUTO BODY REPAIR TECHNICIAN.[email or web address] respirations Mental status Awake,Calm 02/20/24 10:14 AUTO BODY REPAIR TECHNICIAN.[email or web address] nausea No 02/20/24 10:14 AUTO BODY REPAIR TECHNICIAN.[email or web address] Vomiting No 02/20/24 10:14 AUTO BODY REPAIR TECHNICIAN.[email or web address] Anesthesia Postop Eval I: Fluid Summary Crystalloid volume administer 1,400 02/20/24 10:14 AUTO BODY REPAIR TECHNICIAN.[email or web address] (ml) Colloids volume administered ( ml) Blood Product volume administered (ml) Total IV fluid infused 1,400 02/20/24 10:14 AUTO BODY REPAIR TECHNICIAN.[email or web address] Anesthesia Postop Eval I: Summary Notes Anesthesia Complication No 02/20/24 10:14 AUTO BODY REPAIR TECHNICIAN.[email or web address] Anesthesia Complication Comment: Post-operative progress note Anesthesia: Postop Eval II Evaluation Mental status: Awake and Calm Pain Level: 1 nausea: No Vomiting: No Complications Anesthesia Complication: No
[2024-02-20] MEDS: Acetaminophen 325 MG Tablet PO (12:30)
[2024-02-20] MEDS: oxyCODONE 5 MG Tablet PO (12:31)
== END 2024-02-20 12:46 | disposition skilled nursing facility (03) ==
LOC: SDC 06:15 → AC 06:16
PROVIDERS: PCP Internal Medicine; Visit Provider Podiatrist Foot & Ankle Surgery
PROC: (CPT 27814; principal; 2024-02-20 07:15)
DX: S82.851A Displaced trimalleolar fracture of right lower leg, initial encounter for closed fracture (principal); I10 Essential (primary) hypertension; I25.2 Old myocardial infarction; I25.10 Atherosclerotic heart disease of native coronary artery without angina pectoris; Z79.899 Other long term (current) drug therapy; Z87.891 Personal history of nicotine dependence; X58.XXXA Exposure to other specified factors, initial encounter
CPT/HCPCS: 20694; 13160; 27822; 27829; 01462; 73600; 76000; C1713; J7120; J2405

== ENCOUNTER 2024-02-26 10:36 | Emergency (ER) | payer MEDICARE, SELFPAY ==
[2024-02-26] VITALS (9 sets, daily range): BP systolic 101–121; BP diastolic 53–98; PULSE 85–113; RESP 18–32; TEMP 36.6–37.4; O2SAT 87–96
--- NOTE | 2024-02-26 11:39 | EX.ED.DYSGE1 ---
HPI History of Present Illness Chief Complaint: Confusion Informant: patient Onset/Context/Timing Onset: Today Context: Gradual Onset Timing: Intermittent Quality: Confused Location: Generalized Worsened by: Nothing Relieved by: Nothing Narrative Narrative: Patient presents with episode of confusion that was noticed today. Patient was also noted to have a fever today of 102 at her extended care facility. Patient had recent surgery for an ankle fracture. Patient admits to occasional cough and some shortness of breath at times. Patient denies any nausea or vomiting. Currently, patient states she feels fine. Patient states she does not feel confused. Patient denies any nausea or vomiting. Patient denies any paresthesias or weakness. [facility] Medical History (Updated 02/26/24 @ 15:[address] Milan Ortiz DO) Vertigo Atherosclerotic heart disease Osteoarthritis GERD (gastroesophageal reflux disease) Depression Essential hypertension Closed right fibular fracture Home Medications ?Medication ?Instructions ?Recorded ?Last Taken ?Type doxycycline monohydrate 100 mg 100 mg PO BID #20 CAPSULES 02/26/24 Unknown Rx capsule Allergy/AdvReac Type Severity Reaction Status Date / Time erythromycin base Allergy Rash Verified 02/26/24 10:55 codeine AdvReac Mild Upset Verified 02/26/24 10:55 Stomach morphine AdvReac Upset Verified 02/26/24 10:55 Stomach Surgical History (Updated 02/26/24 @ 11:[address] Milan Ortiz DO) Hx of cholecystectomy Status post ORIF of fracture of ankle Social History Smoking Status: Never smoker ROS ROS ED Constitutional Constitutional ED: Reports fever(s); Denies chills Eyes Eyes: Denies blurry vision or change in vision ENT ENT ED: Denies rhinorrhea or sore throat Cardiovascular Cardiovascular: Denies chest pain or palpitations Respiratory/Chest Respiratory/Chest: Reports cough and dyspnea Gastrointestinal Gastrointestinal: Denies nausea or vomiting Genitourinary Genitourinary ED: Denies dysuria or hematuria Musculoskeletal Musculoskeletal: Denies back pain or neck pain Integumentary Denies abscess or rash Neurologic Neurologic: Denies headache(s) or weakness Allergic/Immunologic Allergic/Immunologic ED: Denies mouth swelling or urticaria EXAM Physical Exam Const Vital Signs: 02/26/24 10:37 02/26/24 10:41 02/26/24 11:40 Temperature 99 F 99 F Temperature Source Oral Oral Pulse Rate 104 H 113 H Respiratory Rate 18 22 H Blood Pressure 121/75 H 115/97 H Blood Pressure Mean 90 103 Pulse Ox 87 93 94 Oxygen Delivery Method Room Air Nasal Cannula Nasal Cannula Oxygen Flow Rate (L/min) 2 2 02/26/24 12:00 02/26/24 13:00 02/26/24 14:00 Temperature 99.1 F 99.4 F H 99.3 F H Temperature Source Temporal Oral Oral Pulse Rate 100 101 H 111 H Respiratory Rate 18 20 H 32 H Blood Pressure 114/71 105/55 L 102/61 Blood Pressure Mean 85 71 74 Pulse Ox 94 95 95 Oxygen Delivery Method Nasal Cannula Nasal Cannula Nasal Cannula Oxygen Flow Rate (L/min) 2 2 Positive well nourished and well developed General Appearance ED: well developed and NAD HEENT Reports moist mucous membranes Neck supple and no JVD Resp normal respiratory effort Auscultation: rales bilateral base Cardio regular rate and regular rhythm GI normal to inspection, nondistended, normoactive bowel sounds and non-tender Palpation: soft Extremity Extremity Narrative: There is a short leg cast of the right lower extremity. Capillary refill was less than 2 seconds in all digits. Sensation was intact to light touch in all digits. There is good motion of all digits. There is no calf edema noted. Neuro oriented x3, CN's II-XII intact bilaterally and no sensory deficits noted Sensorium / Orientation: alert Motor Exam: strength 5/5 throughout Psych mental status grossly normal MDM MDM MDM Narrative Medical decision making narrative: Differential diagnosis includes pneumonia, atelectasis, urinary tract infection, sepsis, electrolyte abnormality, and wound infection. Chest x-ray will be obtained to assess for pneumonia and atelectasis. CBC will be obtained to assess for your leukocytosis and anemia. Basic metabolic profile will be obtained to assess for electrolyte abnormality and renal function. Urinalysis will be obtained to assess for urinary tract infection and hematuria. Blood cultures will be obtained to assess for sepsis. Serum lactate will be obtained to assess for sepsis. Lab Data Attestation: I reviewed the patient's lab results. Lab results narrative: CBC was reviewed. There is a leukocytosis of 24.7. Platelet count was slightly elevated at 480. There is a mild anemia with a hemoglobin of 10.9 and hematocrit 34.5. Basic metabolic profile was reviewed and was within normal limits. Serum lactate was reviewed and was normal at 1.5. Urinalysis was reviewed. There is no evidence of urinary tract infection or hematuria. Labs: Laboratory Results - last 24 hr 02/26/24 02/26/24 12:12 12:20 WBC 24.7 H RBC 3.61 L Hgb 10.9 L Hct 34.5 L MCV 95.6 MCH 30.2 MCHC 31.6 L RDW Std Deviation 47.3 H RDW Coeff of Juanito 13.4 Plt Count 480 H MPV 10.4 Immature Gran % (Auto) 1.100 H Neut % (Auto) 87.6 H Lymph % (Auto) 4.4 L Mellette % (Auto) 6.3 Eos % (Auto) 0.1 Baso % (Auto) 0.5 Absolute Neuts (auto) 21.7 H Absolute Lymphs (auto) 1.08 Nucleated RBC % 0 Differential Comment SCANNED Sodium 138 Potassium 4.1 Chloride 103 Carbon Dioxide 29.0 Anion Gap 6 BUN 11 Creatinine 0.81 Est GFR (MDRD) Af Amer 86 Est GFR (MDRD) Non-Af 71 BUN/Creatinine Ratio 13.5 Glucose 116 H Lactic Acid 1.5 Calcium 9.6 Urine Color Yellow Urine Clarity Clear Urine pH 7.0 Ur Specific [place] 1.010 Urine Protein Negative Urine Glucose (UA) Normal Urine Ketones Negative Urine Occult Blood Negative Urine Nitrite Negative Urine Bilirubin Negative Urine Urobilinogen Normal Ur Leukocyte Esterase Negative Urine RBC 0 SEEN Urine WBC 0 SEEN Ur Squamous Epith Cells 0 SEEN Urine Bacteria 0 SEEN Urine Mucus 0 SEEN Radiography Chest X-Ray - ED: 2 View, Read by ED Physician, Read by Radiologist and No Acute Disease Diagnostic Testing: Clinical Impression(s) from Imaging Studies Chest X-Ray 02/26/24 11:52 IMPRESSION: Elevation of the right hemidiaphragm. No acute abnormality is seen. Electronically Signed: Rocky Greer MD at 12:48 EDT , Ankle X-Ray 02/26/24 13:20 IMPRESSION: Status post ORIF of the bimalleolar fracture. Soft tissue swelling. Electronically Signed: Rocky Greer MD at 13:38 EDT , PA and lateral chest x-ray was obtained. There are 2 views. On my independent interpretation, lung calix are clear there is elevation of the right hemidiaphragm.. There is normal cardiac silhouette. Bony thorax is normal. There is no acute process noted. Radiologist also interpreted the x-ray and agrees. X-rays of the right ankle were obtained. There are 2 views. On my independent interpretation, there is no acute fracture. There is no evidence of osteomyelitis. There is some soft tissue swelling noted. Radiologist also interpreted the x-rays and agrees. Treatment and Re-Evaluation :: Patient was advised of her findings. Patient is awake, alert, and oriented to person, place, and time. Case was discussed with Dr. Munguia who is covering for Dr. Mae. He reviewed all of the patient's findings. He recommended starting the patient on doxycycline. He will follow-up with the patient as an outpatient. Patient was given a dose of doxycycline here and a prescription for doxycycline. Patient was instructed to continue using Tylenol as needed for pain or fevers. Patient was instructed to return if worse in any way. Patient and spouse understood and was agreeable with the plan. All questions were answered. Discharge Plan Triage Chief Complaint: Confusion ED Provider: Milan Ortiz Dx/Rx/DC Orders Clinical Impression: Episode of confusion, Leukocytosis Instructions: ED Confusion Prescriptions: New doxycycline monohydrate 100 mg capsule 100 mg PO BID Qty: 20 0RF Primary Care Provider: Dewayne Rios Referrals: Eddi Mae DPM [Med Staff - Active Staff] - 5-7 Days Dewayne Rios MD [Primary Care Provider] - Print Language: Palestinian Disposition Disposition: Home, Self Care
--- NOTE | 2024-02-26 11:52 | RAD_ITS ---
STUDY: X-RAY CHEST REASON FOR EXAM: Female, 83 years old. Fever and contusion. TECHNIQUE: AP and lateral views of the chest. COMPARISON: None. FINDINGS: EKG electrodes are seen. There is elevation of the right hemidiaphragm. There is no demonstrated pleural abnormality. Normal size heart. Normal mediastinum and herb. Normal visualized pulmonary arteries. There is atherosclerotic tortuosity of the aortic arch and descending thoracic aorta. There are diffuse degenerative changes of the visualized thoracic spine. The mineralization of the thoracic vertebrae. Increased kyphosis. Normal visualized ribs, clavicles, and shoulders. Hiatal hernia. RAD/Chest PA and Lateral IMPRESSION: Elevation of the right hemidiaphragm. No acute abnormality is seen. Electronically Signed: Rocky Greer MD at 12:48 EDT ,
[2024-02-26 12:22] LABS: Absolute Lymphocyte Count 1.08 X10^3/uL (0.83-4.51); Absolute Neutrophil Count 21.7 X10^3/uL (2.0-7.7); Basophil# 0.13 X10^3/uL; Basophil% 0.5 % (0-1); Eosinophil# 0.02 X10^3/uL; Eosinophils% 0.1 % (0-5); Hematocrit 34.5 % (37-47); Hemoglobin 10.9 g/dL (12.0-15.0); Lymphocyte # 1.08 X10^3/ul (0.83-4.51); Lymphocyte % 4.4 % (19-41); Mean Corp Hgb Conc 31.6 g/dL (32-36); Mean Corpuscular Hgb 30.2 pg (27.0-32.0); Mean Corpuscular Volume 95.6 fL (81-99); Mean Platelet Vol. 10.4 fl (6.2-12.0); Monocyte# 1.56 X10^3/uL; Monocyte% 6.3 % (0-10); NRBC Flagged by Analyzer 0 % (0-5); Neutrophil # 21.66 X10^3/uL (2.7-7.7); Neutrophil % 87.6 % (47-70); POSITIVE DIFFERENTIAL YES; Platelet Count 480 K/mm3 (150-450); RBC Distribution Width CV 13.4 % (11.6-14.6); RBC Distribution Width SD 47.3 fl (35.1-43.9); Red Blood Count 3.61 M/mm3 (4.2-5.4); White Blood Count 24.7 K/mm3 (4.4-11.0)
[2024-02-26 12:26] LABS: Differential Indicated SCAN CRITERIA MET
[2024-02-26 12:27] LABS: Bacteria 0 SEEN /hpf (None Seen); Mucous, Urine 0 SEEN /hpf (<or=2+); Red Blood Cells-Urine 0 SEEN /hpf (0-5); Squamous Epithelial Cells - UA 0 SEEN /hpf (5-10); White Blood Cells 0 SEEN /hpf (0-5)
[2024-02-26 12:34] LABS: Color, Urine Yellow (Yellow); Glucose, Dipstick Normal (Normal); Ketone-Dipstick Negative (Negative); Leukocyte Esterase-Dipstick Negative /ul (Negative); Nitrite-Dipstick Negative (Negative); Occult Blood-Urine Negative /ul (Negative); Protein-Dipstick Negative (Negative); Urine Bilirubin Dipstick Negative (Negative); Urine Clarity Clear (Clear); Urine Urobilinogen Normal (Normal)
[2024-02-26 12:39] LABS: Anion Gap 6 (5-15); BUN 11 mg/dL (7-18); BUN/Creat Ratio 13.5 RATIO (10-20); Calcium,Total 9.6 mg/dL (8.5-10.1); Chloride 103 mmol/L (98-107); Creatinine, Serum 0.81 mg/dL (0.55-1.02); EST Glomerular Filtration Rate 71 mL/min (>60); Est Glom Filt Rate - Afr Amer 86 mL/min (>60); Glucose 116 mg/dL (74-106); Potassium 4.1 mmol/L (3.5-5.1); Sodium Level 138 mmol/L (136-145)
[2024-02-26 12:45] LABS: Differential Comment SCANNED
[2024-02-26 12:51] LABS: Lactic Acid 1.5 mmol/L (0.4-1.9)
--- NOTE | 2024-02-26 13:20 | RAD_ITS ---
STUDY: X-RAY - RIGHT ANKLE REASON FOR EXAM: Female, 83 years old. Fever. Recent ankle surgery. TECHNIQUE: 2 view(s) of the ankle. COMPARISON: None. FINDINGS: Patient status post open reduction internal fixation of the distal fibular fracture and medial malleolar fracture with screw and metal plate fixation device. Normal tibiotalar articulation and ankle mortise. Normal visualized talus and calcaneus. The visualized subtalar, talonavicular, calcaneocuboid and tarsal articulations are normal. Soft tissue swelling. RAD/Ankle 2 Views IMPRESSION: Status post ORIF of the bimalleolar fracture. Soft tissue swelling. Electronically Signed: Rocky Greer MD at 13:38 EDT ,
--- NOTE | 2024-02-26 14:23 | ED.RN ---
[facility] requesting an update. this rn states as of right now we are waiting for doctor to discuss test results with patient. no futher questions at this time.
[2024-02-26] MEDS: Doxycycline 100 MG CAPSULE PO (15:02)
--- NOTE | 2024-02-26 15:21 | NURSING ---
Update given to Sendy Vargas. Physicians ETA [id number]
[2024-02-27 11:18] LABS: Pathologist Review Reviewed
== END 2024-02-26 16:28 | disposition home or self-care (01) ==
PROVIDERS: Emergency Provider Emergency Medicine; PCP Internal Medicine; Visit Provider Emergency Medicine
DX: R41.0 Disorientation, unspecified (principal); I10 Essential (primary) hypertension; D72.829 Elevated white blood cell count, unspecified; R06.02 Shortness of breath; I25.10 Atherosclerotic heart disease of native coronary artery without angina pectoris; Z98.890 Other specified postprocedural states; K21.9 Gastro-esophageal reflux disease without esophagitis; R50.9 Fever, unspecified
CPT/HCPCS: 71046; 73600; 80048; 81001; 83605; 85025; 87040; 99283; P9612; A4216

== ENCOUNTER → 2025-07-09 | Outpatient (CLI) | payer MEDICARE, MEDICAID, SELFPAY ==
--- NOTE | 2025-07-09 13:49 | PCM.CR.HP2 ---
CR - History & Physical General Arrival date:: 07/09/25 Arrival time:: 13:50 Date of Referral:: 05/22/25 Date of CR Evaluation:: 07/09/25 Referring Physician: Dr. Elizondo Primary Diagnosis: S/P Heart valve repair/replace History of Present Cardiac Event Onset Date Heart valve replacement or repair:: Yes (onset 05/15/2025) Medications Ambulatory Orders ?Medication ?Instructions ?Recorded escitalopram oxalate 20 mg tablet 20 mg PO DAILY 06/20/23 omeprazole 40 mg capsule,delayed 40 mg PO DAILY 06/20/23 release amlodipine 10 mg tablet 2.5 mg PO DAILY 10/23/23 timolol maleate 0.5 % eye drops 1 drp ophthalmic (eye) BID 02/04/24 acetaminophen 500 mg tablet 1,000 mg (2 x 500 mg) PO Q8 #0 tabs 02/07/24 enoxaparin 40 mg/0.4 mL 40 mg (0.4 mL) subcut DAILY 30 02/07/24 subcutaneous syringe days #0 mL ibuprofen 400 mg tablet 400 mg PO Q8H PRN pain 14 days #14 02/07/24 tabs ondansetron 4 mg disintegrating 4 mg PO Q8H PRN nausea and 02/07/24 tablet vomiting 7 days #7 tabs oxycodone 5 mg tablet 5 mg PO BID PRN pain 7 days #14 02/10/24 tabs ascorbic acid (vitamin C) 1,000 mg 1 g PO DAILY 90 days #90 tabs 02/20/24 tablet (Vitamin C) aspirin 81 mg tablet,delayed 81 mg PO DAILY 30 days #30 tabs 02/20/24 release bisacodyl 10 mg rectal suppository 10 mg NE DAILY PRN constipation 02/20/24 calcium 500 mg (as 1 tab PO DAILY 90 days #90 tabs 02/20/24 carbonate)-vitamin D3 15 mcg (600 unit) tablet (Os-Alex 500 + D3) cholestyramine (with sugar) 4 gram 1 ea PO DAILY 02/20/24 powder for susp in a packet cyclobenzaprine 10 mg tablet 10 mg PO TID muscle spasm 7 days 02/20/24 #21 tabs docusate sodium 100 mg capsule 100 mg PO DAILY 10 days #10 caps 02/20/24 (Colace) loperamide 2 mg tablet 2 mg PO Q6H PRN loose stool 02/20/24 (Anti-Diarrheal (loperamide)) magnesium hydroxide 400 mg/5 mL 400 mg PO DAILY PRN constipation 02/20/24 oral suspension (Milk of Magnesia) mineral oil (Fleet Mineral Oil 118 ml NE DAILY PRN constipation 02/20/24 enema) oxycodone-acetaminophen 5 mg-325 1 tab PO Q6H pain 7 days #28 tabs 02/20/24 mg tablet (Endocet) pantoprazole 40 mg tablet,delayed 40 mg PO DAILY 02/20/24 release doxycycline monohydrate 100 mg 100 mg PO BID #20 CAPSULES 02/26/24 capsule oxycodone-acetaminophen 5 mg-325 1 tab PO Q8H pain 7 days #21 tabs 03/06/24 mg tablet (Percocet) Allergies Allergies erythromycin base Allergy (Verified 03/06/24 07:35) Hives codeine Adverse Reaction (Verified 03/06/24 07:35) Upset Stomach morphine Adverse Reaction (Verified 03/06/24 07:35) Nausea n/v Sleep Disorder Evaluation Hx of Sleep Apnea: No Do you snore loudly (louder than talking or can be heard through closed doors)?: No Do you often feel tired/ fatigued/ sleepy during daytime?: No Has anyone observed you stop breathing during sleep?: No History of Hypertension (for STOP score): Yes STOP Results: Negative Advanced Directives Advanced Directives Do you have a Healthcare Power of Memorial Counselor?: Yes Living Will: Yes Advance Directives Information Provided: No Advance Directives on File: No DNR Order?:: No Past Medical History Covid-19 Screening Physicial Symptoms Other Clinical Concerns Exposure Risk Pertinent Comorbidities 65 years or older:: Yes Has a serious heart condition:: Yes Past Medical Illness Medical History Ankle fracture, right Hypertension NSTEMI (non-ST elevated myocardial infarction) (06/21/23) Atherosclerotic heart disease of [place] coronary artery without angina pectoris (06/21/23) Elevated liver enzymes Polymyositis Right rib fracture FHx: cholecystectomy Bronchitis Past Surgical History Past Surgical History (Updated 03/06/24 @ 07:35 by Anne Marie Moscoso) Hx of cholecystectomy Z90.49 Status post ORIF of fracture of ankle Z98.890, Z87.81 Social History Smoking History Smoking Status: Former smoker Years Smokin Packs Smoked per Day: 1.5 (stopped about 45 years ago) Alcohol Use Alcohol Usage: No Substance Abuse Hx Substance Use: No Occupation Occupation (List type of work in comments):: Retired Social Environment Status Marital Status: Current Living Arrangements Living Environment:: Assisted Living Children How many children do you have?: 4 Do any of your children live nearby?: Yes Safety Do you feel safe in your surroundings?: Yes Review of Systems Review of Systems Hints Review of Present Symptoms: Reports Appetite - Normal, Appetite - Special Diet and Sleep - Normal; Denies Shortness of Breath at Rest, Shortness of Breath with Exertion, PVD, Operative Discomfort, Angina, Wound Healing, Dizziness/Lightheadedness, Fatigue, Heart Arrhythmia/Irregularities or Sexual Changes Pain Is Patient Pain Free?: No Pain Location: other (ankle pain) Pain Level: 9/10 Risk Factor Assessment Chief Complaint Chief Complaint: S/P Heart valve repair/replace Vital Signs Pulse Ox: 98 Blood Pressure: 126/68 Pulse Pulse Rate: 58 Pulse Rhythm: Regular Hypertension How long have you been treated?: 4 to 5 months Blood Pressure Sitting - Right Arm: 126/68 Stress Stress: Home/Family Obesity Height: 5 ft 1 in Weight:: 150 lb Weight in Pounds: 150.0 lbs Body Mass Index (BMI): 28.3 Physical Inactivity Physical Inactivity: Reg Exercise 30 min/day Risk Stratification Risk Guidelines: Moderate Risk: Risk Factor for Smoking, Risk Factor for Diabetes, Risk Factor for Obesity and Risk Factor for Sedentary Lifestyle and Highest Risk: Risk Factor for Dyslipidemia, Risk Factor for Hypertension and Risk Factor for Depression For Smoking Smoking Risk Guidelines For Dyslipidemia Dyslipidemia Risk Guidelines For Diabetes Mellitus Diabetes Risk Guidelines For Obesity/Overweight Obesity/Overweight Risk Guidelines For Hypertension Hypertension Risk Guidelines For Sedentary Lifestyle Sedentary Lifestyle Risk Guidelines For Depression Depression Risk Guidelines Motivation Motivation to Participate On a scale of 1 to 10, how prepared are you to commit to attending program?: 10 What do you see as barriers to successfully being able to complete the program?: nothing What do you see as the benefits of succesfully completing the program? In other words, what do you hope to get out of participating in the program?: control risk factors Are there issues you are dealing with that will interfere with completing the program?: no Do you have a spouse or signficant other, family or friends who will help support you to complete the program?: yes
[2025-07-09 14:11] VITALS: BP 126/68; PULSE 58; O2SAT 98; BMI 28.3
--- NOTE | 2025-07-09 14:42 | PCM.CR.ITP ---
Diagnosis General Information Admitting Diagnosis: S/P Heart valve repair/replace Personal Learning Style:: Audio/Visual Barriers to Learning: No Barriers Stage of change r/t lifestyle modifications:: Contemplation Gave educational material for:: Treating Heart Disease, How The Heart Works, What it means to have Heart Disease, How Coronary Artery Disease is Diagnosed, Heart Procedures, What Heart Medications Do, Risk Factors & Modifications, Living an Active Life, Nutrition, Emotions & Heart Disease, Stress Management & Relaxation and Sleep Disorders & Heart Disease Education/Goals Cardiac Rehabilitation Goals Personal Goals: Initial Assessment: Control risk factors (learn risk factor modification) Scale for measuring improvement of personal goals Diagnosis & Disease Process Outcomes/Goals: Pt IDs own risk factors & lifestyle modifications by Session 10, Verbalizes symptoms of angina & response by session 3., Pt independently manages and Other Additional Outcomes/Goals: Plan/Interventions: Assist Pt to ID & engage in lifestyle modification to reduce CVD risk, Instruct on individual risk factors, Review symptoms of angina & emergency actions, Review secondary diagnosis & identify educational needs. and Other see comment 30 day Reassessments:: Not Met 30 day Reassessments:: Not Met 30 day Reassessments:: Not Met 30 day Reassessments:: Not Met Final Reassessments:: Not Met Safety Referral to Physical Therapy: No Fall Risk Assessed:: Yes Assistive Devices:: None Exercise - Initial Assessment Visit Date of Eval: 07/09/25 (initial eval) Mets: Pre-: >3 METS for 30 minutes by discharge, >5 METS for 30 minutes by discharge, >7 METS for 30 minutes by discharge and Unable to meet goal due to: (see comment below) Physician Prescribed Exercise Modalities: Treadmill, Rower, [place] AD-7, SciFit Stepper, [employer] Pro-II Ergometer and [employer] Lateral [place] Frequency: 3x/week for 12 weeks [36 sessions] Intensity: 60-80% of age predicted maximum heart rate reserve Duration: 30 - 45 minutes Current METSs:: 3 Target Heart Rate:: 82-102 Resting Blood Pressure: 126/68 EKG Type: SR w/PAC Outcomes & Goals Goals:: Verbalizes understanding of THR, RPE & goal METS by session 6, Documents in home exercise log/reports 30 min aerobic 5 day/wk by DC, Demonstrates accurate pulse taking by DC and Other additional outcome/goals: see below Intervention & Plan Exercise Program Goals: Instruct on personal THR & RPE, Instruct on MET level & personal MET goal, Show patient to take own pulse /validate performance until accurate, Instruct on home exercise and Other additional plan/int Physical Activity Home Exercise Physical Activity - Home Exercise: Safe Exercise, Warm-up, Self-monitoring, Cool-Down, Home Exercise > 30 min Daily and Sitting Time <3 hours/daily Outcomes & Goals Outcomes/Goals: Demonstrates correct Warm-up/exercise Cool-Down (S3) if = 2.5 METs, Verbalizes symptoms of exercise intolerance by Session 3 (S3), Demonstrate safe equipment use (S3) & follows exercise prescrition (6) and Other: See below Intervention & Plan Plan/Intervention: Instruct warm-up & cool-down if exercising at > 2 METs, Instruct on symptoms of exercise intolerance & actions to take, Instruct & monitor on saf, Assess intial functional capacity & safety risk and Other See below Nutrition - Initial Assessment Program Goals Nutrition Program Goals Patient has diagnosis of Hyperlipidemia (ICD E78)?: Yes Visit Date of Eval: 07/09/25 (initial eval. Nutrition score 0.) Cholesterol/Lipids (Other Core Measures) Determine presence & major risk factors that modify LDL goal: Cigarette smoking, Hypertension or hypertensive medication, Low HDL cholesterol <40 mg/dL*, Family history of premature CHD in Male < 55 years: female <65 yearsFa and Age men > 45 years; women >/= 55 years Outcomes/Goals: Pt IDs own risk factors & lifestyle modifications by Session 10, Verbalizes symptoms of angina & response by session 3., Pt independently manages and Other Additional Outcomes/Goals: Intervention/Plan: Advocate for lipid panel cholesterol medication if applicable, Instruct on personal lipid levels & lipid goals/NCEP guidelines, Instruct on cholesterol and Other additional plan/int Diabetes (Other Core Measures) Diabetes Type: Not Applicable Weight Mgt (Other Care) Height: 5 ft 1 in Weight:: 150 lb BMI: 28.3 Diagnosis Overweight/Obesity BMI> 30% ICD-10 E66: No Diagnosis High BMI/Morbid Obesity BMI> 35% ICD-10 Z68: No Outcomes/Goals: Pt sets, maintains & shows weight loss goal & trend during rehab and Other additional outcomes/goals Intervention/Plan: Instruct on ideal BMI & set weight loss goal w/patient, Assist pt to ID & incorporate diet changes for weight loss by S9, Refer to Structured Weight Loss program as appropriate, Encourage goal of using 250-300dcal per session for weight loss and Other additional plan/interventions Healthy Eating Habits Will attend diet classes:: Yes Outcomes/Goals:: Consume diet rich in vegs,fruits,whole grain/high fiber,fish,lean meat, Limit sat/trans fats,cholesterol & added salts & sugars and Other additional outcome/goals: Intervention/Plan:: Assess current eating habits and Other Additional plan/interventions Education Gave educational materials for:: Signs & symptoms of hypoglycemia, Signs & symptoms of hyperglycemia, Relate diabetes to coronary artery disease and Healthy eating Core - Initial Assessment Visit Date of Eval: 07/09/25 (initial eval) Medication Compliance Preventative Medication(s):: Aspirin and Clopidogrel/P2Y12 inhibit H/O mental health issues: depression, anxiety, or addiction?: Yes Doesn?t believe in the benefits of treatment?: No Believes medications are unnecessary or harmful?: No Has a concern about medication side effects?: No Expresses concern over the cost of medications?: No Outcomes/Goals: Verbalizes medications,desired effect & common side effects @ DC, Pt self-reports following medication regimen, Keeps card in wallet w/medications listed by DC and Other additional outcome/goals: Interventions/plans: Instruct on medication effects & side effects, Review medication list w/patient every two weeks, Instruct importance of taking meds as ordered & assist problem solving and Other additional Tobacco Use Tobacco Use: Cigarettes How long ago did you quit using tobacco products?: Greater than or equal to 6 months ago How many cigarettes do you smoke per day?: 30 Years Smokin (Pt stopped 45 yrs ago) Do you use smokeless tobacco?: No Outcomes/Goals: Smoking cessation achieved or maintained by discharge, Identify aids/strategies for achieving smoking cessation by session 6 and Other additional outcome/goals Interventions/plan: Instruct on effects of smoking & provide smoking cessation resource, Assist pt to set quit date & provide encouragement, Assist pt to develop strategies to achieve/maintain quit date, Assist pt w/nicotine replacement & medication for cessation success and Other additional plan/interventions Hypertension Hypertension Diagnosis:: Hypertension ICD-10 I10 Resting Blood Pressure:: 126/68 [place] [employer] Hypertension Guidelines Outcomes/Goals: Able to verbalize/achieve optimal blood pressure <130/80, Incorporates diet changes & exercise for blood pressure control by DC and Other additional outcomes/goals Interventions/plan: Instruct on optimal blood pressure, hypertension & medications, Instruct on effects of sodium, alcohol, stress, exercise &hypertension and Other additional plan/interventions Tobacco Cessation Referral Smoking Cessation Referral:: No Individual Education/Counseling:: No Education Schedule Given:: Yes Psychosocial - Initial Assess VIsit Date of Eval: 07/09/25 (initial eval) History of previous Mental disease:: Yes History of Emotional Disorders: Anxious and Depression (Pt is on Lexapro 10 mg) Self-reported stressors: Family Psychosocial Test Tool Used:: [employer] QOL Cardiac and PHQ-9 Questionnaire phq-9 Severity See PHQ-9 Score: 3 Referral to Behavioral Health PS - Interventions: Yes: Attend Stress Management Classes Outcomes/Goals: See list Psychosocial Outcomes/Goals:: ID's personal stressors & 2 strategies to manage stress by discharge and Other Additional outcome/goals: Intervention/Plan: See List Interventions/Plan:: Assess stressors,coping strategies & signs of derpression on admission, Instruct/assist pt to develop coping & personal stress Mgt strategies, Refer to Behavioral Health if appropriate, Refer to Physician if appropriate, Instruct patient to recognize signs & symptoms of depression, Instruct patient to recog and Other additional plan/intervention Exercise - 30-day Assessment Physician Prescribed Exercise Modalities: Treadmill, Rower, [employer] [place] AD-7, SciFit Stepper, SciFit Pro-II Ergometer and SciFit Lateral [place] 1 6 Tutor Exercise - 60-day Assessment Physician Prescribed Exercise Modalities: Treadmill, Rower, [place] AD-7, SciFit Stepper, SciFit Pro-II Ergometer and SciFit Lateral [place] Exercise - 90-day Assessment Physician Prescribed Exercise Modalities: Treadmill, Rower, [place] AD-7, SciFit Stepper, SciFit Pro-II Ergometer and SciFit Lateral [place] Exercise - Final/Discharge Physician Prescribed Exercise Modalities: Treadmill, Rower, [place] AD-7, SciFit Stepper, SciFit Pro-II Ergometer and SciFit Lateral [place] Frequency: 3x/week for 12 weeks [36 sessions] Intensity: 60-80% of age predicted maximum heart rate reserve Current METSs:: 3 Target Heart Rate:: 82-102 Nutrition - 30-Day Assessment Weight Mgt (Other Care) Height: 5 ft 1 in Weight:: 150 lb BMI: 28.3 Nutrition - 60-Day Assessment Weight Mgt (Other Care) Height: 5 ft 1 in Weight:: 150 lb BMI: 28.3 Core - 30-Day Assessment Tobacco Use Years Smokin (Pt stopped 45 yrs ago) Core - Final Assessment Hypertension Resting Blood Pressure:: 126/68 [place] [employer] Hypertension Guidelines Core - 60-Day Assessment Hypertension Resting Blood Pressure:: 126/68 [place] [employer] Hypertension Guidelines Psychosocial - 30-Day Assess Referral to Behavioral Health PS - Interventions: Yes: Attend Stress Management Classes Psychosocial - 60-Day Assess Referral to Behavioral Health PS - Interventions: Yes: Attend Stress Management Classes Psychosocial - 90-Day Assess Referral to Behavioral Health PS - Interventions: Yes: Attend Stress Management Classes Psychosocial - Final Assessmen Psychosocial Test phq-9 Severity See PHQ-9 Score: 3 Referral to Behavioral Health PS - Interventions: Yes: Attend Stress Management Classes Nutrition - 90-Day Assessment Weight Mgt (Other Care) Height: 5 ft 1 in Weight:: 150 lb BMI: 28.3 Nutrition - Final Assessment Program Goals Patient has diagnosis of Hyperlipidemia (ICD E78)?: Yes Weight Mgt (Other Care) Height: 5 ft 1 in Weight:: 150 lb BMI: 28.3
[2025-07-09 14:51] VITALS: BP 126/68; BMI 28.3
== END | disposition home or self-care (01) ==
PROVIDERS: PCP Internal Medicine; Referring Provider Internal Medicine Cardiovascular Disease; Visit Provider Internal Medicine Cardiovascular Disease
DX: I35.0 Nonrheumatic aortic (valve) stenosis (principal)